=== PATIENT | male | born 1940 | race African-American/Black ===

== ENCOUNTER 2020-12-19 17:30 | Inpatient (IN) ==
[2020-12-19 17:47] VITALS: BMI 18.2
--- NOTE | 2020-12-19 17:58 | DR.DIZZY ---
HPI Time seen Time Seen by Provider: 12/19/20 17:51 PCP Primary Care Physician: unknown Complaint Chief Complaint Doctor Comments: ams- confused- fatigue- Chief Complaint:: ems transported pt from home. family there states that pt has not been himself and has no illnesses. he has not got up the last 3 days and has been confused. pt is severly emiaciated and verbal communication is diff to understand. Self Treatment fo Chief Complaint: o2 via ems increased o2 sat to 90% had been low on ems arrival COVID-19 Coronavirus risk:travel/contact w/high risk person: No Has patient experienced Coronavirus symptoms: Yes Nurses Notes Reviewed Nurses Notes Review: Yes Source History Provided: EMS Mode of Arrival Mode of Arrival: EMS Timing Onset of Chief Complaint: 12/19/20 Symptom Onset: Unknown Location of Weakness Weakness Location: Generalized Context Stroke Symptoms: None Associated signs and symptoms Associated Signs and Symptoms: Weak PMH PMH Past Medical History: No Past Medical History Comment: unknown Past Surgical History: No (unknown) Family History History of Family Medical Conditions: No (unknown) Social History Do you use any recreational Drugs:: No Lives With: Family Lives Where: Home Travel Risk Coronavirus risk:travel/contact w/high risk person: No Infectious screening In the last 2 months have you had wt loss of >10#?: NO Have you had fever, night sweats or hemotysis?: No Have you traveled outside the country in the last 6 months?: No Isolation: Standard ROS Review of Systems Constitutional: See HPI Eyes: No Symptoms Reported ENTM: No Symptoms Reported Respiratoy: See HPI Cardiovascular: See HPI Gastrointestinal/Abdominal: See HPI Genitourinary: No Symptoms Reported Neurological: No Symptoms Reported Musculoskeletal: No Symptoms Reported Integumentary: No Symptoms Reported All Other Systems: Reviewed and Negative PE Vital Signs Vitals: Temperature 98.0 F Pulse Rate 91 Respiratory Rate 20 Blood Pressure 134/83 O2 Sat by Pulse Oximetry 89 General General Appearance: Lethargic and In Distress Head Head Exam: Normal Inspection, Atraumatic and Normocephalic Eyes Eye exam: Normal Appearance and PERRL ENT ENT Exam: Normal Exam Neck Neck Exam: Normal Inspection and Full ROM Respiratory Respiratory Exam: Normal Lung Sounds Bilat; negative Accessory Muscle Use Cardiovascular Cardiovascular Exam: Regular Rate and Normal Heart Sounds Abdominal Exam Abdominal Exam: Normal Inspection and Normal Bowel Sounds Extremeties Extremities Exam: Normal Inspection and Full ROM Back Back Exam: Normal Inspection and Full ROM Neurologic Neurological Exam: Other (mild ly confused and somnolent) Patient Oriented To: Person and Place Skin Skin Exam: Warm and Dry ROR Labs Reviewed Laboratory Results Reviewed?: Yes Result Diagrams: 12/19/20 19:12/19/20 19: Laboratory: WBC 4.1 X10^3/uL (3.6-10.0) 12/19/20: RBC 5.43 X10^6/uL (4.7-6.0) 12/19/20 19: Hgb 16.7 g/dL (13.5-18.0) 12/19/20 19: Hct 48.7 % (42.0-54.0) 12/19/20: MCV 89.7 fL (80.0-100.0) 12/19/20 19: MCH 30.7 pg (27.0-34.0) 12/19/20: MCHC 34.2 g/dL (33.0-35.0) 12/19/20 19: RDW 13.4 % (11.6-16.5) 12/19/20 19: Plt Count 163 X10^3/uL (150.0-450.0) 12/19/20 19: MPV 9.8 fL (7.4-11.0) 12/19/20 19: Neut % (Auto) 85.6 % (42.0-75.0) H 12/19/20 19: Lymph % (Auto) 7.9 % (21.0-51.0) L 12/19/20 19: [place] % (Auto) 6.2 % (0.0-13.0) 12/19/20 19: Eos % (Auto) 0.1 % (0.9-2.9) L 12/19/20 19: Baso % (Auto) 0.2 % (0.2-1.0) 12/19/20 19: Neut # (Auto) 3.5 x10^3/uL (2.2-4.8) 12/19/20 19: Lymph # (Auto) 0.3 X10^3/uL (1.3-2.9) L 12/19/20 19:01 [place] # (Auto) 0.3 x10^3/uL (0.3-0.8) 12/19/20 19:01 Eos # (Auto) 0.0 x10^3/uL (0.0-0.2) 12/19/20 19:01 Baso # (Auto) 0.0 X10^3/uL (0.0-0.1) 12/19/20 19:01 Absolute Nucleated RBC 0.7 /100WBC 12/19/20 19:01 Sample Site Lr 12/19/20 22:00 ABG pH 7.510 (7.35-7.45) H 12/19/20 22:00 ABG pCO2 23.0 mmHg (35.0-45.0) L 12/19/20 22:00 ABG pO2 49.0 mmHg (80.0-100.0) L* 12/19/20 22:00 ABG HCO3 18.4 mmol/L (22-26) L 12/19/20 22:00 ABG O2 Saturation 88.0 % (90-100) L 12/19/20 22:00 ABG Base Excess -3.0 mmol/L (-2.0-2.0) L 12/19/20 22:00 Andrew Test Pos 12/19/20 22:00 A-a Gradient 72.0 mmHg 12/19/20 22:00 FiO2 21.0 12/19/20 22:00 Blood Gas Comments Daron well ae 12/19/20 22:00 Sodium 139 mmol/L (136-145) 12/19/20 19:01 Corrected Sodium TNP 12/19/20 19:01 Potassium 4.0 mmol/L (3.5-5.1) 12/19/20 19:01 Chloride 101 mmol/L (98-107) 12/19/20 19:01 Carbon Dioxide 25.8 mmol/L (21-32) 12/19/20 19:01 BUN 19 mg/dL (7-18) H 12/19/20 19:01 Creatinine 1.12 mg/dL (0.70-1.30) 12/19/20 19:01 Est GFR (MDRD) Af Amer > 60 (>60) 12/19/20 19:01 Est GFR (MDRD) Non-Af > 60 (>60) 12/19/20 19:01 Glucose 105 mg/dL (65-99) H 12/19/20 19:01 Calcium 9.1 mg/dL (8.5-10.1) 12/19/20 19:01 Corrected Calcium 10.1 mg/dL (8.5-10.1) 12/19/20 19:01 Total Bilirubin 1.30 mg/dL (0.2-1.0) H 12/19/20 19:01 AST 59 Units/L (15-37) H 12/19/20 19:01 ALT 30 Units/L (12-78) 12/19/20 19:01 Alkaline Phosphatase 60 Units/L (46-116) 12/19/20 19:01 Total Protein 8.4 g/dL (6.4-8.2) H 12/19/20 19:01 Albumin 2.8 g/dL (3.4-5.0) L 12/19/20 19:01 Globulin 5.6 g/dL (2.5-4.5) H 12/19/20 19:01 Albumin/Globulin Ratio 0.5 Ratio (1.1-2.1) L 12/19/20 19:01 Lipase 185 Units/L (73-393) 12/19/20 19:01 Specimen Type Clean catch urine 12/20/20 02:17 Urine Color Dark yellow (YELLOW) 12/20/20 02:17 Urine Appearance Hazy (CLEAR) 12/20/20 02:17 Urine pH 6.0 (5.0 - 8.0) 12/20/20 02:17 Ur Specific [place] 1.015 (1.000-1.030) 12/20/20 02:17 Urine Protein 3+ (NEGATIVE) 12/20/20 02:17 Urine Glucose (UA) Negative (NEGATIVE) 12/20/20 02:17 Urine Ketones 2+ (NEGATIVE) 12/20/20 02:17 Urine Occult Blood 3+ (NEGATIVE) 12/20/20 02:17 Urine Nitrite Negative (NEGATIVE) 12/20/20 02:17 Urine Bilirubin 1+ (NEGATIVE) 12/20/20 02:17 Urine Urobilinogen 3+ (NORMAL) 12/20/20 02:17 Ur Leukocyte Esterase Negative (NEGATIVE) 12/20/20 02:17 Urine RBC 3-5 /HPF (0-3) A 12/20/20 02:17 Urine WBC 3-5 /HPF (0-5) 12/20/20 02:17 Ur Squamous Epith Cells Rare /HPF (NEGATIVE) 12/20/20 02:17 Urine Bacteria Trace /HPF (NEGATIVE) 12/20/20 02:17 Urine Mucus Few /HPF (NEGATIVE) 12/20/20 02:17 Urine Sperm Numerous /HPF (NEGATIVE) 12/20/20 02:17 Ur Culture Indicated? No/not indicated 12/20/20 02:17 SARS-CoV-2 (PCR) Positive (NEGATIVE) A 12/19/20 19:32 Influenza Type A (PCR) Negative (NEGATIVE) 12/19/20 19:32 Influenza Type B (PCR) Negative (NEGATIVE) 12/19/20 19:32 RSV (PCR) Negative (NEGATIVE) 12/19/20 19:32 XRAY X-ray Results: pos infiltrates on CXR Opioid Opioid Risk Tool Age (Jorge box if 16-45): No Total: 0 Total Score Risk Category: Low Risk Copyright: Apolinar RICE predicting aberrant behaviors Diagnosis Discharge Problem: COVID, Acute respiratory distress ADDITIONAL NOTES Additional Notes Additional Notes: admit to dr borjas
--- NOTE | 2020-12-19 19:02 | CT ---
BRAIN W/O CONCLINICAL INDICATION: CONFUSIONTECHNIQUE: Images were obtained through the head per standard CT protocol. Multiplanar reformatted images were generated from the CT dataset. Dose reduction techniques including Automated Exposure Control (AEC) and adjustment of mA and kV were utlized.COMPARISON:NoneFINDINGS:Diffuse patchy and confluent periventricular and subcortical hypoattenuation with associated volume loss . There is no evidence of acute infarction, intracranial hemorrhage, mass or mass effect, or abnormal extra-axial collection . The density of the larger dural venous sinuses is normal. Age-related, ex-vacuo dilatation of the ventricles and sulci . The skull base and calvarium are normal . The included paranasal sinuses and mastoid air cells are predominantly clear .IMPRESSION:1. No acute intracranial abnormality. Chronic microangiopathic changes and ex vacuo dilatation of the ventricles and sulci.[]Electronically signed by: GLEN CHIN (Dec 19, 2020 19:00:37)
--- NOTE | 2020-12-19 19:08 | RAD ---
CHEST, 1 VIEWHISTORY: he has not got up the last 3 days and has been confused. pt is severly emiaciated and verbal communication is diff to understandStudy: Single view of the chest.Comparison:NoneFindings:The cardiomediastinal silhouette is normal. Bilateral interstitial prominence, possible early alveolar infiltrates. No focal consolidations, pleural effusions or pneumothorax. Osseous structures demonstrate no acute abnormality.IMPRESSION:1. Bilateral interstitial prominence and early alveolar infiltrates. Findings may represent atypical infection, including viral etiologies.Electronically signed by: GLEN CHIN (Dec 19, 2020 19:06:01)
--- NOTE | 2020-12-19 19:09 | CT ---
HISTORYAbdominal painSTUDYABDOMEN/PELVIS W/O CONCOMPARISONNoneTECHNIQUENon-contrasted axial CT images of the abdomen and pelvis were obtained and reformatted into coronal and sagittal planes for further evaluation.Radiation dose: 472.50 mGy-cm total DLPFINDINGSGround-glass airspace opacities throughout the majority of the imaged lung parenchyma.Mild centrilobular emphysema.Stomach appears normal.Hepatic cysts.Otherwise, the liver, spleen, pancreas and adrenal glands are unremarkable.Atherosclerotic changes to the aorta and iliac vessels without aneurysm.Gallbladder appears normal.No intra or extrahepatic biliary dilatation.Unremarkable appearance of the kidneys.No hydronephrosis, hydroureter or ureteral calculus.Unremarkable appearance of the urinary bladder.Normal appearance of the small and large bowel.Reproductive structures are unremarkable.No evidence of acute appendicitis.No pneumoperitoneum.No significant fluid collection.No adenopathy.No acute osseous abnormality.Moderate degenerative disc disease at L4-L5.Otherwise, mild degenerative disc disease in the remainder of the thoracolumbar spine.Grade 1 anterolisthesis of L4-L5; secondary to posterior degenerative changes.Severe facet degenerative changes from L3-S1.IMPRESSION1. No acute intra-abdominal abnormality detected.2. Ground-glass airspace opacities throughout the majority of the imaged lung parenchyma. Findings are concerning for an atypical/viral infectious process. Recommend correlation with COVID-19 testing.3. Mild centrilobular emphysema.Electronically signed by: Reza Chong (Dec 19, 2020 19:07:49)
[2020-12-19 19:10] LABS: BASOPHILS % (AUTO) 0.2 % (0.2-1.0); EOSINOPHILS % (AUTO) 0.1 % (0.9-2.9); HEMATOCRIT 48.7 % (42.0-54.0); HEMOGLOBIN 16.7 g/dL (13.5-18.0); LYMPHOCYTES # (AUTO) 0.3 X10^3/uL (1.3-2.9); LYMPHOCYTES % (AUTO) 7.9 % (21.0-51.0); MEAN CORPUSCULAR HEMOGLOBIN 30.7 pg (27.0-34.0); MEAN CORPUSCULAR HGB CONC 34.2 g/dL (33.0-35.0); MEAN CORPUSCULAR VOLUME 89.7 fL (80.0-100.0); MEAN PLATELET VOLUME 9.8 fL (7.4-11.0); MONOCYTES # (AUTO) 0.3 x10^3/uL (0.3-0.8); MONOCYTES % (AUTO) 6.2 % (0.0-13.0); NEUTROPHILS # (AUTO) 3.5 x10^3/uL (2.2-4.8); NEUTROPHILS % (AUTO) 85.6 % (42.0-75.0); PLATELET COUNT 163 X10^3/uL (150.0-450.0); RED BLOOD COUNT 5.43 X10^6/uL (4.7-6.0); RED CELL DISTRIBUTION WIDTH 13.4 % (11.6-16.5); WHITE BLOOD COUNT 4.1 X10^3/uL (3.6-10.0)
[2020-12-19 19:23] LABS: ALANINE AMINOTRANSFERASE 30 Units/L (12-78); ALBUMIN 2.8 g/dL (3.4-5.0); ALKALINE PHOSPHATASE 60 Units/L (46-116); ASPARTATE AMINO TRANSFERASE 59 Units/L (15-37); BLOOD UREA NITROGEN 19 mg/dL (7-18); CALCIUM 9.1 mg/dL (8.5-10.1); CARBON DIOXIDE 25.8 mmol/L (21-32); CHLORIDE 101 mmol/L (98-107); COR CA(FOR HYPOALB) 10.1 mg/dL (8.5-10.1); CREATININE 1.12 mg/dL (0.70-1.30); LIPASE 185 Units/L (73-393); SODIUM 139 mmol/L (136-145); TOTAL PROTEIN 8.4 g/dL (6.4-8.2); eGFR NON BLACK RACES > 60 (>60)
[2020-12-19 22:05] LABS: ABG ALLEN TEST POS; ABG HCO3 18.4 mmol/L (22-26)
[2020-12-19] MEDS ORDERED: DECADRON INJ IVP ONE (22:11)
[2020-12-19] MEDS ORDERED: LOVENOX INJ 80 MG SYR SC ONE (22:12)
[2020-12-19] MEDS ORDERED: DECADRON INJ ONE (23:47)
[2020-12-19] MEDS ORDERED: LOVENOX INJ 60 MG SYR SC ONE (23:47)
[2020-12-20 02:31] LABS: BILIRUBIN,URINE 1+ (NEGATIVE); BLOOD/HEMOGLOBIN,URINE 3+ (NEGATIVE); GLUCOSE, URINE NEGATIVE (NEGATIVE); KETONES,URINE 2+ (NEGATIVE); LEUKOCYTE ESTERASE ,URINE NEGATIVE (NEGATIVE); NITRITES,URINE NEGATIVE (NEGATIVE); PROTEIN,URINE 3+ (NEGATIVE); UROBILINOGEN,URINE 3+ (NORMAL)
[2020-12-20 02:39] LABS: APPEARANCE,URINE HAZY (CLEAR); COLOR,URINE DARK YELLOW (YELLOW)
[2020-12-20 02:40] LABS: BACTERIA,URINE TRACE /HPF (NEGATIVE); MUCUS,URINE FEW /HPF (NEGATIVE); SPERM,URINE NUMEROUS /HPF (NEGATIVE); SQUAMOUS EPITHELIAL CELL,UR RARE /HPF (NEGATIVE)
[2020-12-20] MEDS ORDERED: NS 100 ML IV 100 ML ONE (09:47)
--- NOTE | 2020-12-20 11:12 | CT ---
CTA CHESTCLINICAL INDICATION: ELEVATED D-DIMERPROCEDURE: Non gated axial images of the chest were obtained with intravenous contrast according to pulmonary embolism protocol. MIPS were reconstructed Dose reduction techniques including Automated Exposure Control (AEC) and adjustment of mA and kV were utlized.COMPARISON:NoneFINDINGS:No evidence of a pulmonary embolism to the level of the segmental pulmonary arteries.The heart is normal in size . No pericardial effusion . Patchy bilateral ground-glass opacities are present. No suspicious mediastinal or axillary lymph nodes . No focal consolidations, pleural effusions or pneumothorax .Airways are patent . No suspicious pulmonary nodules or masses .Limited images of the upper abdomen are unremarkable.No aggressive osseous lesions.IMPRESSION:1. No evidence of pulmonary embolism.2. Patchy bilateral ground-glass opacities consistent with acute, atypical infection including viral etiologies.Electronically signed by: GLEN CHIN (Dec 20, 2020 11:10:47)
[2020-12-20] MEDS: NS 1000 ML 1,000 ML with MAGNESIUM SULFATE 50% INJ VIAL 1 G, MVI INJ (ADULT) 10 ML IV SCH ×3 (11:24)
[2020-12-20] MEDS ORDERED: XANAX PO PRN (13:36)
[2020-12-20] MEDS ORDERED: ATIVAN INJ 2 MG VIAL IVP ONE (13:37)
[2020-12-20] MEDS ORDERED: MORPHINE SULFATE INJ 2 MG INJ ONE (13:40)
[2020-12-20] MEDS: MORPHINE SULFATE INJ 2 MG INJ IVP PRN (13:44)
[2020-12-20] MEDS ORDERED: REMDESIVIR 200 MG in NS 250 ML IV 250 ML IV ONE (13:51)
[2020-12-20] MEDS ORDERED: PHARMACY CONSULT - IVERMECTIN XX SCH (14:00)
[2020-12-20 14:06] LABS: ABG BASE EXCESS -4.5 mmol/L (-2.0-2.0)
[2020-12-20 14:07] LABS: ABG ALLEN TEST POS; ABG HCO3 17.8 mmol/L (22-26)
[2020-12-20] MEDS ORDERED: NS 50 ML IV 50 ML IV ONE ×2 (15:07→19:56)
[2020-12-20] MEDS ORDERED: NS 250 ML IV 250 ML IV ONE (15:07)
[2020-12-20] MEDS ORDERED: REMDESIVIR IV ONE (15:07)
[2020-12-20] MEDS ORDERED: NS 1000 ML 1,000 ML ONE (15:07)
[2020-12-20] MEDS ORDERED: IVERMECTIN ONE (15:07)
[2020-12-20] MEDS ORDERED: ATIVAN INJ 2 MG VIAL ONE (15:08)
[2020-12-20 15:20] LABS: CKMB % 0.6 % (<4); CREATINE KINASE 177 Units/L (39-308); CREATINE KINASE MB < 1.0 ng/mL (0-4.0); TROPONIN I < 0.02 ng/mL (0-1.5)
[2020-12-20] MEDS: ASCORBIC ACID INJ MULTI-DOSE VIAL 1,500 MG in NS 100 ML IV 100 ML IV SCH ×2 (15:39→22:09)
[2020-12-20] MEDS: NS 1000 ML 1,000 ML IV SCH (15:39)
[2020-12-20] MEDS ORDERED: ASCORBIC ACID INJ MULTI-DOSE VIAL IV ONE (19:56)
[2020-12-20] MEDS ORDERED: SOLU-Medrol 125 MG VIAL ONE (19:56)
[2020-12-20] MEDS ORDERED: PEPCID TAB 40 MG ONE (19:56)
[2020-12-20] MEDS ORDERED: LOVENOX INJ 30 MG SYR SC ONE (19:56)
[2020-12-20] MEDS ORDERED: ZINC SULFATE ONE (19:56)
[2020-12-20] MEDS: BROVANA IN SCH (20:40)
[2020-12-20] MEDS: PULMICORT NEB TX 0.5 MG NEB SCH (20:40)
[2020-12-20] MEDS: IVERMECTIN PO SCH (22:08)
[2020-12-20] MEDS: PEPCID TAB 40 MG PO SCH (22:09)
[2020-12-20] MEDS: SOLU-Medrol 125 MG VIAL IVP SCH (22:09)
[2020-12-20] MEDS: LOVENOX INJ 30 MG SYR SC SCH (22:09)
[2020-12-20] MEDS: ZINC SULFATE PO SCH (22:09)
[2020-12-21] MEDS ORDERED: ASCORBIC ACID INJ MULTI-DOSE VIAL IV ONE ×3 (02:45→13:39)
[2020-12-21] MEDS ORDERED: SOLU-Medrol 125 MG VIAL ONE ×2 (02:45→13:38)
[2020-12-21] MEDS ORDERED: NS 100 ML IV 100 ML ONE ×3 (03:00→13:39)
[2020-12-21] MEDS: ASCORBIC ACID INJ MULTI-DOSE VIAL 1,500 MG in NS 100 ML IV 100 ML IV SCH ×4 (03:28→21:24)
[2020-12-21] MEDS: SOLU-Medrol 125 MG VIAL IVP SCH ×3 (05:17→21:24)
[2020-12-21] MEDS ORDERED: XANAX ONE (08:09)
[2020-12-21] MEDS ORDERED: REMDESIVIR IV ONE (08:09)
[2020-12-21] MEDS ORDERED: ZINC SULFATE ONE (08:09)
[2020-12-21] MEDS ORDERED: PEPCID TAB 40 MG ONE (08:09)
[2020-12-21] MEDS ORDERED: LOVENOX INJ 30 MG SYR SC ONE (08:10)
[2020-12-21] MEDS ORDERED: NS 250 ML IV 250 ML IV ONE (08:10)
[2020-12-21 08:41] LABS: BASOPHILS % (AUTO) 0.2 % (0.2-1.0); HEMATOCRIT 44.1 % (42.0-54.0); HEMOGLOBIN 15.1 g/dL (13.5-18.0); LYMPHOCYTES # (AUTO) 0.3 X10^3/uL (1.3-2.9); LYMPHOCYTES % (AUTO) 3.9 % (21.0-51.0); MEAN CORPUSCULAR HEMOGLOBIN 30.7 pg (27.0-34.0); MEAN CORPUSCULAR HGB CONC 34.2 g/dL (33.0-35.0); MEAN CORPUSCULAR VOLUME 89.6 fL (80.0-100.0); MEAN PLATELET VOLUME 9.5 fL (7.4-11.0); MONOCYTES # (AUTO) 0.3 x10^3/uL (0.3-0.8); MONOCYTES % (AUTO) 4.8 % (0.0-13.0); NEUTROPHILS # (AUTO) 6.4 x10^3/uL (2.2-4.8); NEUTROPHILS % (AUTO) 91.1 % (42.0-75.0); PLATELET COUNT 198 X10^3/uL (150.0-450.0); RED BLOOD COUNT 4.92 X10^6/uL (4.7-6.0); RED CELL DISTRIBUTION WIDTH 13.5 % (11.6-16.5)
[2020-12-21 08:57] LABS: ALANINE AMINOTRANSFERASE 30 Units/L (12-78); ALBUMIN 2.3 g/dL (3.4-5.0); ALKALINE PHOSPHATASE 51 Units/L (46-116); ASPARTATE AMINO TRANSFERASE 46 Units/L (15-37); BLOOD UREA NITROGEN 17 mg/dL (7-18); CALCIUM 8.3 mg/dL (8.5-10.1); CARBON DIOXIDE 23.3 mmol/L (21-32); CHLORIDE 107 mmol/L (98-107); COR CA(FOR HYPOALB) 9.7 mg/dL (8.5-10.1); COR NA(FOR HYPERGLY) 146 mmol/L (136-145); CREATININE 1.03 mg/dL (0.70-1.30); SODIUM 144 mmol/L (136-145); TOTAL PROTEIN 7.6 g/dL (6.4-8.2); eGFR NON BLACK RACES > 60 (>60)
[2020-12-21] MEDS: PEPCID TAB 40 MG PO SCH ×2 (09:15→21:24)
[2020-12-21] MEDS: REMDESIVIR 100 MG in NS 250 ML IV 250 ML IV SCH (09:15)
[2020-12-21] MEDS: ZINC SULFATE PO SCH ×2 (09:15→21:24)
[2020-12-21] MEDS: LOVENOX INJ 30 MG SYR SC SCH ×2 (09:16→21:25)
[2020-12-21] MEDS: PULMICORT NEB TX 0.5 MG NEB SCH ×2 (09:20→22:40)
[2020-12-21] MEDS: BROVANA IN SCH ×2 (09:20→22:40)
[2020-12-21 09:24] LABS: BAND NEUTROPHILS % 9 % (0-10); PLATELET MORPHOLOGY COMMENT NORMAL (NORMAL)
[2020-12-21] MEDS: IVERMECTIN PO SCH (09:39)
--- NOTE | 2020-12-21 10:29 | RAD ---
HISTORYCOVID, PNEUMONIA FOLLOW UPSTUDYCHEST x-ray, 1 VIEWCOMPARISONX-ray 12/19/2020 and CTA 12/20/2020FINDINGSThe trachea is midline. The heart is normal in size. Mild hilar prominence is probably due to lymphadenopathy suggested on CT.Hazy density throughout the mid-lungs are greatest in the periphery of the lungs. Lungs appear hyperinflated. This appearance is similar to prior exams. No pneumothorax or pleural effusion is seen.No acute bony abnormality is seen.IMPRESSIONPersistent diffuse hazy densities in the lungs probably from COVID-19 pneumonia. Underlying COPD and chronic interstitial lung disease are not excluded given the bronchiectasis seen on prior CTA.Electronically signed by: Jonathan Almaraz (Dec 21, 2020 10:27:52)
[2020-12-21] MEDS: NS 1000 ML 1,000 ML with MAGNESIUM SULFATE 50% INJ VIAL 1 G, MVI INJ (ADULT) 10 ML IV SCH ×3 (11:48)
[2020-12-21] MEDS: NS 1000 ML 1,000 ML IV SCH (14:24)
--- NOTE | 2020-12-21 23:17 | DR.H&P ---
H&P History & Physical for Day of: H&P Date: 12/20/20 Chief Complaint Chief Complaint: Shortness of breath Generalized weakness and fatigue Allergies Allergies Allergy/AdvReac Type Severity Reaction Status Date / Time Penicillins Allergy Verified 12/20/20 14:17 History of Present Illness History of Present Illness: Pt is a 80 year old male past medical history alcohol use disorder and is a poor historian presenting with shortness of breath and generalized weakness for the past week that has progressively worsened. Per ED physician, family stated that patient has been confused and "not acting like himself" for the past few days. EMS was called and noted hypoxia on initial evaluation. Pt was also complaining of some abdominal pain. Labs/imaging: Wbc 4.1, Hgb 16.7, Plt 163, Na 149, K 3.4, Creatinine 0.98, Glucose 141, CRP 224, UA negative, D-dimer 3.60, ABG: pH 7.5, pCO2 23, pO2 49, HCO3 18, O2sat 88% on RA. CTAP:1. No acute intra-abdominal abnormality detected. 2. Ground-glass airspace opacities throughout the majority of the imaged lung parenchyma. Findings are concerning for an atypical/viral infectious process. Recommend correlation with COVID-19 testing. 3. Mild centrilobular emphysema. CXR:1. Bilateral interstitial prominence and early alveolar infiltrates. Findings may represent atypical infection, including viral etiologies. Brain CT: 1. No acute intracranial abnormality. Chronic microangiopathic changes and ex vacuo dilatation of the ventricles and sulci. Due to elevated D-dimer, CTA Chest was obtained that revealed: 1. No evidence of pulmonary embolism. 2. Patchy bilateral ground-glass opacities consistent with acute, atypical infection including viral etiologies. Pt tested positive for COVID-19 and will start on treatment protocol that includes: IVF, Remdesivir, Solumedrol 125mg q6h, scheduled Bronchodilators, Antibiotics: Levaquin, Ivermectin, Lovenox 30mg BID, immune supporting supplements, supplemental O2, I/S, Respiratory therapy consult, Pneumonia protocol. Pt was placed on non-rebreather supplemental oxygen at FiO2 100%, no heated high flow oxygen available at this time due to shortage of supply due to overflow admitted patient from COVID-19 pneumonia. Wean/titrate oxygen as tolerated. Pt with alcohol use history, thiamine and banana bag given. Scheduled IV ativan for withdrawal prophylaxis. Continue to monitor and follow up labs/imaging. Time spent on clinical assessment, reviewing labs and imaging, decision making, and documentation greater than 45 minutes. Past Medical History Past Medical History: Family History Family Medical History: Diabetes Mellitus and Hypertension Social History Does any household member use tobacco: No Alcohol Use: DAILY Medications Home Medications: Penicillins Allergy (Verified 12/20/20 14:17) CONTINUE taking the following medications NK 12/20/20 [History] Labs Result Diagrams: 12/22/20 05:53 12/22/20 05:53 Labs: Laboratory WBC 7.0 X10^3/uL (3.6-10.0) 12/21/20 08:28 RBC 4.92 X10^6/uL (4.7-6.0) 12/21/20 08:28 Hgb 15.1 g/dL (13.5-18.0) 12/21/20 08:28 Hct 44.1 % (42.0-54.0) 12/21/20 08:28 MCV 89.6 fL (80.0-100.0) 12/21/20 08:28 MCH 30.7 pg (27.0-34.0) 12/21/20 08:28 MCHC 34.2 g/dL (33.0-35.0) 12/21/20 08:28 RDW 13.5 % (11.6-16.5) 12/21/20 08:28 Plt Count 198 X10^3/uL (150.0-450.0) 12/21/20 08:28 Plt Count Comment Adequate (ADEQUATE) 12/21/20 08:28 MPV 9.5 fL (7.4-11.0) 12/21/20 08:28 Neut % (Auto) 91.1 % (42.0-75.0) H 12/21/20 08:28 Lymph % (Auto) 3.9 % (21.0-51.0) L 12/21/20 08:28 [place] % (Auto) 4.8 % (0.0-13.0) 12/21/20 08:28 Eos % (Auto) 0.0 % (0.9-2.9) L 12/21/20 08:28 Baso % (Auto) 0.2 % (0.2-1.0) 12/21/20 08:28 Neut # (Auto) 6.4 x10^3/uL (2.2-4.8) H 12/21/20 08:28 Lymph # (Auto) 0.3 X10^3/uL (1.3-2.9) L 12/21/20 08:28 [place] # (Auto) 0.3 x10^3/uL (0.3-0.8) 12/21/20 08:28 Eos # (Auto) 0.0 x10^3/uL (0.0-0.2) 12/21/20 08:28 Baso # (Auto) 0.0 X10^3/uL (0.0-0.1) 12/21/20 08:28 Absolute Nucleated RBC 0.1 /100WBC 12/21/20 08:28 Total Counted 100 12/21/20 08:28 Neutrophils % (Manual) 81 % (39-76) H 12/21/20 08:28 Band Neutrophils % 9 % (0-10) 12/21/20 08:28 Lymphocytes % (Manual) 8 % (13-43) L 12/21/20 08:28 Monocytes % (Manual) 2 % (4-9) L 12/21/20 08:28 Plt Morphology Comment Normal (NORMAL) 12/21/20 08:28 RBC Morphology Normal (NORMAL) 12/21/20 08:28 D-Dimer 3.60 ug/ml (0.0-0.57) H* 12/20/20 08:40 Sample Site Lra 12/20/20 14:03 ABG pH 7.460 (7.35-7.45) H 12/20/20 14:03 ABG pCO2 25.0 mmHg (35.0-45.0) L 12/20/20 14:03 ABG pO2 65.0 mmHg (80.0-100.0) L 12/20/20 14:03 ABG HCO3 17.8 mmol/L (22-26) L* 12/20/20 14:03 ABG O2 Saturation 94.0 % (90-100) 12/20/20 14:03 ABG Base Excess -4.5 mmol/L (-2.0-2.0) L 12/20/20 14:03 Andrew Test Pos 12/20/20 14:03 A-a Gradient 617.0 mmHg 12/20/20 14:03 FiO2 100.0 12/20/20 14:03 Blood Gas Comments Pt nancy well eb 12/20/20 14:03 Sodium 144 mmol/L (136-145) 12/21/20 08:28 Corrected Sodium 146 mmol/L (136-145) H 12/21/20 08:28 Potassium 3.7 mmol/L (3.5-5.1) 12/21/20 08:28 Chloride 107 mmol/L (98-107) 12/21/20 08:28 Carbon Dioxide 23.3 mmol/L (21-32) 12/21/20 08:28 BUN 17 mg/dL (7-18) 12/21/20 08:28 Creatinine 1.03 mg/dL (0.70-1.30) 12/21/20 08:28 Est GFR (MDRD) Af Amer > 60 (>60) 12/21/20 08:28 Est GFR (MDRD) Non-Af > 60 (>60) 12/21/20 08:28 Glucose 196 mg/dL (65-99) H 12/21/20 08:28 Calcium 8.3 mg/dL (8.5-10.1) L 12/21/20 08:28 Corrected Calcium 9.7 mg/dL (8.5-10.1) 12/21/20 08:28 Total Bilirubin 1.10 mg/dL (0.2-1.0) H 12/21/20 08:28 AST 46 Units/L (15-37) H 12/21/20 08:28 ALT 30 Units/L (12-78) 12/21/20 08:28 Alkaline Phosphatase 51 Units/L (46-116) 12/21/20 08:28 Creatine Kinase 177 Units/L (39-308) 12/20/20 14:27 CK-MB (CK-2) < 1.0 ng/mL (0-4.0) 12/20/20 14:27 CK/CKMB % Calc 0.6 % (<4) 12/20/20 14:27 Troponin I < 0.02 ng/mL (0-1.5) 12/20/20 14:27 C-Reactive Protein 224.50 mg/L (0-3.0) H 12/21/20 08:28 Total Protein 7.6 g/dL (6.4-8.2) 12/21/20 08:28 Albumin 2.3 g/dL (3.4-5.0) L 12/21/20 08:28 Globulin 5.3 g/dL (2.5-4.5) H 12/21/20 08:28 Albumin/Globulin Ratio 0.4 Ratio (1.1-2.1) L 12/21/20 08:28 Lipase 185 Units/L (73-393) 12/19/20 19:01 Specimen Type Clean catch urine 12/20/20 02:17 Urine Color Dark yellow (YELLOW) 12/20/20 02:17 Urine Appearance Hazy (CLEAR) 12/20/20 02:17 Urine pH 6.0 (5.0 - 8.0) 12/20/20 02:17 Ur Specific [place] 1.015 (1.000-1.030) 12/20/20 02:17 Urine Protein 3+ (NEGATIVE) 12/20/20 02:17 Urine Glucose (UA) Negative (NEGATIVE) 12/20/20 02:17 Urine Ketones 2+ (NEGATIVE) 12/20/20 02:17 Urine Occult Blood 3+ (NEGATIVE) 12/20/20 02:17 Urine Nitrite Negative (NEGATIVE) 12/20/20 02:17 Urine Bilirubin 1+ (NEGATIVE) 12/20/20 02:17 Urine Urobilinogen 3+ (NORMAL) 12/20/20 02:17 Ur Leukocyte Esterase Negative (NEGATIVE) 12/20/20 02:17 Urine RBC 3-5 /HPF (0-3) A 12/20/20 02:17 Urine WBC 3-5 /HPF (0-5) 12/20/20 02:17 Ur Squamous Epith Cells Rare /HPF (NEGATIVE) 12/20/20 02:17 Urine Bacteria Trace /HPF (NEGATIVE) 12/20/20 02:17 Urine Mucus Few /HPF (NEGATIVE) 12/20/20 02:17 Urine Sperm Numerous /HPF (NEGATIVE) 12/20/20 02:17 Ur Culture Indicated? No/not indicated 12/20/20 02:17 SARS-CoV-2 (PCR) Positive (NEGATIVE) A 12/19/20 19:32 Influenza Type A (PCR) Negative (NEGATIVE) 12/19/20 19:32 Influenza Type B (PCR) Negative (NEGATIVE) 12/19/20 19:32 RSV (PCR) Negative (NEGATIVE) 12/19/20 19:32 Review of Systems Constitutional: Chills and Weakness Eyes: No Symptoms Reported ENT: No Symptoms Reported Respiratory: Cough and Shortness of Breath Cardiovascular: No Symptoms Reported Gastrointestinal: No Symptoms Reported Genitourinary: No Symptoms Reported Musculoskeletal: No Symptoms Reported Skin: No Symptoms Reported Neurological: Confusion Physical Exam Vital Signs: Temperature 96.3 F Pulse Rate [Left Brachial] 81 Pulse Rate 90 Respiratory Rate 18 Blood Pressure [Left Arm] 130/72 Blood Pressure 115/72 O2 Sat by Pulse Oximetry 92 Oriented: Other (Alert, answers yes or no with significant fatigue) Eyes: Normal Ear: Normal Nose: Normal Throat: Normal Respiratory: Diminished Throughout, Rales Throughout and Wheezes Throughout Cardiovascular: Normal : Normal Auscultation: Bowel Sounds: Normal Palpation: Normal Tenderness: Normal Skin: Normal Musculoskeletal: Normal Psychiatric: Normal Mood Description: Calm and Appropriate Affect: Normal Speech Pattern: Appropriate Assessment/Plan (1) Pneumonia due to COVID-19 virus: Status: Acute Plan: pneumonia protocol (2) Alcohol use disorder: Status: Acute Review H&P Reviewed: Yes Patient was examined?: Yes
[2020-12-22] MEDS: ASCORBIC ACID INJ MULTI-DOSE VIAL 1,500 MG in NS 100 ML IV 100 ML IV SCH ×4 (03:04→21:03)
[2020-12-22] MEDS: SOLU-Medrol 125 MG VIAL IVP SCH ×4 (03:05→21:09)
[2020-12-22 06:49] LABS: BASOPHILS % (AUTO) 0.1 % (0.2-1.0); HEMATOCRIT 41.9 % (42.0-54.0); HEMOGLOBIN 14.2 g/dL (13.5-18.0); LYMPHOCYTES # (AUTO) 0.1 X10^3/uL (1.3-2.9); LYMPHOCYTES % (AUTO) 2.5 % (21.0-51.0); MEAN CORPUSCULAR HEMOGLOBIN 30.9 pg (27.0-34.0); MEAN CORPUSCULAR VOLUME 90.8 fL (80.0-100.0); MEAN PLATELET VOLUME 9.3 fL (7.4-11.0); MONOCYTES # (AUTO) 0.2 x10^3/uL (0.3-0.8); MONOCYTES % (AUTO) 3.8 % (0.0-13.0); NEUTROPHILS # (AUTO) 4.6 x10^3/uL (2.2-4.8); NEUTROPHILS % (AUTO) 93.6 % (42.0-75.0); PLATELET COUNT 188 X10^3/uL (150.0-450.0); RED BLOOD COUNT 4.61 X10^6/uL (4.7-6.0); RED CELL DISTRIBUTION WIDTH 13.7 % (11.6-16.5); WHITE BLOOD COUNT 4.9 X10^3/uL (3.6-10.0)
[2020-12-22 07:21] LABS: ALANINE AMINOTRANSFERASE 26 Units/L (12-78); ALKALINE PHOSPHATASE 48 Units/L (46-116); ASPARTATE AMINO TRANSFERASE 46 Units/L (15-37); BLOOD UREA NITROGEN 17 mg/dL (7-18); CALCIUM 8.2 mg/dL (8.5-10.1); CARBON DIOXIDE 23.7 mmol/L (21-32); CHLORIDE 113 mmol/L (98-107); COR CA(FOR HYPOALB) 9.8 mg/dL (8.5-10.1); COR NA(FOR HYPERGLY) 150 mmol/L (136-145); CREATININE 0.98 mg/dL (0.70-1.30); PLATELET MORPHOLOGY COMMENT NORMAL (NORMAL); SODIUM 149 mmol/L (136-145); TOTAL PROTEIN 6.8 g/dL (6.4-8.2); eGFR NON BLACK RACES > 60 (>60)
--- NOTE | 2020-12-22 08:09 | RAD ---
HISTORYCOVID PNEUMONIASTUDYCHEST, 1 [id number] bilateral areas of opacity representing bronchopneumonia have progressed slightly since yesterday.No pleural effusion or pneumothorax.Heart size is normal.Bones are unremarkable.EKG leads are noted.IMPRESSION1. Bronchopneumonia, slightly progressedElectronically signed by: John Cortez (Dec 22, 2020 08:07:59)
[2020-12-22] MEDS ORDERED: MAGNESIUM SULFATE 1 GRAM/100 mL PREMIX 1 GM/100 ML BAG IV PRN (08:19)
[2020-12-22] MEDS ORDERED: POTASSIUM CHL 40 MEQ/NS 0.45% 500 ML IV PRN (08:19)
[2020-12-22] MEDS ORDERED: POTASSIUM CHLORIDE LIQ 20 MEQ UDC PO PRN (08:19)
[2020-12-22] MEDS ORDERED: KLOR-CON PO PRN (08:19)
[2020-12-22] MEDS ORDERED: POTASSIUM CHL 60 MEQ/NS 0.45% 500 ML IV PRN (08:19)
[2020-12-22] MEDS ORDERED: MICRO K EXTEN CAP 10 MEQ PO PRN (08:19)
[2020-12-22] MEDS ORDERED: K-DUR TAB 20 MEQ PO PRN (08:19)
[2020-12-22] MEDS ORDERED: PULMICORT NEB TX 0.5 MG NEB ONE (09:06)
[2020-12-22] MEDS ORDERED: BROVANA ONE (09:07)
[2020-12-22] MEDS: ATIVAN INJ 2 MG VIAL IVP SCH ×2 (09:17→21:04)
[2020-12-22] MEDS: REMDESIVIR 100 MG in NS 250 ML IV 250 ML IV SCH (09:21)
[2020-12-22] MEDS: LOVENOX INJ 30 MG SYR SC SCH ×2 (09:22→21:04)
[2020-12-22] MEDS: PEPCID TAB 40 MG PO SCH ×2 (09:26→21:03)
[2020-12-22] MEDS: VITAMIN D3 125 mcg (5,000 UNITS) PO SCH (09:26)
[2020-12-22] MEDS: VITAMIN A PO SCH (09:26)
[2020-12-22] MEDS: ZINC SULFATE PO SCH ×2 (09:27→21:10)
[2020-12-22] MEDS: IVERMECTIN PO SCH (09:46)
[2020-12-22] MEDS: K-RIDER 10 MEQ/NS 100 ML 10 MEQ/100 ML BAG IV PRN ×2 (09:59→11:17)
[2020-12-22] MEDS: BROVANA IN SCH ×2 (10:14→21:59)
[2020-12-22] MEDS: PULMICORT NEB TX 0.5 MG NEB SCH ×2 (10:15→21:59)
[2020-12-22 10:16] LABS: ABG ALLEN TEST POS; ABG HCO3 25.5 mmol/L (22-26)
--- NOTE | 2020-12-22 10:55 | PCM.PROG ---
Progress Note Progress Note for Day of Date of Exam: 12/21/20 Subjective Subjective: Pt is a 80 year old male past medical history alcohol use disorder admitted for Covid-19 pneumonia with hypoxia. This morning patient's respiratory status remains the same. No acute events overnight. He is currently utilizing non-rebreather supplemental oxygen with FiO2 100%. Labs/imaging: Wbc 7.0, Hgb 15.1, Plt 198, Na 149, K 3.4, Creatinine 0.98, Glucose 141, CRP 222, ABG: pH 7.46, pCO2 25, pO2 65, HCO3 17.8, O2sat 94% on non-rebreather of FiO2 100%. CXR:Persistent diffuse hazy densities in the lungs probably from COVID-19 pneumonia. Underlying COPD and chronic interstitial lung disease are not excluded given the bronchiectasis seen on prior CTA. Pt is currently on treatment protocol that includes: IVF NS@75ml/h, Remdesivir, Solumedrol 125mg q6h, scheduled Bronchodilators, Antibiotics: Levaquin, Ivermectin, Lovenox 30mg BID, IV ativan 0.5mg BID, IV morphine 2mg prn, immune supporting supplements, supplemental O2, I/S, Respiratory therapy consult, Pneumonia protocol. Still no available heated high flow oxygen available at this time due to shortage of supply from COVID-19 pneumonia. Wean/titrate oxygen as tolerated. Continue to monitor closely and follow up labs/imaging. Time spent on clinical assessment, reviewing labs and imaging, decision making, and documentation greater than 45 minutes. Past Medical Family Social History Past Med/Fam/Surg Hx: No changes since H&P Allergies: Allergies Penicillins Allergy (Verified 12/20/20 14:17) Review of Systems ROS: No change since H&P Vital Signs and I&O's Vital Signs: Temperature 98.8 F Pulse Rate [Left Brachial] 81 Pulse Rate 118 Respiratory Rate 22 Blood Pressure [Left Arm] 130/72 Blood Pressure 150/77 O2 Sat by Pulse Oximetry 94 Intake and Output: Intake & Output 12/19/20 12/20/20 12/21/20 12/22/20 23:59 23:59 23:59 23:59 Intake Total 1337 / 1337 2200 / 2200 1270 / 1270 Output Total 1050 / 1050 800 / 800 875 / 875 Balance 287 / 287 1400 / 1400 395 / 395 Physical Exam Oriented: Other (Alert, answers yes or no with significant fatigue) Eyes: Normal Ear: Normal Nose: Normal Throat: Normal Respiratory: Diminished and Rales Cardiovascular: Normal : Normal Auscultation: Bowel Sounds: Normal Tenderness: Normal Skin: Normal Musculoskeletal: Normal Psychiatric: Normal Mood Description: Calm and Appropriate Affect: Normal Speech Pattern: Unclear Laboratory and Diagnostics Result Diagrams: 12/22/20 05:53 12/22/20 05:53 Labs: Laboratory WBC 4.9 X10^3/uL (3.6-10.0) 12/22/20 05:53 RBC 4.61 X10^6/uL (4.7-6.0) L 12/22/20 05:53 Hgb 14.2 g/dL (13.5-18.0) 12/22/20 05:53 Hct 41.9 % (42.0-54.0) L 12/22/20 05:53 MCV 90.8 fL (80.0-100.0) 12/22/20 05:53 MCH 30.9 pg (27.0-34.0) 12/22/20 05:53 MCHC 34.0 g/dL (33.0-35.0) 12/22/20 05:53 RDW 13.7 % (11.6-16.5) 12/22/20 05:53 Plt Count 188 X10^3/uL (150.0-450.0) 12/22/20 05:53 Plt Count Comment Adequate (ADEQUATE) 12/22/20 05:53 MPV 9.3 fL (7.4-11.0) 12/22/20 05:53 Neut % (Auto) 93.6 % (42.0-75.0) H 12/22/20 05:53 Lymph % (Auto) 2.5 % (21.0-51.0) L 12/22/20 05:53 [place] % (Auto) 3.8 % (0.0-13.0) 12/22/20 05:53 Eos % (Auto) 0.0 % (0.9-2.9) L 12/22/20 05:53 Baso % (Auto) 0.1 % (0.2-1.0) L 12/22/20 05:53 Neut # (Auto) 4.6 x10^3/uL (2.2-4.8) 12/22/20 05:53 Lymph # (Auto) 0.1 X10^3/uL (1.3-2.9) L 12/22/20 05:53 [place] # (Auto) 0.2 x10^3/uL (0.3-0.8) L 12/22/20 05:53 Eos # (Auto) 0.0 x10^3/uL (0.0-0.2) 12/22/20 05:53 Baso # (Auto) 0.0 X10^3/uL (0.0-0.1) 12/22/20 05:53 Absolute Nucleated RBC 0.3 /100WBC 12/22/20 05:53 Total Counted 100 12/22/20 05:53 Neutrophils % (Manual) 91 % (39-76) H 12/22/20 05:53 Band Neutrophils % 9 % (0-10) 12/21/20 08:28 Lymphocytes % (Manual) 8 % (13-43) L 12/22/20 05:53 Monocytes % (Manual) 1 % (4-9) L 12/22/20 05:53 Plt Morphology Comment Normal (NORMAL) 12/22/20 05:53 RBC Morphology Normal (NORMAL) 12/22/20 05:53 D-Dimer 3.60 ug/ml (0.0-0.57) H* 12/20/20 08:40 Sample Site Lr 12/22/20 10:10 ABG pH 7.470 (7.35-7.45) H 12/22/20 10:10 ABG pCO2 35.0 mmHg (35.0-45.0) 12/22/20 10:10 ABG pO2 65.0 mmHg (80.0-100.0) L 12/22/20 10:10 ABG HCO3 25.5 mmol/L (22-26) 12/22/20 10:10 ABG O2 Saturation 94.0 % (90-100) 12/22/20 10:10 ABG Base Excess 2.0 mmol/L (-2.0-2.0) 12/22/20 10:10 Andrew Test Pos 12/22/20 10:10 A-a Gradient 604.0 mmHg 12/22/20 10:10 FiO2 100.0 12/22/20 10:10 Blood Gas Comments Pt nancy well cdn 12/22/20 10:10 Sodium 149 mmol/L (136-145) H 12/22/20 05:53 Corrected Sodium 150 mmol/L (136-145) H 12/22/20 05:53 Potassium 3.4 mmol/L (3.5-5.1) L 12/22/20 05:53 Chloride 113 mmol/L (98-107) H 12/22/20 05:53 Carbon Dioxide 23.7 mmol/L (21-32) 12/22/20 05:53 BUN 17 mg/dL (7-18) 12/22/20 05:53 Creatinine 0.98 mg/dL (0.70-1.30) 12/22/20 05:53 Est GFR (MDRD) Af Amer > 60 (>60) 12/22/20 05:53 Est GFR (MDRD) Non-Af > 60 (>60) 12/22/20 05:53 Glucose 141 mg/dL (65-99) H 12/22/20 05:53 POC Glucose (mg/dL) 137 mg/dL (65-99) H 12/22/20 05:42 Calcium 8.2 mg/dL (8.5-10.1) L 12/22/20 05:53 Corrected Calcium 9.8 mg/dL (8.5-10.1) 12/22/20 05:53 Magnesium 3.7 mg/dL (1.7-2.9) H 12/22/20 05:53 Total Bilirubin 1.10 mg/dL (0.2-1.0) H 12/22/20 05:53 AST 46 Units/L (15-37) H 12/22/20 05:53 ALT 26 Units/L (12-78) 12/22/20 05:53 Alkaline Phosphatase 48 Units/L (46-116) 12/22/20 05:53 Creatine Kinase 177 Units/L (39-308) 12/20/20 14:27 CK-MB (CK-2) < 1.0 ng/mL (0-4.0) 12/20/20 14:27 CK/CKMB % Calc 0.6 % (<4) 12/20/20 14:27 Troponin I < 0.02 ng/mL (0-1.5) 12/20/20 14:27 C-Reactive Protein 222.60 mg/L (0-3.0) H 12/22/20 05:53 Total Protein 6.8 g/dL (6.4-8.2) 12/22/20 05:53 Albumin 2.0 g/dL (3.4-5.0) L 12/22/20 05:53 Globulin 4.8 g/dL (2.5-4.5) H 12/22/20 05:53 Albumin/Globulin Ratio 0.4 Ratio (1.1-2.1) L 12/22/20 05:53 Lipase 185 Units/L (73-393) 12/19/20 19:01 Specimen Type Clean catch urine 12/20/20 02:17 Urine Color Dark yellow (YELLOW) 12/20/20 02:17 Urine Appearance Hazy (CLEAR) 12/20/20 02:17 Urine pH 6.0 (5.0 - 8.0) 12/20/20 02:17 Ur Specific [place] 1.015 (1.000-1.030) 12/20/20 02:17 Urine Protein 3+ (NEGATIVE) 12/20/20 02:17 Urine Glucose (UA) Negative (NEGATIVE) 12/20/20 02:17 Urine Ketones 2+ (NEGATIVE) 12/20/20 02:17 Urine Occult Blood 3+ (NEGATIVE) 12/20/20 02:17 Urine Nitrite Negative (NEGATIVE) 12/20/20 02:17 Urine Bilirubin 1+ (NEGATIVE) 12/20/20 02:17 Urine Urobilinogen 3+ (NORMAL) 12/20/20 02:17 Ur Leukocyte Esterase Negative (NEGATIVE) 12/20/20 02:17 Urine RBC 3-5 /HPF (0-3) A 12/20/20 02:17 Urine WBC 3-5 /HPF (0-5) 12/20/20 02:17 Ur Squamous Epith Cells Rare /HPF (NEGATIVE) 12/20/20 02:17 Urine Bacteria Trace /HPF (NEGATIVE) 12/20/20 02:17 Urine Mucus Few /HPF (NEGATIVE) 12/20/20 02:17 Urine Sperm Numerous /HPF (NEGATIVE) 12/20/20 02:17 Ur Culture Indicated? No/not indicated 12/20/20 02:17 SARS-CoV-2 (PCR) Positive (NEGATIVE) A 12/19/20 19:32 Influenza Type A (PCR) Negative (NEGATIVE) 12/19/20 19:32 Influenza Type B (PCR) Negative (NEGATIVE) 12/19/20 19:32 RSV (PCR) Negative (NEGATIVE) 12/19/20 19:32 Plan (1) Pneumonia due to COVID-19 virus: Status: Acute Plan: pneumonia protocol (2) Alcohol use disorder: Status: Acute
[2020-12-22] MEDS: LEVAQUIN PREMIX IV 500 MG 500 MG/100 ML BAG IV SCH (11:17)
[2020-12-22] MEDS: NS 1000 ML 1,000 ML with MAGNESIUM SULFATE 50% INJ VIAL 1 G, MVI INJ (ADULT) 10 ML IV SCH ×3 (12:07)
--- NOTE | 2020-12-22 13:20 | PCM.PROG ---
Progress Note Progress Note for Day of Date of Exam: 12/22/20 Subjective Subjective: Pt is a 80 year old male past medical history alcohol use disorder admitted for Covid-19 pneumonia with hypoxia. Overnight, nursing reports patient agitated and frequently removes non-rebreather. On rounds patient had just removed non-rebreather, O2 sats 70s, replaced non-rebreather and oxygen saturations back up to 90s. ABG was obtained that revealed: pH 7.47, pCO2 35, pO2 65, HCO3 25, O2sat 94% on non-rebreather of FiO2 100%. He is currently utilizing non-rebreather supplemental oxygen with FiO2 100%. Labs/imaging: Wbc 4.9, Hgb 14.2, Plt 188, Na 149, K 3.4, Creatinine 0.98, Glucose 141, CRP 222, CXR: bronchopneumonia slightly progressed. Pt is currently on treatment protocol that includes: IVF NS@75ml/h, Remdesivir, Solumedrol 125mg q6h, scheduled Bronchodilators, Antibiotics: Levaquin, Ivermectin, Lovenox 30mg BID, IV ativan 0.5mg BID, IV morphine 2mg prn, immune supporting supplements, supplemental O2, I/S, Respiratory therapy consult, Pneumonia protocol. Heated high flow oxygen now available, will convert from non-rebreather. Wean/titrate oxygen as tolerated. Continue to monitor closely and follow up labs/imaging. Time spent on clinical assessment, reviewing labs and imaging, decision making, and documentation greater than 45 minutes. Past Medical Family Social History Past Med/Fam/Surg Hx: No changes since H&P Allergies: Allergies Penicillins Allergy (Verified 12/20/20 14:17) Review of Systems ROS: No change since H&P Vital Signs and I&O's Vital Signs: Temperature 97.3 F Pulse Rate [Left Brachial] 81 Pulse Rate 88 Respiratory Rate 24 Blood Pressure [Left Arm] 130/72 Blood Pressure 133/76 O2 Sat by Pulse Oximetry 92 Intake and Output: Intake & Output 12/19/20 12/20/20 12/21/20 12/22/20 23:59 23:59 23:59 23:59 Intake Total 1337 / 1337 2200 / 2200 1270 / 1270 Output Total 1050 / 1050 800 / 800 875 / 875 Balance 287 / 287 1400 / 1400 395 / 395 Physical Exam Oriented: Other (Alert, answers yes or no with significant fatigue) Eyes: Normal Ear: Normal Nose: Normal Throat: Normal Respiratory: Diminished and Rales Cardiovascular: Normal : Normal Auscultation: Bowel Sounds: Normal Tenderness: Normal Skin: Normal Musculoskeletal: Normal Psychiatric: Normal Mood Description: Calm and Appropriate Affect: Normal Speech Pattern: Unclear Laboratory and Diagnostics Result Diagrams: 12/22/20 05:53 12/22/20 05:53 Labs: Laboratory WBC 4.9 X10^3/uL (3.6-10.0) 12/22/20 05:53 RBC 4.61 X10^6/uL (4.7-6.0) L 12/22/20 05:53 Hgb 14.2 g/dL (13.5-18.0) 12/22/20 05:53 Hct 41.9 % (42.0-54.0) L 12/22/20 05:53 MCV 90.8 fL (80.0-100.0) 12/22/20 05:53 MCH 30.9 pg (27.0-34.0) 12/22/20 05:53 MCHC 34.0 g/dL (33.0-35.0) 12/22/20 05:53 RDW 13.7 % (11.6-16.5) 12/22/20 05:53 Plt Count 188 X10^3/uL (150.0-450.0) 12/22/20 05:53 Plt Count Comment Adequate (ADEQUATE) 12/22/20 05:53 MPV 9.3 fL (7.4-11.0) 12/22/20 05:53 Neut % (Auto) 93.6 % (42.0-75.0) H 12/22/20 05:53 Lymph % (Auto) 2.5 % (21.0-51.0) L 12/22/20 05:53 [place] % (Auto) 3.8 % (0.0-13.0) 12/22/20 05:53 Eos % (Auto) 0.0 % (0.9-2.9) L 12/22/20 05:53 Baso % (Auto) 0.1 % (0.2-1.0) L 12/22/20 05:53 Neut # (Auto) 4.6 x10^3/uL (2.2-4.8) 12/22/20 05:53 Lymph # (Auto) 0.1 X10^3/uL (1.3-2.9) L 12/22/20 05:53 [place] # (Auto) 0.2 x10^3/uL (0.3-0.8) L 12/22/20 05:53 Eos # (Auto) 0.0 x10^3/uL (0.0-0.2) 12/22/20 05:53 Baso # (Auto) 0.0 X10^3/uL (0.0-0.1) 12/22/20 05:53 Absolute Nucleated RBC 0.3 /100WBC 12/22/20 05:53 Total Counted 100 12/22/20 05:53 Neutrophils % (Manual) 91 % (39-76) H 12/22/20 05:53 Band Neutrophils % 9 % (0-10) 12/21/20 08:28 Lymphocytes % (Manual) 8 % (13-43) L 12/22/20 05:53 Monocytes % (Manual) 1 % (4-9) L 12/22/20 05:53 Plt Morphology Comment Normal (NORMAL) 12/22/20 05:53 RBC Morphology Normal (NORMAL) 12/22/20 05:53 D-Dimer 3.60 ug/ml (0.0-0.57) H* 12/20/20 08:40 Sample Site Lr 12/22/20 10:10 ABG pH 7.470 (7.35-7.45) H 12/22/20 10:10 ABG pCO2 35.0 mmHg (35.0-45.0) 12/22/20 10:10 ABG pO2 65.0 mmHg (80.0-100.0) L 12/22/20 10:10 ABG HCO3 25.5 mmol/L (22-26) 12/22/20 10:10 ABG O2 Saturation 94.0 % (90-100) 12/22/20 10:10 ABG Base Excess 2.0 mmol/L (-2.0-2.0) 12/22/20 10:10 Andrew Test Pos 12/22/20 10:10 A-a Gradient 604.0 mmHg 12/22/20 10:10 FiO2 100.0 12/22/20 10:10 Blood Gas Comments Pt nancy well cdn 12/22/20 10:10 Sodium 149 mmol/L (136-145) H 12/22/20 05:53 Corrected Sodium 150 mmol/L (136-145) H 12/22/20 05:53 Potassium 3.4 mmol/L (3.5-5.1) L 12/22/20 05:53 Chloride 113 mmol/L (98-107) H 12/22/20 05:53 Carbon Dioxide 23.7 mmol/L (21-32) 12/22/20 05:53 BUN 17 mg/dL (7-18) 12/22/20 05:53 Creatinine 0.98 mg/dL (0.70-1.30) 12/22/20 05:53 Est GFR (MDRD) Af Amer > 60 (>60) 12/22/20 05:53 Est GFR (MDRD) Non-Af > 60 (>60) 12/22/20 05:53 Glucose 141 mg/dL (65-99) H 12/22/20 05:53 POC Glucose (mg/dL) 137 mg/dL (65-99) H 12/22/20 05:42 Calcium 8.2 mg/dL (8.5-10.1) L 12/22/20 05:53 Corrected Calcium 9.8 mg/dL (8.5-10.1) 12/22/20 05:53 Magnesium 3.7 mg/dL (1.7-2.9) H 12/22/20 05:53 Total Bilirubin 1.10 mg/dL (0.2-1.0) H 12/22/20 05:53 AST 46 Units/L (15-37) H 12/22/20 05:53 ALT 26 Units/L (12-78) 12/22/20 05:53 Alkaline Phosphatase 48 Units/L (46-116) 12/22/20 05:53 Creatine Kinase 177 Units/L (39-308) 12/20/20 14:27 CK-MB (CK-2) < 1.0 ng/mL (0-4.0) 12/20/20 14:27 CK/CKMB % Calc 0.6 % (<4) 12/20/20 14:27 Troponin I < 0.02 ng/mL (0-1.5) 12/20/20 14:27 C-Reactive Protein 222.60 mg/L (0-3.0) H 12/22/20 05:53 Total Protein 6.8 g/dL (6.4-8.2) 12/22/20 05:53 Albumin 2.0 g/dL (3.4-5.0) L 12/22/20 05:53 Globulin 4.8 g/dL (2.5-4.5) H 12/22/20 05:53 Albumin/Globulin Ratio 0.4 Ratio (1.1-2.1) L 12/22/20 05:53 Lipase 185 Units/L (73-393) 12/19/20 19:01 Specimen Type Clean catch urine 12/20/20 02:17 Urine Color Dark yellow (YELLOW) 12/20/20 02:17 Urine Appearance Hazy (CLEAR) 12/20/20 02:17 Urine pH 6.0 (5.0 - 8.0) 12/20/20 02:17 Ur Specific [place] 1.015 (1.000-1.030) 12/20/20 02:17 Urine Protein 3+ (NEGATIVE) 12/20/20 02:17 Urine Glucose (UA) Negative (NEGATIVE) 12/20/20 02:17 Urine Ketones 2+ (NEGATIVE) 12/20/20 02:17 Urine Occult Blood 3+ (NEGATIVE) 12/20/20 02:17 Urine Nitrite Negative (NEGATIVE) 12/20/20 02:17 Urine Bilirubin 1+ (NEGATIVE) 12/20/20 02:17 Urine Urobilinogen 3+ (NORMAL) 12/20/20 02:17 Ur Leukocyte Esterase Negative (NEGATIVE) 12/20/20 02:17 Urine RBC 3-5 /HPF (0-3) A 12/20/20 02:17 Urine WBC 3-5 /HPF (0-5) 12/20/20 02:17 Ur Squamous Epith Cells Rare /HPF (NEGATIVE) 12/20/20 02:17 Urine Bacteria Trace /HPF (NEGATIVE) 12/20/20 02:17 Urine Mucus Few /HPF (NEGATIVE) 12/20/20 02:17 Urine Sperm Numerous /HPF (NEGATIVE) 12/20/20 02:17 Ur Culture Indicated? No/not indicated 12/20/20 02:17 SARS-CoV-2 (PCR) Positive (NEGATIVE) A 12/19/20 19:32 Influenza Type A (PCR) Negative (NEGATIVE) 12/19/20 19:32 Influenza Type B (PCR) Negative (NEGATIVE) 12/19/20 19:32 RSV (PCR) Negative (NEGATIVE) 12/19/20 19:32 Plan (1) Pneumonia due to COVID-19 virus: Status: Acute Plan: -Pneumonia protocol (2) Alcohol use disorder: Status: Acute
[2020-12-22] MEDS: NS 1000 ML 1,000 ML IV SCH (13:44)
[2020-12-22] MEDS: MORPHINE SULFATE INJ 2 MG INJ IVP PRN ×2 (15:57→22:19)
[2020-12-23] MEDS: NS 1000 ML 1,000 ML with MAGNESIUM SULFATE 50% INJ VIAL 1 G, MVI INJ (ADULT) 10 ML IV SCH ×9 (00:05→19:05)
[2020-12-23] MEDS: ASCORBIC ACID INJ MULTI-DOSE VIAL 1,500 MG in NS 100 ML IV 100 ML IV SCH ×4 (02:17→20:46)
[2020-12-23] MEDS: SOLU-Medrol 125 MG VIAL IVP SCH ×4 (02:17→20:47)
[2020-12-23] MEDS: MORPHINE SULFATE INJ 2 MG INJ IVP PRN ×3 (04:41→13:45)
[2020-12-23] MEDS: NS 1000 ML 1,000 ML IV SCH (06:11)
[2020-12-23 06:44] LABS: BASOPHILS % (AUTO) 0 % (0.2-1.0); HEMATOCRIT 42.2 % (42.0-54.0); HEMOGLOBIN 14.2 g/dL (13.5-18.0); LYMPHOCYTES # (AUTO) 0.1 X10^3/uL (1.3-2.9); LYMPHOCYTES % (AUTO) 2.9 % (21.0-51.0); MEAN CORPUSCULAR HEMOGLOBIN 30.4 pg (27.0-34.0); MEAN CORPUSCULAR HGB CONC 33.6 g/dL (33.0-35.0); MEAN CORPUSCULAR VOLUME 90.5 fL (80.0-100.0); MEAN PLATELET VOLUME 9.4 fL (7.4-11.0); MONOCYTES # (AUTO) 0.2 x10^3/uL (0.3-0.8); MONOCYTES % (AUTO) 3.9 % (0.0-13.0); NEUTROPHILS # (AUTO) 4.9 x10^3/uL (2.2-4.8); NEUTROPHILS % (AUTO) 93.2 % (42.0-75.0); PLATELET COUNT 195 X10^3/uL (150.0-450.0); RED BLOOD COUNT 4.67 X10^6/uL (4.7-6.0); RED CELL DISTRIBUTION WIDTH 13.7 % (11.6-16.5); WHITE BLOOD COUNT 5.2 X10^3/uL (3.6-10.0)
[2020-12-23 08:05] LABS: ALANINE AMINOTRANSFERASE 28 Units/L (12-78); ALBUMIN 1.9 g/dL (3.4-5.0); ALKALINE PHOSPHATASE 46 Units/L (46-116); ASPARTATE AMINO TRANSFERASE 40 Units/L (15-37); BLOOD UREA NITROGEN 15 mg/dL (7-18); CALCIUM 8.3 mg/dL (8.5-10.1); CARBON DIOXIDE 24.3 mmol/L (21-32); COR NA(FOR HYPERGLY) 153 mmol/L (136-145); TOTAL PROTEIN 6.6 g/dL (6.4-8.2); eGFR NON BLACK RACES > 60 (>60)
--- NOTE | 2020-12-23 08:16 | RAD ---
HISTORYCOVID-19 pneumoniaSTUDYPortable AP [id number] size remains normal. There is no change in extent or distribution of diffuse bilateral airspace disease. No new areas of consolidation are identified. There is no evidence for pneumothorax.IMPRESSIONNo significant change in appearance of bilateral pneumonia.Electronically signed by: DELANO MARTINEZ (Dec 23, 2020 08:14:04)
[2020-12-23] MEDS: LOVENOX INJ 30 MG SYR SC SCH ×2 (08:24→20:47)
[2020-12-23] MEDS ORDERED: BROVANA ONE (08:35)
[2020-12-23] MEDS ORDERED: PULMICORT NEB TX 0.5 MG NEB ONE (08:35)
[2020-12-23 08:40] LABS: SODIUM 152 mmol/L (136-145)
[2020-12-23 08:41] LABS: CHLORIDE 118 mmol/L (98-107)
[2020-12-23] MEDS ORDERED: ATIVAN INJ 2 MG VIAL ONE (09:08)
[2020-12-23] MEDS: ZINC SULFATE PO SCH ×2 (09:18→22:38)
[2020-12-23] MEDS: IVERMECTIN PO SCH (09:19)
[2020-12-23] MEDS: ATIVAN INJ 2 MG VIAL IVP SCH (09:19)
[2020-12-23] MEDS: PEPCID TAB 40 MG PO SCH ×2 (09:19→22:38)
[2020-12-23] MEDS: REMDESIVIR 100 MG in NS 250 ML IV 250 ML IV SCH (09:21)
[2020-12-23] MEDS: PULMICORT NEB TX 0.5 MG NEB SCH ×2 (09:22→21:45)
[2020-12-23] MEDS: BROVANA IN SCH ×2 (09:22→21:45)
[2020-12-23] MEDS: VITAMIN A PO SCH (09:24)
[2020-12-23] MEDS: VITAMIN D3 125 mcg (5,000 UNITS) PO SCH (09:24)
[2020-12-23 09:40] LABS: BAND NEUTROPHILS % 1 % (0-10); PLATELET MORPHOLOGY COMMENT NORMAL (NORMAL)
[2020-12-23] MEDS ORDERED: NS 1/2 + KCL 20 MEQ/L 1,000 ML IV SCH (10:00)
[2020-12-23] MEDS: LEVAQUIN PREMIX IV 500 MG 500 MG/100 ML BAG IV SCH (10:54)
[2020-12-23] MEDS: APRESOLINE INJ 20 MG VIAL IVP PRN (16:05)
--- NOTE | 2020-12-23 17:46 | PCM.PROG ---
Progress Note Progress Note for Day of Date of Exam: 12/23/20 Subjective Subjective: Pt is a 80 year old male past medical history alcohol use disorder admitted for Covid-19 pneumonia with hypoxia. Patient appears lethargic but responds to auditory and physical stimuli. Per nursing he sleeps most of the day but will have moments of clarity and will remove his oxygen and try to get out of bed. He is currently utilizing heated high flow oxygen with FiO2 51%. Labs/imaging: Wbc 5.2, Hgb 14.2, Plt 195, Na 152, K 3.0, Creatinine 0.80, Glucose 154, CRP 222>234, CXR: No significant change in appearance of bilateral pneumonia. Pt is currently on treatment protocol that includes: IVF NS@75ml/h, Remdesivir, Solumedrol 125mg q6h, scheduled Bronchodilators, Antibiotics: Levaquin, Ivermectin, Lovenox 30mg BID, IV ativan 0.5mg BID, IV morphine 2mg prn, immune supporting supplements, supplemental O2, I/S, Respiratory therapy consult, Pneumonia protocol. Will change IVF to D5W with 20 mEq KCL@80ml/h for hypernatremia and electrolyte abnormalities. Due to mental status and inability to follow commands, will discontinue IV ativan and IV morphine at this time, and monitor cognitive status. Replete potassium per protocol. Wean/titrate oxygen as tolerated. Continue to monitor closely and follow up labs/imaging. Time spent on clinical assessment, reviewing labs and imaging, decision making, and documentation greater than 45 minutes. Past Medical Family Social History Past Med/Fam/Surg Hx: No changes since H&P Allergies: Allergies Penicillins Allergy (Verified 12/20/20 14:17) Review of Systems ROS: No change since H&P Vital Signs and I&O's Vital Signs: Temperature 97 F Pulse Rate [Left Brachial] 81 Pulse Rate 103 Respiratory Rate 18 Blood Pressure [Left Arm] 130/72 Blood Pressure 168/98 O2 Sat by Pulse Oximetry 91 Intake and Output: Intake & Output 12/20/20 12/21/20 12/22/20 12/23/20 23:59 23:59 23:59 23:59 Intake Total 1337 / 1337 2200 / 2200 3108 / 3108 1880 / 1880 Output Total 1050 / 1050 800 / 800 1225 / 1225 1650 / 1650 Balance 287 / 287 1400 / 1400 1883 / 1883 230 / 230 Physical Exam Oriented: Other (Alert, answers yes or no with significant fatigue) Eyes: Normal Ear: Normal Nose: Normal Throat: Normal Respiratory: Diminished and Rales Cardiovascular: Normal : Normal Auscultation: Bowel Sounds: Normal Tenderness: Normal Skin: Normal Musculoskeletal: Normal Psychiatric: Normal Mood Description: Calm and Appropriate Affect: Normal Speech Pattern: Unclear Laboratory and Diagnostics Result Diagrams: 12/23/20 05:55 12/23/20 05:55 Labs: Laboratory WBC 5.2 X10^3/uL (3.6-10.0) 12/23/20 05:55 RBC 4.67 X10^6/uL (4.7-6.0) L 12/23/20 05:55 Hgb 14.2 g/dL (13.5-18.0) 12/23/20 05:55 Hct 42.2 % (42.0-54.0) 12/23/20 05:55 MCV 90.5 fL (80.0-100.0) 12/23/20 05:55 MCH 30.4 pg (27.0-34.0) 12/23/20 05:55 MCHC 33.6 g/dL (33.0-35.0) 12/23/20 05:55 RDW 13.7 % (11.6-16.5) 12/23/20 05:55 Plt Count 195 X10^3/uL (150.0-450.0) 12/23/20 05:55 Plt Count Comment Adequate (ADEQUATE) 12/23/20 05:55 MPV 9.4 fL (7.4-11.0) 12/23/20 05:55 Neut % (Auto) 93.2 % (42.0-75.0) H 12/23/20 05:55 Lymph % (Auto) 2.9 % (21.0-51.0) L 12/23/20 05:55 [place] % (Auto) 3.9 % (0.0-13.0) 12/23/20 05:55 Eos % (Auto) 0.0 % (0.9-2.9) L 12/23/20 05:55 Baso % (Auto) 0 % (0.2-1.0) L 12/23/20 05:55 Neut # (Auto) 4.9 x10^3/uL (2.2-4.8) H 12/23/20 05:55 Lymph # (Auto) 0.1 X10^3/uL (1.3-2.9) L 12/23/20 05:55 [place] # (Auto) 0.2 x10^3/uL (0.3-0.8) L 12/23/20 05:55 Eos # (Auto) 0.0 x10^3/uL (0.0-0.2) 12/23/20 05:55 Baso # (Auto) 0.0 X10^3/uL (0.0-0.1) 12/23/20 05:55 Absolute Nucleated RBC 0.0 /100WBC 12/23/20 05:55 Total Counted 100 12/23/20 05:55 Neutrophils % (Manual) 92 % (39-76) H 12/23/20 05:55 Band Neutrophils % 1 % (0-10) 12/23/20 05:55 Lymphocytes % (Manual) 4 % (13-43) L 12/23/20 05:55 Monocytes % (Manual) 3 % (4-9) L 12/23/20 05:55 Plt Morphology Comment Normal (NORMAL) 12/23/20 05:55 RBC Morphology Normal (NORMAL) 12/23/20 05:55 D-Dimer 3.60 ug/ml (0.0-0.57) H* 12/20/20 08:40 Sample Site Lr 12/22/20 10:10 ABG pH 7.470 (7.35-7.45) H 12/22/20 10:10 ABG pCO2 35.0 mmHg (35.0-45.0) 12/22/20 10:10 ABG pO2 65.0 mmHg (80.0-100.0) L 12/22/20 10:10 ABG HCO3 25.5 mmol/L (22-26) 12/22/20 10:10 ABG O2 Saturation 94.0 % (90-100) 12/22/20 10:10 ABG Base Excess 2.0 mmol/L (-2.0-2.0) 12/22/20 10:10 Andrew Test Pos 12/22/20 10:10 A-a Gradient 604.0 mmHg 12/22/20 10:10 FiO2 100.0 12/22/20 10:10 Blood Gas Comments Pt nancy well cdn 12/22/20 10:10 Sodium 152 mmol/L (136-145) H* 12/23/20 05:55 Corrected Sodium 153 mmol/L (136-145) H 12/23/20 05:55 Potassium 3.0 mmol/L (3.5-5.1) L* 12/23/20 05:55 Chloride 118 mmol/L (98-107) H* 12/23/20 05:55 Carbon Dioxide 24.3 mmol/L (21-32) 12/23/20 05:55 BUN 15 mg/dL (7-18) 12/23/20 05:55 Creatinine 0.80 mg/dL (0.70-1.30) 12/23/20 05:55 Est GFR (MDRD) Af Amer > 60 (>60) 12/23/20 05:55 Est GFR (MDRD) Non-Af > 60 (>60) 12/23/20 05:55 Glucose 154 mg/dL (65-99) H 12/23/20 05:55 POC Glucose (mg/dL) 137 mg/dL (65-99) H 12/22/20 05:42 Calcium 8.3 mg/dL (8.5-10.1) L 12/23/20 05:55 Corrected Calcium 10.0 mg/dL (8.5-10.1) 12/23/20 05:55 Magnesium 3.7 mg/dL (1.7-2.9) H 12/22/20 05:53 Total Bilirubin 0.70 mg/dL (0.2-1.0) 12/23/20 05:55 AST 40 Units/L (15-37) H 12/23/20 05:55 ALT 28 Units/L (12-78) 12/23/20 05:55 Alkaline Phosphatase 46 Units/L (46-116) 12/23/20 05:55 Creatine Kinase 177 Units/L (39-308) 12/20/20 14:27 CK-MB (CK-2) < 1.0 ng/mL (0-4.0) 12/20/20 14:27 CK/CKMB % Calc 0.6 % (<4) 12/20/20 14:27 Troponin I < 0.02 ng/mL (0-1.5) 12/20/20 14:27 C-Reactive Protein 234.20 mg/L (0-3.0) H 12/23/20 05:55 Total Protein 6.6 g/dL (6.4-8.2) 12/23/20 05:55 Albumin 1.9 g/dL (3.4-5.0) L 12/23/20 05:55 Globulin 4.7 g/dL (2.5-4.5) H 12/23/20 05:55 Albumin/Globulin Ratio 0.4 Ratio (1.1-2.1) L 12/23/20 05:55 Lipase 185 Units/L (73-393) 12/19/20 19:01 Specimen Type Clean catch urine 12/20/20 02:17 Urine Color Dark yellow (YELLOW) 12/20/20 02:17 Urine Appearance Hazy (CLEAR) 12/20/20 02:17 Urine pH 6.0 (5.0 - 8.0) 12/20/20 02:17 Ur Specific [place] 1.015 (1.000-1.030) 12/20/20 02:17 Urine Protein 3+ (NEGATIVE) 12/20/20 02:17 Urine Glucose (UA) Negative (NEGATIVE) 12/20/20 02:17 Urine Ketones 2+ (NEGATIVE) 12/20/20 02:17 Urine Occult Blood 3+ (NEGATIVE) 12/20/20 02:17 Urine Nitrite Negative (NEGATIVE) 12/20/20 02:17 Urine Bilirubin 1+ (NEGATIVE) 12/20/20 02:17 Urine Urobilinogen 3+ (NORMAL) 12/20/20 02:17 Ur Leukocyte Esterase Negative (NEGATIVE) 12/20/20 02:17 Urine RBC 3-5 /HPF (0-3) A 12/20/20 02:17 Urine WBC 3-5 /HPF (0-5) 12/20/20 02:17 Ur Squamous Epith Cells Rare /HPF (NEGATIVE) 12/20/20 02:17 Urine Bacteria Trace /HPF (NEGATIVE) 12/20/20 02:17 Urine Mucus Few /HPF (NEGATIVE) 12/20/20 02:17 Urine Sperm Numerous /HPF (NEGATIVE) 12/20/20 02:17 Ur Culture Indicated? No/not indicated 12/20/20 02:17 SARS-CoV-2 (PCR) Positive (NEGATIVE) A 12/19/20 19:32 Influenza Type A (PCR) Negative (NEGATIVE) 12/19/20 19:32 Influenza Type B (PCR) Negative (NEGATIVE) 12/19/20 19:32 RSV (PCR) Negative (NEGATIVE) 12/19/20 19:32
[2020-12-23] MEDS ORDERED: MORPHINE SULFATE INJ 2 MG INJ IVP ONE (17:57)
[2020-12-23] MEDS: LOPRESSOR INJ 5 MG AMP IVP PRN ×2 (18:56→23:42)
[2020-12-23] MEDS: D5W + KCL 20 MEQ/L 1,000 ML IV SCH (19:05)
[2020-12-24] MEDS ORDERED: CATAPRES TAB 0.1 MG PO ONE (00:05)
[2020-12-24] MEDS ORDERED: LIBRIUM PO SCH (00:08)
[2020-12-24] MEDS: APRESOLINE INJ 20 MG VIAL IVP PRN ×2 (01:20→23:18)
[2020-12-24] MEDS: ASCORBIC ACID INJ MULTI-DOSE VIAL 1,500 MG in NS 100 ML IV 100 ML IV SCH ×5 (02:25→20:35)
[2020-12-24] MEDS: SOLU-Medrol 125 MG VIAL IVP SCH ×4 (02:25→20:34)
[2020-12-24] MEDS: LOPRESSOR INJ 5 MG AMP IVP PRN ×4 (03:59→20:51)
[2020-12-24] MEDS: D5W + KCL 20 MEQ/L 1,000 ML IV SCH (04:03)
[2020-12-24 06:41] LABS: BASOPHILS % (AUTO) 0.1 % (0.2-1.0); HEMATOCRIT 45.1 % (42.0-54.0); HEMOGLOBIN 15.5 g/dL (13.5-18.0); LYMPHOCYTES # (AUTO) 0.1 X10^3/uL (1.3-2.9); LYMPHOCYTES % (AUTO) 1.3 % (21.0-51.0); MEAN CORPUSCULAR HEMOGLOBIN 30.6 pg (27.0-34.0); MEAN CORPUSCULAR HGB CONC 34.4 g/dL (33.0-35.0); MEAN CORPUSCULAR VOLUME 88.9 fL (80.0-100.0); MONOCYTES # (AUTO) 0.3 x10^3/uL (0.3-0.8); MONOCYTES % (AUTO) 3.2 % (0.0-13.0); NEUTROPHILS # (AUTO) 9.6 x10^3/uL (2.2-4.8); NEUTROPHILS % (AUTO) 95.4 % (42.0-75.0); PLATELET COUNT 217 X10^3/uL (150.0-450.0); RED BLOOD COUNT 5.07 X10^6/uL (4.7-6.0); RED CELL DISTRIBUTION WIDTH 13.9 % (11.6-16.5)
[2020-12-24 06:50] LABS: ALANINE AMINOTRANSFERASE 56 Units/L (12-78); ALKALINE PHOSPHATASE 57 Units/L (46-116); ASPARTATE AMINO TRANSFERASE 76 Units/L (15-37); BLOOD UREA NITROGEN 13 mg/dL (7-18); CALCIUM 8.3 mg/dL (8.5-10.1); CARBON DIOXIDE 25.3 mmol/L (21-32); CHLORIDE 111 mmol/L (98-107); COR CA(FOR HYPOALB) 9.9 mg/dL (8.5-10.1); COR NA(FOR HYPERGLY) 151 mmol/L (136-145); CREATININE 0.85 mg/dL (0.70-1.30); MAGNESIUM 2.9 mg/dL (1.7-2.9); SODIUM 149 mmol/L (136-145); TOTAL PROTEIN 7.2 g/dL (6.4-8.2); eGFR NON BLACK RACES > 60 (>60)
--- NOTE | 2020-12-24 06:58 | RAD ---
HISTORYCOVID-19 pneumoniaSTUDYPortable AP [id number]/2021FINDINGSHeart size remains normal. There is no change in extent or distribution of bilateral airspace disease. No new areas of consolidation identified. There is no evidence for developing pleural effusion or pneumothorax.IMPRESSIONNo definite or significant change in appearance of bilateral pneumonia.Electronically signed by: DELANO MARTINEZ (Dec 24, 2020 06:56:20)
[2020-12-24] MEDS: LOVENOX INJ 30 MG SYR SC SCH ×2 (08:02→20:33)
[2020-12-24] MEDS: REMDESIVIR 100 MG in NS 250 ML IV 250 ML IV SCH (08:02)
[2020-12-24] MEDS: LEVAQUIN PREMIX IV 500 MG 500 MG/100 ML BAG IV SCH (08:30)
[2020-12-24 08:34] LABS: PLATELET MORPHOLOGY COMMENT NORMAL (NORMAL)
[2020-12-24] MEDS: KCL IV SCH ×2 (09:44)
[2020-12-24] MEDS: POTASSIUM CHLORIDE IV SCH ×2 (09:44)
[2020-12-24] MEDS: D5W IV SCH ×2 (09:44)
[2020-12-24] MEDS ORDERED: PULMICORT NEB TX 0.5 MG NEB ONE ×2 (10:09→19:08)
[2020-12-24] MEDS ORDERED: BROVANA ONE ×2 (10:09→19:08)
[2020-12-24] MEDS: VITAMIN A PO SCH (10:23)
[2020-12-24] MEDS: PEPCID TAB 40 MG PO SCH ×2 (10:23→20:35)
[2020-12-24] MEDS: ZINC SULFATE PO SCH ×2 (10:23→20:34)
[2020-12-24] MEDS: VITAMIN D3 125 mcg (5,000 UNITS) PO SCH (10:23)
[2020-12-24] MEDS: BROVANA IN SCH ×2 (10:30→20:00)
[2020-12-24] MEDS: PULMICORT NEB TX 0.5 MG NEB SCH ×2 (10:30→20:00)
[2020-12-24 11:26] LABS: ABG BASE EXCESS 5.6 mmol/L (-2.0-2.0); ABG HCO3 26.5 mmol/L (22-26)
[2020-12-24] MEDS: HumuLIN R SC PRN (12:34)
[2020-12-24] MEDS: K-RIDER 10 MEQ/NS 100 ML 10 MEQ/100 ML BAG IV PRN ×2 (12:38→15:49)
[2020-12-24] MEDS ORDERED: POTASSIUM CHLORIDE LIQ 20 MEQ UDC PO PRN (13:43)
[2020-12-24] MEDS ORDERED: K-DUR TAB 20 MEQ PO PRN (13:43)
[2020-12-24] MEDS ORDERED: POTASSIUM CHL 40 MEQ/NS 0.45% 500 ML IV PRN (13:43)
[2020-12-24] MEDS ORDERED: KLOR-CON PO PRN (13:43)
[2020-12-24] MEDS ORDERED: MICRO K EXTEN CAP 10 MEQ PO PRN (13:43)
[2020-12-24] MEDS ORDERED: K-RIDER 10 MEQ/NS 100 ML 10 MEQ/100 ML BAG IV PRN (13:43)
[2020-12-24] MEDS ORDERED: POTASSIUM CHL 60 MEQ/NS 0.45% 500 ML IV PRN (13:43)
[2020-12-24] MEDS: THIAMINE HCL INJ IVP SCH (20:34)
[2020-12-25] MEDS: LOPRESSOR INJ 5 MG AMP IVP PRN ×5 (00:41→21:50)
[2020-12-25] MEDS: SOLU-Medrol 125 MG VIAL IVP SCH ×4 (02:10→20:50)
[2020-12-25] MEDS: ASCORBIC ACID INJ MULTI-DOSE VIAL 1,500 MG in NS 100 ML IV 100 ML IV SCH ×4 (02:10→20:49)
[2020-12-25] MEDS: D5W IV SCH ×4 (02:41→10:39)
[2020-12-25] MEDS: KCL IV SCH ×4 (02:41→10:39)
[2020-12-25] MEDS: POTASSIUM CHLORIDE IV SCH ×4 (02:41→10:39)
[2020-12-25 06:22] LABS: BASOPHILS % (AUTO) 0.2 % (0.2-1.0); HEMATOCRIT 46.1 % (42.0-54.0); HEMOGLOBIN 15.6 g/dL (13.5-18.0); LYMPHOCYTES # (AUTO) 0.1 X10^3/uL (1.3-2.9); LYMPHOCYTES % (AUTO) 1.3 % (21.0-51.0); MEAN CORPUSCULAR HEMOGLOBIN 30.1 pg (27.0-34.0); MEAN CORPUSCULAR HGB CONC 33.8 g/dL (33.0-35.0); MEAN CORPUSCULAR VOLUME 88.9 fL (80.0-100.0); MEAN PLATELET VOLUME 9.2 fL (7.4-11.0); MONOCYTES # (AUTO) 0.3 x10^3/uL (0.3-0.8); NEUTROPHILS # (AUTO) 11.1 x10^3/uL (2.2-4.8); NEUTROPHILS % (AUTO) 95.5 % (42.0-75.0); PLATELET COUNT 211 X10^3/uL (150.0-450.0); RED BLOOD COUNT 5.18 X10^6/uL (4.7-6.0); WHITE BLOOD COUNT 11.6 X10^3/uL (3.6-10.0)
[2020-12-25 06:30] LABS: ALANINE AMINOTRANSFERASE 50 Units/L (12-78); ALKALINE PHOSPHATASE 55 Units/L (46-116); ASPARTATE AMINO TRANSFERASE 45 Units/L (15-37); BLOOD UREA NITROGEN 16 mg/dL (7-18); CALCIUM 8.2 mg/dL (8.5-10.1); CARBON DIOXIDE 26.4 mmol/L (21-32); CHLORIDE 111 mmol/L (98-107); COR CA(FOR HYPOALB) 9.8 mg/dL (8.5-10.1); COR NA(FOR HYPERGLY) 148 mmol/L (136-145); CREATININE 0.85 mg/dL (0.70-1.30); MAGNESIUM 2.6 mg/dL (1.7-2.9); SODIUM 146 mmol/L (136-145); eGFR NON BLACK RACES > 60 (>60)
--- NOTE | 2020-12-25 07:27 | RAD ---
HISTORYCOVID-19 pneumoniaSTUDYPortable AP [id number]/2021FINDINGSContinued normal heart size. Bilateral pulmonary infiltrates are aga in noted with suggestion of slight improvement in the left upper lobe component. No new areas of cons olidation, pleural fluid accumulation or pneumothorax identified.IMPRESSIONPersistent pneumonia with slight apparent improvement in the left upper lobe.Electronically signed by: DELANO MARTINEZ (Dec 25, 2020 07:24:57)
[2020-12-25 07:28] LABS: BAND NEUTROPHILS % 3 % (0-10); PLATELET MORPHOLOGY COMMENT NORMAL (NORMAL)
[2020-12-25] MEDS: LOVENOX INJ 30 MG SYR SC SCH ×2 (08:30→20:50)
[2020-12-25] MEDS: VITAMIN A PO SCH (08:31)
[2020-12-25] MEDS: THIAMINE HCL INJ IVP SCH ×2 (08:31→20:50)
[2020-12-25] MEDS: PEPCID TAB 40 MG PO SCH ×2 (08:31→20:51)
[2020-12-25] MEDS: VITAMIN D3 125 mcg (5,000 UNITS) PO SCH (08:32)
[2020-12-25] MEDS: ZINC SULFATE PO SCH ×2 (08:32→20:49)
--- NOTE | 2020-12-25 08:44 | PCM.PROG ---
Progress Note Progress Note for Day of Date of Exam: 12/24/20 Subjective Subjective: Pt is a 80 year old male past medical history alcohol use disorder admitted for Covid-19 pneumonia with hypoxia. This morning patient appears to be about the same as yesterday. After vigorous stimuli he will open his eyes briefly and move in the bed. He is currently utilizing heated high flow oxygen with FiO2 50%. Labs/imaging: Wbc 10, Hgb 15.5, Plt 217, Na 149, K 2.7, Creatinine 0.85, Glucose 176, CRP 234>157, ABG was obtained: pH 7.6, pCO2 27, pO2 51, HCO3 26, O2 sat 92% on Heated high flow oxygen 50%. CXR: No significant change in appearance of bilateral pneumonia. Pt is currently on treatment protocol that includes: IVF D5W+20KCL@75ml/h, Remdesivir, Solumedrol 125mg q6h, scheduled Bronchodilators, Antibiotics: Levaquin, Ivermectin, Lovenox 30mg BID, IV thiamine 200mg BID, immune supporting supplements, supplemental O2, I/S, Respiratory therapy consult, Pneumonia protocol. Discussed with daughter of patient his mental and respiratory status. Otherwise, continue to replete po tassium per protocol. Wean/titrate oxygen as tolerated. Continue to monitor closely and follow up labs/imaging. Time spent on clinical assessment, reviewing labs and imaging, decision making, and documentation greater than 45 minutes. Past Medical Family Social History Past Med/Fam/Surg Hx: No changes since H&P Allergies: Allergies Penicillins Allergy (Verified 12/20/20 14:17) Review of Systems ROS: No change since H&P Vital Signs and I&O's Vital Signs: Temperature 98.8 F Pulse Rate [Left Brachial] 81 Pulse Rate 100 Respiratory Rate 32 Blood Pressure [Left Arm] 130/72 Blood Pressure 151/101 O2 Sat by Pulse Oximetry 90 Intake and Output: Intake & Output 12/22/20 12/23/20 12/24/20 12/25/20 23:59 23:59 23:59 23:59 Intake Total 3108 / 3108 2960 / 2960 2737 / 2737 610 / 610 Output Total 1225 / 1225 4250 / 4250 1800 / 1800 200 / 200 Balance 1883 / 1883 -1290 / -1290 937 / 937 410 / 410 Physical Exam Oriented: Other (Alert, answers yes or no with significant fatigue) Eyes: Normal Ear: Normal Nose: Normal Throat: Normal Respiratory: Diminished and Rales Cardiovascular: Normal : Normal Auscultation: Bowel Sounds: Normal Tenderness: Normal Skin: Normal Musculoskeletal: Normal Psychiatric: Normal Mood Description: Calm and Appropriate Affect: Normal Speech Pattern: Unclear Laboratory and Diagnostics Result Diagrams: 12/25/20 05:53 12/25/20 05:53 Labs: Laboratory WBC 11.6 X10^3/uL (3.6-10.0) H 12/25/20 05:53 RBC 5.18 X10^6/uL (4.7-6.0) 12/25/20 05:53 Hgb 15.6 g/dL (13.5-18.0) 12/25/20 05:53 Hct 46.1 % (42.0-54.0) 12/25/20 05:53 MCV 88.9 fL (80.0-100.0) 12/25/20 05:53 MCH 30.1 pg (27.0-34.0) 12/25/20 05:53 MCHC 33.8 g/dL (33.0-35.0) 12/25/20 05:53 RDW 14.0 % (11.6-16.5) 12/25/20 05:53 Plt Count 211 X10^3/uL (150.0-450.0) 12/25/20 05:53 Plt Count Comment Adequate (ADEQUATE) 12/25/20 05:53 MPV 9.2 fL (7.4-11.0) 12/25/20 05:53 Neut % (Auto) 95.5 % (42.0-75.0) H 12/25/20 05:53 Lymph % (Auto) 1.3 % (21.0-51.0) L 12/25/20 05:53 [place] % (Auto) 3.0 % (0.0-13.0) 12/25/20 05:53 Eos % (Auto) 0.0 % (0.9-2.9) L 12/25/20 05:53 Baso % (Auto) 0.2 % (0.2-1.0) 12/25/20 05:53 Neut # (Auto) 11.1 x10^3/uL (2.2-4.8) H 12/25/20 05:53 Lymph # (Auto) 0.1 X10^3/uL (1.3-2.9) L 12/25/20 05:53 [place] # (Auto) 0.3 x10^3/uL (0.3-0.8) 12/25/20 05:53 Eos # (Auto) 0.0 x10^3/uL (0.0-0.2) 12/25/20 05:53 Baso # (Auto) 0.0 X10^3/uL (0.0-0.1) 12/25/20 05:53 Absolute Nucleated RBC 0.0 /100WBC 12/25/20 05:53 Total Counted 100 12/25/20 05:53 Neutrophils % (Manual) 92 % (39-76) H 12/25/20 05:53 Band Neutrophils % 3 % (0-10) 12/25/20 05:53 Lymphocytes % (Manual) 3 % (13-43) L 12/25/20 05:53 Monocytes % (Manual) 2 % (4-9) L 12/25/20 05:53 Plt Morphology Comment Normal (NORMAL) 12/25/20 05:53 RBC Morphology Normal (NORMAL) 12/25/20 05:53 D-Dimer 3.60 ug/ml (0.0-0.57) H* 12/20/20 08:40 Sample Site Right brachial 12/24/20 11:20 ABG pH 7.600 (7.35-7.45) H* 12/24/20 11:20 ABG pCO2 27.0 mmHg (35.0-45.0) L 12/24/20 11:20 ABG pO2 51.0 mmHg (80.0-100.0) L 12/24/20 11:20 ABG HCO3 26.5 mmol/L (22-26) H 12/24/20 11:20 ABG O2 Saturation 92.0 % (90-100) 12/24/20 11:20 ABG Base Excess 5.6 mmol/L (-2.0-2.0) H 12/24/20 11:20 Andrew Test Na 12/24/20 11:20 A-a Gradient 272.0 mmHg 12/24/20 11:20 FiO2 50.0 12/24/20 11:20 Blood Gas Comments Daron well aw 12/24/20 11:20 Sodium 146 mmol/L (136-145) H 12/25/20 05:53 Corrected Sodium 148 mmol/L (136-145) H 12/25/20 05:53 Potassium 3.3 mmol/L (3.5-5.1) L 12/25/20 05:53 Chloride 111 mmol/L (98-107) H 12/25/20 05:53 Carbon Dioxide 26.4 mmol/L (21-32) 12/25/20 05:53 BUN 16 mg/dL (7-18) 12/25/20 05:53 Creatinine 0.85 mg/dL (0.70-1.30) 12/25/20 05:53 Est GFR (MDRD) Af Amer > 60 (>60) 12/25/20 05:53 Est GFR (MDRD) Non-Af > 60 (>60) 12/25/20 05:53 Glucose 184 mg/dL (65-99) H 12/25/20 05:53 POC Glucose (mg/dL) 137 mg/dL (65-99) H 12/22/20 05:42 Calcium 8.2 mg/dL (8.5-10.1) L 12/25/20 05:53 Corrected Calcium 9.8 mg/dL (8.5-10.1) 12/25/20 05:53 Magnesium 2.6 mg/dL (1.7-2.9) 12/25/20 05:53 Total Bilirubin 1.00 mg/dL (0.2-1.0) 12/25/20 05:53 AST 45 Units/L (15-37) H 12/25/20 05:53 ALT 50 Units/L (12-78) 12/25/20 05:53 Alkaline Phosphatase 55 Units/L (46-116) 12/25/20 05:53 Creatine Kinase 177 Units/L (39-308) 12/20/20 14:27 CK-MB (CK-2) < 1.0 ng/mL (0-4.0) 12/20/20 14:27 CK/CKMB % Calc 0.6 % (<4) 12/20/20 14:27 Troponin I < 0.02 ng/mL (0-1.5) 12/20/20 14:27 C-Reactive Protein 112.60 mg/L (0-3.0) H 12/25/20 05:53 Total Protein 7.0 g/dL (6.4-8.2) 12/25/20 05:53 Albumin 2.0 g/dL (3.4-5.0) L 12/25/20 05:53 Globulin 5.0 g/dL (2.5-4.5) H 12/25/20 05:53 Albumin/Globulin Ratio 0.4 Ratio (1.1-2.1) L 12/25/20 05:53 Lipase 185 Units/L (73-393) 12/19/20 19:01 Specimen Type Clean catch urine 12/20/20 02:17 Urine Color Dark yellow (YELLOW) 12/20/20 02:17 Urine Appearance Hazy (CLEAR) 12/20/20 02:17 Urine pH 6.0 (5.0 - 8.0) 12/20/20 02:17 Ur Specific [place] 1.015 (1.000-1.030) 12/20/20 02:17 Urine Protein 3+ (NEGATIVE) 12/20/20 02:17 Urine Glucose (UA) Negative (NEGATIVE) 12/20/20 02:17 Urine Ketones 2+ (NEGATIVE) 12/20/20 02:17 Urine Occult Blood 3+ (NEGATIVE) 12/20/20 02:17 Urine Nitrite Negative (NEGATIVE) 12/20/20 02:17 Urine Bilirubin 1+ (NEGATIVE) 12/20/20 02:17 Urine Urobilinogen 3+ (NORMAL) 12/20/20 02:17 Ur Leukocyte Esterase Negative (NEGATIVE) 12/20/20 02:17 Urine RBC 3-5 /HPF (0-3) A 12/20/20 02:17 Urine WBC 3-5 /HPF (0-5) 12/20/20 02:17 Ur Squamous Epith Cells Rare /HPF (NEGATIVE) 12/20/20 02:17 Urine Bacteria Trace /HPF (NEGATIVE) 12/20/20 02:17 Urine Mucus Few /HPF (NEGATIVE) 12/20/20 02:17 Urine Sperm Numerous /HPF (NEGATIVE) 12/20/20 02:17 Ur Culture Indicated? No/not indicated 12/20/20 02:17 SARS-CoV-2 (PCR) Positive (NEGATIVE) A 12/19/20 19:32 Influenza Type A (PCR) Negative (NEGATIVE) 12/19/20 19:32 Influenza Type B (PCR) Negative (NEGATIVE) 12/19/20 19:32 RSV (PCR) Negative (NEGATIVE) 12/19/20 19:32
[2020-12-25] MEDS: PULMICORT NEB TX 0.5 MG NEB SCH ×2 (09:18→20:10)
[2020-12-25] MEDS: BROVANA IN SCH ×2 (09:18→20:10)
[2020-12-25] MEDS: LEVAQUIN PREMIX IV 500 MG 500 MG/100 ML BAG IV SCH (10:09)
[2020-12-25] MEDS: K-RIDER 10 MEQ/NS 100 ML 10 MEQ/100 ML BAG IV PRN ×4 (11:34→16:15)
[2020-12-25] MEDS: HumuLIN R SC PRN ×2 (12:09→16:58)
[2020-12-25] MEDS ORDERED: PULMICORT NEB TX 0.5 MG NEB ONE (18:59)
[2020-12-25] MEDS ORDERED: BROVANA ONE (19:00)
--- NOTE | 2020-12-26 00:18 | PCM.PROG ---
Progress Note Progress Note for Day of Date of Exam: 12/25/20 Subjective Subjective: Pt is a 80 year old male past medical history alcohol use disorder admitted for Covid-19 pneumonia with hypoxia. This morning patient appears to be more alert and following commands compared to yesterday. He is currently utilizing heated high flow oxygen with FiO2 50%. Labs/imaging: Wbc 11.6, Hgb 15.6, Plt 211, Na 146, K 3.3, Creatinine 0.85, Glucose 184, CRP 157>112, CXR: Persistent pneumonia with slight apparent improvement in the left upper lobe. Pt is currently on treatment protocol that includes: IVF D5W+20KCL@75ml/h, Remdesivir, Solumedrol 125mg q6h, scheduled Bronchodilators, Antibiotics: Levaquin, Lovenox 30mg BID, IV thiamine 200mg BID, immune supporting supplements, supplemental O2, I/S, Respiratory therapy consult, Pneumonia protocol. Will continue to replete potassium per protocol. Wean/titrate oxygen as tolerated. Continue to monitor closely and follow up labs/imaging. Time spent on clinical assessment, reviewing labs and imaging, decision making, and documentation greater than 45 minutes. Past Medical Family Social History Past Med/Fam/Surg Hx: No changes since H&P Allergies: Allergies Penicillins Allergy (Verified 12/20/20 14:17) Review of Systems ROS: No change since H&P Vital Signs and I&O's Vital Signs: Temperature 98.2 F Pulse Rate [Left Brachial] 81 Pulse Rate 77 Respiratory Rate 24 Blood Pressure [Left Arm] 130/72 Blood Pressure 176/89 O2 Sat by Pulse Oximetry 90 Intake and Output: Intake & Output 12/23/20 12/24/20 12/25/20 12/26/20 23:59 23:59 23:59 23:59 Intake Total 2960 / 2960 2737 / 2737 2350 / 2350 0 / 0 Output Total 4250 / 4250 1800 / 1800 800 / 800 350 / 350 Balance -1290 / -1290 937 / 937 1550 / 1550 -350 / -350 Physical Exam Oriented: Other (Alert, answers yes or no with significant fatigue) Eyes: Normal Ear: Normal Nose: Normal Throat: Normal Respiratory: Diminished and Rales Cardiovascular: Normal : Normal Auscultation: Bowel Sounds: Normal Tenderness: Normal Skin: Normal Musculoskeletal: Normal Psychiatric: Normal Mood Description: Calm and Appropriate Affect: Normal Speech Pattern: Unclear Laboratory and Diagnostics Result Diagrams: 12/25/20 05:53 12/25/20 18:45 Labs: Laboratory WBC 11.6 X10^3/uL (3.6-10.0) H 12/25/20 05:53 RBC 5.18 X10^6/uL (4.7-6.0) 12/25/20 05:53 Hgb 15.6 g/dL (13.5-18.0) 12/25/20 05:53 Hct 46.1 % (42.0-54.0) 12/25/20 05:53 MCV 88.9 fL (80.0-100.0) 12/25/20 05:53 MCH 30.1 pg (27.0-34.0) 12/25/20 05:53 MCHC 33.8 g/dL (33.0-35.0) 12/25/20 05:53 RDW 14.0 % (11.6-16.5) 12/25/20 05:53 Plt Count 211 X10^3/uL (150.0-450.0) 12/25/20 05:53 Plt Count Comment Adequate (ADEQUATE) 12/25/20 05:53 MPV 9.2 fL (7.4-11.0) 12/25/20 05:53 Neut % (Auto) 95.5 % (42.0-75.0) H 12/25/20 05:53 Lymph % (Auto) 1.3 % (21.0-51.0) L 12/25/20 05:53 [place] % (Auto) 3.0 % (0.0-13.0) 12/25/20 05:53 Eos % (Auto) 0.0 % (0.9-2.9) L 12/25/20 05:53 Baso % (Auto) 0.2 % (0.2-1.0) 12/25/20 05:53 Neut # (Auto) 11.1 x10^3/uL (2.2-4.8) H 12/25/20 05:53 Lymph # (Auto) 0.1 X10^3/uL (1.3-2.9) L 12/25/20 05:53 [place] # (Auto) 0.3 x10^3/uL (0.3-0.8) 12/25/20 05:53 Eos # (Auto) 0.0 x10^3/uL (0.0-0.2) 12/25/20 05:53 Baso # (Auto) 0.0 X10^3/uL (0.0-0.1) 12/25/20 05:53 Absolute Nucleated RBC 0.0 /100WBC 12/25/20 05:53 Total Counted 100 12/25/20 05:53 Neutrophils % (Manual) 92 % (39-76) H 12/25/20 05:53 Band Neutrophils % 3 % (0-10) 12/25/20 05:53 Lymphocytes % (Manual) 3 % (13-43) L 12/25/20 05:53 Monocytes % (Manual) 2 % (4-9) L 12/25/20 05:53 Plt Morphology Comment Normal (NORMAL) 12/25/20 05:53 RBC Morphology Normal (NORMAL) 12/25/20 05:53 D-Dimer 3.60 ug/ml (0.0-0.57) H* 12/20/20 08:40 Sample Site Right brachial 12/24/20 11:20 ABG pH 7.600 (7.35-7.45) H* 12/24/20 11:20 ABG pCO2 27.0 mmHg (35.0-45.0) L 12/24/20 11:20 ABG pO2 51.0 mmHg (80.0-100.0) L 12/24/20 11:20 ABG HCO3 26.5 mmol/L (22-26) H 12/24/20 11:20 ABG O2 Saturation 92.0 % (90-100) 12/24/20 11:20 ABG Base Excess 5.6 mmol/L (-2.0-2.0) H 12/24/20 11:20 Andrew Test Na 12/24/20 11:20 A-a Gradient 272.0 mmHg 12/24/20 11:20 FiO2 50.0 12/24/20 11:20 Blood Gas Comments Daron well aw 12/24/20 11:20 Sodium 146 mmol/L (136-145) H 12/25/20 05:53 Corrected Sodium 148 mmol/L (136-145) H 12/25/20 05:53 Potassium 3.9 mmol/L (3.5-5.1) 12/25/20 18:45 Chloride 111 mmol/L (98-107) H 12/25/20 05:53 Carbon Dioxide 26.4 mmol/L (21-32) 12/25/20 05:53 BUN 16 mg/dL (7-18) 12/25/20 05:53 Creatinine 0.85 mg/dL (0.70-1.30) 12/25/20 05:53 Est GFR (MDRD) Af Amer > 60 (>60) 12/25/20 05:53 Est GFR (MDRD) Non-Af > 60 (>60) 12/25/20 05:53 Glucose 184 mg/dL (65-99) H 12/25/20 05:53 POC Glucose (mg/dL) 137 mg/dL (65-99) H 12/22/20 05:42 Calcium 8.2 mg/dL (8.5-10.1) L 12/25/20 05:53 Corrected Calcium 9.8 mg/dL (8.5-10.1) 12/25/20 05:53 Magnesium 2.6 mg/dL (1.7-2.9) 12/25/20 05:53 Total Bilirubin 1.00 mg/dL (0.2-1.0) 12/25/20 05:53 AST 45 Units/L (15-37) H 12/25/20 05:53 ALT 50 Units/L (12-78) 12/25/20 05:53 Alkaline Phosphatase 55 Units/L (46-116) 12/25/20 05:53 Creatine Kinase 177 Units/L (39-308) 12/20/20 14:27 CK-MB (CK-2) < 1.0 ng/mL (0-4.0) 12/20/20 14:27 CK/CKMB % Calc 0.6 % (<4) 12/20/20 14:27 Troponin I < 0.02 ng/mL (0-1.5) 12/20/20 14:27 C-Reactive Protein 112.60 mg/L (0-3.0) H 12/25/20 05:53 Total Protein 7.0 g/dL (6.4-8.2) 12/25/20 05:53 Albumin 2.0 g/dL (3.4-5.0) L 12/25/20 05:53 Globulin 5.0 g/dL (2.5-4.5) H 12/25/20 05:53 Albumin/Globulin Ratio 0.4 Ratio (1.1-2.1) L 12/25/20 05:53 Lipase 185 Units/L (73-393) 12/19/20 19:01 Specimen Type Clean catch urine 12/20/20 02:17 Urine Color Dark yellow (YELLOW) 12/20/20 02:17 Urine Appearance Hazy (CLEAR) 12/20/20 02:17 Urine pH 6.0 (5.0 - 8.0) 12/20/20 02:17 Ur Specific [place] 1.015 (1.000-1.030) 12/20/20 02:17 Urine Protein 3+ (NEGATIVE) 12/20/20 02:17 Urine Glucose (UA) Negative (NEGATIVE) 12/20/20 02:17 Urine Ketones 2+ (NEGATIVE) 12/20/20 02:17 Urine Occult Blood 3+ (NEGATIVE) 12/20/20 02:17 Urine Nitrite Negative (NEGATIVE) 12/20/20 02:17 Urine Bilirubin 1+ (NEGATIVE) 12/20/20 02:17 Urine Urobilinogen 3+ (NORMAL) 12/20/20 02:17 Ur Leukocyte Esterase Negative (NEGATIVE) 12/20/20 02:17 Urine RBC 3-5 /HPF (0-3) A 12/20/20 02:17 Urine WBC 3-5 /HPF (0-5) 12/20/20 02:17 Ur Squamous Epith Cells Rare /HPF (NEGATIVE) 12/20/20 02:17 Urine Bacteria Trace /HPF (NEGATIVE) 12/20/20 02:17 Urine Mucus Few /HPF (NEGATIVE) 12/20/20 02:17 Urine Sperm Numerous /HPF (NEGATIVE) 12/20/20 02:17 Ur Culture Indicated? No/not indicated 12/20/20 02:17 SARS-CoV-2 (PCR) Positive (NEGATIVE) A 12/19/20 19:32 Influenza Type A (PCR) Negative (NEGATIVE) 12/19/20 19:32 Influenza Type B (PCR) Negative (NEGATIVE) 12/19/20 19:32 RSV (PCR) Negative (NEGATIVE) 12/19/20 19:32
[2020-12-26] MEDS: SOLU-Medrol 125 MG VIAL IVP SCH ×4 (02:16→21:43)
[2020-12-26] MEDS: ASCORBIC ACID INJ MULTI-DOSE VIAL 1,500 MG in NS 100 ML IV 100 ML IV SCH ×4 (02:16→21:42)
[2020-12-26] MEDS: D5W IV SCH ×4 (02:26→14:39)
[2020-12-26] MEDS: KCL IV SCH ×4 (02:26→14:39)
[2020-12-26] MEDS: POTASSIUM CHLORIDE IV SCH ×4 (02:26→14:39)
[2020-12-26] MEDS: LOPRESSOR INJ 5 MG AMP IVP PRN ×3 (04:01→22:00)
[2020-12-26 05:33] LABS: BASOPHILS % (AUTO) 0.2 % (0.2-1.0); EOSINOPHILS % (AUTO) 0.1 % (0.9-2.9); HEMATOCRIT 45.3 % (42.0-54.0); HEMOGLOBIN 15.6 g/dL (13.5-18.0); LYMPHOCYTES # (AUTO) 0.2 X10^3/uL (1.3-2.9); LYMPHOCYTES % (AUTO) 1.1 % (21.0-51.0); MEAN CORPUSCULAR HEMOGLOBIN 30.6 pg (27.0-34.0); MEAN CORPUSCULAR HGB CONC 34.5 g/dL (33.0-35.0); MEAN CORPUSCULAR VOLUME 88.7 fL (80.0-100.0); MEAN PLATELET VOLUME 9.6 fL (7.4-11.0); MONOCYTES # (AUTO) 0.4 x10^3/uL (0.3-0.8); MONOCYTES % (AUTO) 2.7 % (0.0-13.0); NEUTROPHILS % (AUTO) 95.9 % (42.0-75.0); PLATELET COUNT 195 X10^3/uL (150.0-450.0); RED BLOOD COUNT 5.11 X10^6/uL (4.7-6.0); WHITE BLOOD COUNT 14.6 X10^3/uL (3.6-10.0)
[2020-12-26 05:51] LABS: ALANINE AMINOTRANSFERASE 37 Units/L (12-78); ALBUMIN 1.9 g/dL (3.4-5.0); ALKALINE PHOSPHATASE 58 Units/L (46-116); ASPARTATE AMINO TRANSFERASE 32 Units/L (15-37); BLOOD UREA NITROGEN 17 mg/dL (7-18); CALCIUM 8.2 mg/dL (8.5-10.1); CARBON DIOXIDE 22.1 mmol/L (21-32); CHLORIDE 111 mmol/L (98-107); COR CA(FOR HYPOALB) 9.9 mg/dL (8.5-10.1); COR NA(FOR HYPERGLY) 146 mmol/L (136-145); CREATININE 0.81 mg/dL (0.70-1.30); SODIUM 144 mmol/L (136-145); TOTAL PROTEIN 6.8 g/dL (6.4-8.2); eGFR NON BLACK RACES > 60 (>60)
[2020-12-26 06:21] LABS: PLATELET MORPHOLOGY COMMENT NORMAL (NORMAL)
[2020-12-26] MEDS ORDERED: PULMICORT NEB TX 0.5 MG NEB ONE (08:38)
[2020-12-26] MEDS ORDERED: BROVANA ONE (08:38)
[2020-12-26] MEDS: BROVANA IN SCH ×2 (09:05→20:35)
[2020-12-26] MEDS: PULMICORT NEB TX 0.5 MG NEB SCH ×2 (09:05→20:35)
[2020-12-26] MEDS: PEPCID TAB 40 MG PO SCH ×3 (09:11→21:43)
[2020-12-26] MEDS: LEVAQUIN PREMIX IV 500 MG 500 MG/100 ML BAG IV SCH (09:11)
[2020-12-26] MEDS: ZINC SULFATE PO SCH ×2 (09:11→09:35)
[2020-12-26] MEDS: THIAMINE HCL INJ IVP SCH ×2 (09:14→21:43)
[2020-12-26] MEDS: VITAMIN D3 125 mcg (5,000 UNITS) PO SCH ×2 (09:14→09:37)
[2020-12-26] MEDS: VITAMIN A PO SCH (09:35)
[2020-12-26] MEDS: LOVENOX INJ 30 MG SYR SC SCH ×2 (10:30→21:42)
--- NOTE | 2020-12-26 11:04 | RAD ---
HISTORYCOVID pneumoniaSTUDYPortable AP [id number] normal heart size. Bilateral airspace disease is similar i n the left lung with minimal apparent progression on the right. No complicating pneumothorax or devel oping pleural fluid is identified.IMPRESSIONPersistent bilateral pneumonia with suggestion of slight interval progression in the right lung since 1 day earlier.Electronically signed by: DELANO MARTINEZ ( Dec 26, 2020 11:02:36)
[2020-12-26] MEDS: NYSTATIN SUSP PO SCH ×3 (14:40→21:44)
--- NOTE | 2020-12-26 23:51 | PCM.PROG ---
Progress Note Progress Note for Day of Date of Exam: 12/26/20 Subjective Subjective: Pt is a 80 year old male past medical history alcohol use disorder admitted for Covid-19 pneumonia with hypoxia. Patient's mental status has shown some minor improvement. He is currently utilizing heated high flow oxygen with FiO2 40%. Labs/imaging: Wbc 14.6, Hgb 15.6, Plt 195, Na 144, K 4.1, Creatinine 0.81, Glucose 171, CRP 112>111, CXR: Persistent bilateral pneumonia with suggestion of slight interval progression in the right lung since 1 day earlier. Pt is currently on treatment protocol that includes: IVF D5W+20KCL@75ml/h, Remdesivir, Solumedrol 125mg q6h, scheduled Bronchodilators, Antibiotics: Levaquin, Lovenox 30mg BID, IV thiamine 200mg BID, immune supporting supplements, supplemental O2, I/S, Respiratory therapy consult, Pneumonia protocol. Will continue to replete potassium per protocol. Add IV Doxycycline 100mg BID. Wean/titrate oxygen as tolerated. Continue to monitor closely and follow up labs/imaging. Time spent on clinical assessment, reviewing labs and imaging, decision making, and documentation greater than 45 minutes. Past Medical Family Social History Past Med/Fam/Surg Hx: No changes since H&P Allergies: Allergies Penicillins Allergy (Verified 12/20/20 14:17) Review of Systems ROS: No change since H&P Vital Signs and I&O's Vital Signs: Temperature 98.6 F Pulse Rate [Left Brachial] 81 Pulse Rate 115 Respiratory Rate 29 Blood Pressure [Left Arm] 130/72 Blood Pressure 162/97 O2 Sat by Pulse Oximetry 90 Intake and Output: Intake & Output 12/23/20 12/24/20 12/25/20 12/26/20 23:59 23:59 23:59 23:59 Intake Total 2960 / 2960 2737 / 2737 2350 / 2350 2031 / 2031 Output Total 4250 / 4250 1800 / 1800 800 / 800 1600 / 1600 Balance -1290 / -1290 937 / 937 1550 / 1550 432 / 432 Physical Exam Oriented: Other (Alert, answers yes or no with significant fatigue) Eyes: Normal Ear: Normal Nose: Normal Throat: Normal Respiratory: Diminished and [place]ales Cardiovascular: Normal : Normal Auscultation: Bowel Sounds: Normal Tenderness: Normal Skin: Normal Musculoskeletal: Normal Psychiatric: Normal Mood Description: Calm and Appropriate Affect: Normal Speech Pattern: Unclear Laboratory and Diagnostics Result Diagrams: 12/26/20 04:41 12/26/20 04:41 Labs: Laboratory WBC 14.6 X10^3/uL (3.6-10.0) H 12/26/20 04:41 RBC 5.11 X10^6/uL (4.7-6.0) 12/26/20 04:41 Hgb 15.6 g/dL (13.5-18.0) 12/26/20 04:41 Hct 45.3 % (42.0-54.0) 12/26/20 04:41 MCV 88.7 fL (80.0-100.0) 12/26/20 04:41 MCH 30.6 pg (27.0-34.0) 12/26/20 04:41 MCHC 34.5 g/dL (33.0-35.0) 12/26/20 04:41 RDW 14.0 % (11.6-16.5) 12/26/20 04:41 Plt Count 195 X10^3/uL (150.0-450.0) 12/26/20 04:41 Plt Count Comment Adequate (ADEQUATE) 12/26/20 04:41 MPV 9.6 fL (7.4-11.0) 12/26/20 04:41 Neut % (Auto) 95.9 % (42.0-75.0) H 12/26/20 04:41 Lymph % (Auto) 1.1 % (21.0-51.0) L 12/26/20 04:41 [place] % (Auto) 2.7 % (0.0-13.0) 12/26/20 04:41 Eos % (Auto) 0.1 % (0.9-2.9) L 12/26/20 04:41 Baso % (Auto) 0.2 % (0.2-1.0) 12/26/20 04:41 Neut # (Auto) 14.0 x10^3/uL (2.2-4.8) H 12/26/20 04:41 Lymph # (Auto) 0.2 X10^3/uL (1.3-2.9) L 12/26/20 04:41 [place] # (Auto) 0.4 x10^3/uL (0.3-0.8) 12/26/20 04:41 Eos # (Auto) 0.0 x10^3/uL (0.0-0.2) 12/26/20 04:41 Baso # (Auto) 0.0 X10^3/uL (0.0-0.1) 12/26/20 04:41 Absolute Nucleated RBC 0.1 /100WBC 12/26/20 04:41 Total Counted 100 12/26/20 04:41 Neutrophils % (Manual) 100 % (39-76) H 12/26/20 04:41 Band Neutrophils % 3 % (0-10) 12/25/20 05:53 Lymphocytes % (Manual) Not Reportable 12/26/20 04:41 Monocytes % (Manual) 2 % (4-9) L 12/25/20 05:53 Plt Morphology Comment Normal (NORMAL) 12/26/20 04:41 RBC Morphology Normal (NORMAL) 12/26/20 04:41 D-Dimer 3.60 ug/ml (0.0-0.57) H* 12/20/20 08:40 Sample Site Right brachial 12/24/20 11:20 ABG pH 7.600 (7.35-7.45) H* 12/24/20 11:20 ABG pCO2 27.0 mmHg (35.0-45.0) L 12/24/20 11:20 ABG pO2 51.0 mmHg (80.0-100.0) L 12/24/20 11:20 ABG HCO3 26.5 mmol/L (22-26) H 12/24/20 11:20 ABG O2 Saturation 92.0 % (90-100) 12/24/20 11:20 ABG Base Excess 5.6 mmol/L (-2.0-2.0) H 12/24/20 11:20 Andrew Test Na 12/24/20 11:20 A-a Gradient 272.0 mmHg 12/24/20 11:20 FiO2 50.0 12/24/20 11:20 Blood Gas Comments Daron well aw 12/24/20 11:20 Sodium 144 mmol/L (136-145) 12/26/20 04:41 Corrected Sodium 146 mmol/L (136-145) H 12/26/20 04:41 Potassium 4.1 mmol/L (3.5-5.1) 12/26/20 04:41 Chloride 111 mmol/L (98-107) H 12/26/20 04:41 Carbon Dioxide 22.1 mmol/L (21-32) 12/26/20 04:41 BUN 17 mg/dL (7-18) 12/26/20 04:41 Creatinine 0.81 mg/dL (0.70-1.30) 12/26/20 04:41 Est GFR (MDRD) Af Amer > 60 (>60) 12/26/20 04:41 Est GFR (MDRD) Non-Af > 60 (>60) 12/26/20 04:41 Glucose 171 mg/dL (65-99) H 12/26/20 04:41 POC Glucose (mg/dL) 137 mg/dL (65-99) H 12/22/20 05:42 Calcium 8.2 mg/dL (8.5-10.1) L 12/26/20 04:41 Corrected Calcium 9.9 mg/dL (8.5-10.1) 12/26/20 04:41 Magnesium 2.6 mg/dL (1.7-2.9) 12/25/20 05:53 Total Bilirubin 1.00 mg/dL (0.2-1.0) 12/26/20 04:41 AST 32 Units/L (15-37) 12/26/20 04:41 ALT 37 Units/L (12-78) 12/26/20 04:41 Alkaline Phosphatase 58 Units/L (46-116) 12/26/20 04:41 Creatine Kinase 177 Units/L (39-308) 12/20/20 14:27 CK-MB (CK-2) < 1.0 ng/mL (0-4.0) 12/20/20 14:27 CK/CKMB % Calc 0.6 % (<4) 12/20/20 14:27 Troponin I < 0.02 ng/mL (0-1.5) 12/20/20 14:27 C-Reactive Protein 111.90 mg/L (0-3.0) H 12/26/20 04:41 Total Protein 6.8 g/dL (6.4-8.2) 12/26/20 04:41 Albumin 1.9 g/dL (3.4-5.0) L 12/26/20 04:41 Globulin 4.9 g/dL (2.5-4.5) H 12/26/20 04:41 Albumin/Globulin Ratio 0.4 Ratio (1.1-2.1) L 12/26/20 04:41 Lipase 185 Units/L (73-393) 12/19/20 19:01 Specimen Type Clean catch urine 12/20/20 02:17 Urine Color Dark yellow (YELLOW) 12/20/20 02:17 Urine Appearance Hazy (CLEAR) 12/20/20 02:17 Urine pH 6.0 (5.0 - 8.0) 12/20/20 02:17 Ur Specific [place] 1.015 (1.000-1.030) 12/20/20 02:17 Urine Protein 3+ (NEGATIVE) 12/20/20 02:17 Urine Glucose (UA) Negative (NEGATIVE) 12/20/20 02:17 Urine Ketones 2+ (NEGATIVE) 12/20/20 02:17 Urine Occult Blood 3+ (NEGATIVE) 12/20/20 02:17 Urine Nitrite Negative (NEGATIVE) 12/20/20 02:17 Urine Bilirubin 1+ (NEGATIVE) 12/20/20 02:17 Urine Urobilinogen 3+ (NORMAL) 12/20/20 02:17 Ur Leukocyte Esterase Negative (NEGATIVE) 12/20/20 02:17 Urine RBC 3-5 /HPF (0-3) A 12/20/20 02:17 Urine WBC 3-5 /HPF (0-5) 12/20/20 02:17 Ur Squamous Epith Cells Rare /HPF (NEGATIVE) 12/20/20 02:17 Urine Bacteria Trace /HPF (NEGATIVE) 12/20/20 02:17 Urine Mucus Few /HPF (NEGATIVE) 12/20/20 02:17 Urine Sperm Numerous /HPF (NEGATIVE) 12/20/20 02:17 Ur Culture Indicated? No/not indicated 12/20/20 02:17 SARS-CoV-2 (PCR) Positive (NEGATIVE) A 12/19/20 19:32 Influenza Type A (PCR) Negative (NEGATIVE) 12/19/20 19:32 Influenza Type B (PCR) Negative (NEGATIVE) 12/19/20 19:32 RSV (PCR) Negative (NEGATIVE) 12/19/20 19:32
[2020-12-27] MEDS: ZINC SULFATE PO SCH ×3 (00:52→20:56)
[2020-12-27] MEDS: SOLU-Medrol 125 MG VIAL IVP SCH ×4 (02:00→20:49)
[2020-12-27] MEDS: ASCORBIC ACID INJ MULTI-DOSE VIAL 1,500 MG in NS 100 ML IV 100 ML IV SCH ×4 (02:01→20:47)
[2020-12-27] MEDS: APRESOLINE INJ 20 MG VIAL IVP PRN (04:51)
[2020-12-27] MEDS: POTASSIUM CHLORIDE IV SCH ×4 (05:25→16:43)
[2020-12-27] MEDS: KCL IV SCH ×4 (05:25→16:43)
[2020-12-27] MEDS: D5W IV SCH ×4 (05:25→16:43)
[2020-12-27 06:29] LABS: BASOPHILS % (AUTO) 0.2 % (0.2-1.0); HEMATOCRIT 47.1 % (42.0-54.0); HEMOGLOBIN 16.3 g/dL (13.5-18.0); LYMPHOCYTES # (AUTO) 0.2 X10^3/uL (1.3-2.9); LYMPHOCYTES % (AUTO) 1.2 % (21.0-51.0); MEAN CORPUSCULAR HEMOGLOBIN 30.8 pg (27.0-34.0); MEAN CORPUSCULAR HGB CONC 34.6 g/dL (33.0-35.0); MEAN CORPUSCULAR VOLUME 88.9 fL (80.0-100.0); MEAN PLATELET VOLUME 10.2 fL (7.4-11.0); MONOCYTES # (AUTO) 0.4 x10^3/uL (0.3-0.8); MONOCYTES % (AUTO) 2.6 % (0.0-13.0); NEUTROPHILS # (AUTO) 16.2 x10^3/uL (2.2-4.8); PLATELET COUNT 164 X10^3/uL (150.0-450.0); RED CELL DISTRIBUTION WIDTH 14.1 % (11.6-16.5); WHITE BLOOD COUNT 16.9 X10^3/uL (3.6-10.0)
[2020-12-27 06:31] LABS: ALANINE AMINOTRANSFERASE 32 Units/L (12-78); ALBUMIN 1.8 g/dL (3.4-5.0); ALKALINE PHOSPHATASE 68 Units/L (46-116); ASPARTATE AMINO TRANSFERASE 26 Units/L (15-37); BLOOD UREA NITROGEN 17 mg/dL (7-18); CALCIUM 8.3 mg/dL (8.5-10.1); CARBON DIOXIDE 19.5 mmol/L (21-32); CHLORIDE 111 mmol/L (98-107); COR CA(FOR HYPOALB) 10.1 mg/dL (8.5-10.1); COR NA(FOR HYPERGLY) 145 mmol/L (136-145); CREATININE 0.86 mg/dL (0.70-1.30); SODIUM 143 mmol/L (136-145); eGFR NON BLACK RACES > 60 (>60)
--- NOTE | 2020-12-27 07:01 | CT ---
HISTORYCELLULITIS/FACIAL SWELLING, COVID PNEUMONIASTUDYFACIAL WITH CONCOMPARISONNone.TECHNIQUEMultiple axial images of the facial structures were obtained from the mandible to superior portions of the orbits. Sagital and Coronal reformats were created. Dose reduction techniques including Automated Exposure Control (AEC) and adjustment of mA and kV were utilized. Exam was performed with contrast.FINDINGSFacial bones: No acute facial bone fracture. Severe periodontal disease.Severe cervical spondylosis. 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 Mastoid air cells appear clear.Globes:Intact. No retrobulbar swelling or hematoma.Soft tissues:There is soft tissue swelling in the right worse than left submandibular space extending into the bilateral neck soft tissues. There is fat stranding in the left worse than right parapharyngeal space. There is fat stranding in the retropharyngeal space image 34 series 15 for example. The submandibular glands are obscured by soft tissue edema. No well-defined peripherally enhancing collection to suggest abscess. No discernible pathologic adenopathy.The airway measures 1 x 0.9 cm at the level just inferior to the epiglottis image 47 series 17, image 15 series 15.There is a round soft tissue mass at the right anterior nasal cavity that measures 2.3 x 2.2 cm axial image 53 series 15. Craniocaudal dimension is 2.3 cm image 16 series 16.IMPRESSIONSevere soft tissue edema in the bilateral submandibular regions extending into the neck and including the deep spaces of the neck including the parapharyngeal and retropharyngeal spaces. Infection in the retropharyngeal space can spread into the mediastinum causing mediastinitis. No discernible abscess. There is mild mass effect on the greta pharyngeal airway.Masslike soft tissue at the anterior nasal cavity. Recommend direct visualization and biopsy if necessary to exclude neoplasm.Electronically signed by: Ramy Mcgovern (Dec 27, 2020 06:58:52)
[2020-12-27 07:08] LABS: BAND NEUTROPHILS % 1 % (0-10); METAMYELOCYTES % 1; PLATELET MORPHOLOGY COMMENT NORMAL (NORMAL)
--- NOTE | 2020-12-27 07:50 | RAD ---
HISTORYPNEUMONIA F/USTUDYCHEST, 1 [id number]/06/2021FINDINGSVague patchy areas of opacity is bronchopneumonia, better appreciated on the CT 12/20/2020There may be slight improvement since yesterday. No pleural effusion or pneumothorax. Probable skin fold parallel to the left chest wall.Heart size is normal.Bones are unremarkable.EKG leads are noted.IMPRESSION1. Improved bronchopneumoniaElectronically signed by: John Cortez (Dec 27, 2020 07:48:07)
[2020-12-27] MEDS: LEVAQUIN PREMIX IV 500 MG 500 MG/100 ML BAG IV SCH (08:00)
[2020-12-27] MEDS: LOVENOX INJ 30 MG SYR SC SCH ×2 (08:14→20:48)
[2020-12-27] MEDS: THIAMINE HCL INJ IVP SCH ×2 (08:21→20:49)
[2020-12-27] MEDS: PEPCID TAB 40 MG PO SCH ×2 (08:22→20:49)
[2020-12-27] MEDS: NYSTATIN SUSP PO SCH ×4 (08:22→20:48)
[2020-12-27] MEDS: VITAMIN A PO SCH (08:23)
[2020-12-27] MEDS: VITAMIN D3 125 mcg (5,000 UNITS) PO SCH (08:23)
[2020-12-27] MEDS ORDERED: BROVANA ONE (08:38)
[2020-12-27] MEDS ORDERED: PULMICORT NEB TX 0.5 MG NEB ONE (08:38)
[2020-12-27] MEDS: PULMICORT NEB TX 0.5 MG NEB SCH ×2 (08:45→20:56)
[2020-12-27] MEDS: BROVANA IN SCH ×2 (08:45→20:56)
[2020-12-27] MEDS: LOPRESSOR INJ 5 MG AMP IVP PRN ×2 (08:46→23:00)
[2020-12-27] MEDS ORDERED: PHARMACY CONSULT - VANCOMYCIN XX SCH (09:00)
[2020-12-27] MEDS: VANCOMYCIN IV *PREMIX 1 G/200 ML BAG 1 G/200 ML PIGGYBACK IV SCH ×2 (10:50→20:50)
[2020-12-27] MEDS: HumuLIN R SC PRN ×2 (12:48→16:44)
[2020-12-27] MEDS ORDERED: ATIVAN INJ 2 MG VIAL IVP STA (16:20)
--- NOTE | 2020-12-27 22:43 | PCM.PROG ---
Progress Note Progress Note for Day of Date of Exam: 12/27/20 Subjective Subjective: Pt is a 80 year old male past medical history alcohol use disorder admitted for Covid-19 pneumonia with hypoxia. Patient's mental status has slightly improved from yesterday. He is more alert than before but still not eating. He is currently utilizing 6L nasal cannula supplemental oxygen. La bs/imaging: Wbc 16.9, Hgb 16.3, Plt 164, Na 143, K 4.2, Creatinine 0.86, Glucose 199, CRP 189, CXR: Improved bronchopneumonia. Yesterday, nursing noticed swelling of the face. CT face was obtained that revealed: Severe soft tissue edema in the bilateral submandibular regions extending into the neck and including the deep spaces of the neck including the parapharyngeal and retropharyngeal spaces. Infection in the retropharyngeal space can spread into the mediastinum causing mediastinitis. No discernible abscess. There is mild mass effect on the oropharyngeal airway. Masslike soft tissue at the anterior nasal cavity. Recommend direct visualization and biopsy if necessary to exclude neoplasm. Pt is currently on pneumonia treatment protocol that includes: IVF D5W+20KCL@75ml/h, Remdesivir, Solumedrol 125mg q6h, scheduled Bronchodilators, Antibiotics: Levaquin, Lovenox 30mg BID, IV thiamine 200mg BID, immune supporting supplements, supplemental O2, I/S, Respiratory therapy consult, Pneumonia protocol. Add IV Vancomycin due to findings on CT. Will start taper of steroids to Solumedrol 80mg q12h. Wean/titrate oxygen as tolerated. Continue to monitor closely and follow up labs/imaging. Time spent on clinical assessment, reviewing labs and imaging, decision making, and documentation greater than 45 minutes. Past Medical Family Social History Past Med/Fam/Surg Hx: No changes since H&P Allergies: Allergies Penicillins Allergy (Verified 12/20/20 14:17) Review of Systems ROS: No change since H&P Vital Signs and I&O's Vital Signs: Temperature 97.4 F Pulse Rate [Left Brachial] 81 Pulse Rate 96 Respiratory Rate 24 Blood Pressure [Left Arm] 130/72 Blood Pressure 160/94 O2 Sat by Pulse Oximetry 92 Intake and Output: Intake & Output 09/04/21 09/05/21 09/06/21 09/07/21 23:59 23:59 23:59 23:59 Intake Total 2737 / 2737 2350 / 2350 203 / 2031 1088 / 1088 Output Total 1800 / 1800 800 / 800 1600 / 1600 1650 / 1650 Balance 937 / 937 1550 / 1550 432 / 432 -562 / -562 Physical Exam Oriented: Other (Alert, answers yes or no with significant fatigue) Eyes: Normal Ear: Normal Nose: Normal Throat: Normal Respiratory: Diminished and Rales Cardiovascular: Normal : Normal Auscultation: Bowel Sounds: Normal Tenderness: Normal Skin: Normal Musculoskeletal: Normal Psychiatric: Normal Mood Description: Calm and Appropriate Affect: Normal Speech Pattern: Unclear Laboratory and Diagnostics Result Diagrams: 12/27/20 05:44 12/27/20 05:44 Labs: Laboratory WBC 16.9 X10^3/uL (3.6-10.0) H 12/27/20 05:44 RBC 5.30 X10^6/uL (4.7-6.0) 12/27/20 05:44 Hgb 16.3 g/dL (13.5-18.0) 12/27/20 05:44 Hct 47.1 % (42.0-54.0) 12/27/20 05:44 MCV 88.9 fL (80.0-100.0) 12/27/20 05:44 MCH 30.8 pg (27.0-34.0) 12/27/20 05:44 MCHC 34.6 g/dL (33.0-35.0) 12/27/20 05:44 RDW 14.1 % (11.6-16.5) 12/27/20 05:44 Plt Count 164 X10^3/uL (150.0-450.0) 12/27/20 05:44 Plt Count Comment Adequate (ADEQUATE) 12/27/20 05:44 MPV 10.2 fL (7.4-11.0) 12/27/20 05:44 Neut % (Auto) 96.0 % (42.0-75.0) H 12/27/20 05:44 Lymph % (Auto) 1.2 % (21.0-51.0) L 12/27/20 05:44 [place] % (Auto) 2.6 % (0.0-13.0) 12/27/20 05:44 Eos % (Auto) 0.0 % (0.9-2.9) L 12/27/20 05:44 Baso % (Auto) 0.2 % (0.2-1.0) 12/27/20 05:44 Neut # (Auto) 16.2 x10^3/uL (2.2-4.8) H 12/27/20 05:44 Lymph # (Auto) 0.2 X10^3/uL (1.3-2.9) L 12/27/20 05:44 [place] # (Auto) 0.4 x10^3/uL (0.3-0.8) 12/27/20 05:44 Eos # (Auto) 0.0 x10^3/uL (0.0-0.2) 12/27/20 05:44 Baso # (Auto) 0.0 X10^3/uL (0.0-0.1) 12/27/20 05:44 Absolute Nucleated RBC 0.1 /100WBC 12/27/20 05:44 Total Counted 100 12/27/20 05:44 Neutrophils % (Manual) 95 % (39-76) H 12/27/20 05:44 Band Neutrophils % 1 % (0-10) 12/27/20 05:44 Lymphocytes % (Manual) 1 % (13-43) L 12/27/20 05:44 Monocytes % (Manual) 2 % (4-9) L 12/27/20 05:44 Metamyelocytes % 1 12/27/20 05:44 Plt Morphology Comment Normal (NORMAL) 12/27/20 05:44 RBC Morphology Normal (NORMAL) 12/27/20 05:44 D-Dimer 3.60 ug/ml (0.0-0.57) H* 12/20/20 08:40 Sample Site Right brachial 12/24/20 11:20 ABG pH 7.600 (7.35-7.45) H* 12/24/20 11:20 ABG pCO2 27.0 mmHg (35.0-45.0) L 12/24/20 11:20 ABG pO2 51.0 mmHg (80.0-100.0) L 12/24/20 11:20 ABG HCO3 26.5 mmol/L (22-26) H 12/24/20 11:20 ABG O2 Saturation 92.0 % (90-100) 12/24/20 11:20 ABG Base Excess 5.6 mmol/L (-2.0-2.0) H 12/24/20 11:20 Andrew Test Na 12/24/20 11:20 A-a Gradient 272.0 mmHg 12/24/20 11:20 FiO2 50.0 12/24/20 11:20 Blood Gas Comments Daron well aw 12/24/20 11:20 Sodium 143 mmol/L (136-145) 12/27/20 05:44 Corrected Sodium 145 mmol/L (136-145) 12/27/20 05:44 Potassium 4.2 mmol/L (3.5-5.1) 12/27/20 05:44 Chloride 111 mmol/L (98-107) H 12/27/20 05:44 Carbon Dioxide 19.5 mmol/L (21-32) L 12/27/20 05:44 BUN 17 mg/dL (7-18) 12/27/20 05:44 Creatinine 0.86 mg/dL (0.70-1.30) 12/27/20 05:44 Est GFR (MDRD) Af Amer > 60 (>60) 12/27/20 05:44 Est GFR (MDRD) Non-Af > 60 (>60) 12/27/20 05:44 Glucose 199 mg/dL (65-99) H 12/27/20 05:44 POC Glucose (mg/dL) 177 mg/dL (65-99) H 12/27/20 05:05 Calcium 8.3 mg/dL (8.5-10.1) L 12/27/20 05:44 Corrected Calcium 10.1 mg/dL (8.5-10.1) 12/27/20 05:44 Magnesium 2.6 mg/dL (1.7-2.9) 12/25/20 05:53 Total Bilirubin 1.30 mg/dL (0.2-1.0) H 12/27/20 05:44 AST 26 Units/L (15-37) 12/27/20 05:44 ALT 32 Units/L (12-78) 12/27/20 05:44 Alkaline Phosphatase 68 Units/L (46-116) 12/27/20 05:44 Creatine Kinase 177 Units/L (39-308) 12/20/20 14:27 CK-MB (CK-2) < 1.0 ng/mL (0-4.0) 12/20/20 14:27 CK/CKMB % Calc 0.6 % (<4) 12/20/20 14:27 Troponin I < 0.02 ng/mL (0-1.5) 12/20/20 14:27 C-Reactive Protein 189.30 mg/L (0-3.0) H 12/27/20 05:44 Total Protein 7.0 g/dL (6.4-8.2) 12/27/20 05:44 Albumin 1.8 g/dL (3.4-5.0) L 12/27/20 05:44 Globulin 5.2 g/dL (2.5-4.5) H 12/27/20 05:44 Albumin/Globulin Ratio 0.3 Ratio (1.1-2.1) L 12/27/20 05:44 Lipase 185 Units/L (73-393) 12/19/20 19:01 Specimen Type Clean catch urine 12/20/20 02:17 Urine Color Dark yellow (YELLOW) 12/20/20 02:17 Urine Appearance Hazy (CLEAR) 12/20/20 02:17 Urine pH 6.0 (5.0 - 8.0) 12/20/20 02:17 Ur Specific [place] 1.015 (1.000-1.030) 12/20/20 02:17 Urine Protein 3+ (NEGATIVE) 12/20/20 02:17 Urine Glucose (UA) Negative (NEGATIVE) 12/20/20 02:17 Urine Ketones 2+ (NEGATIVE) 12/20/20 02:17 Urine Occult Blood 3+ (NEGATIVE) 12/20/20 02:17 Urine Nitrite Negative (NEGATIVE) 12/20/20 02:17 Urine Bilirubin 1+ (NEGATIVE) 12/20/20 02:17 Urine Urobilinogen 3+ (NORMAL) 12/20/20 02:17 Ur Leukocyte Esterase Negative (NEGATIVE) 12/20/20 02:17 Urine RBC 3-5 /HPF (0-3) A 12/20/20 02:17 Urine WBC 3-5 /HPF (0-5) 12/20/20 02:17 Ur Squamous Epith Cells Rare /HPF (NEGATIVE) 12/20/20 02:17 Urine Bacteria Trace /HPF (NEGATIVE) 12/20/20 02:17 Urine Mucus Few /HPF (NEGATIVE) 12/20/20 02:17 Urine Sperm Numerous /HPF (NEGATIVE) 12/20/20 02:17 Ur Culture Indicated? No/not indicated 12/20/20 02:17 SARS-CoV-2 (PCR) Positive (NEGATIVE) A 12/19/20 19:32 Influenza Type A (PCR) Negative (NEGATIVE) 12/19/20 19:32 Influenza Type B (PCR) Negative (NEGATIVE) 12/19/20 19:32 RSV (PCR) Negative (NEGATIVE) 12/19/20 19:32
[2020-12-28] MEDS: ASCORBIC ACID INJ MULTI-DOSE VIAL 1,500 MG in NS 100 ML IV 100 ML IV SCH ×4 (02:03→20:31)
[2020-12-28 05:11] LABS: BASOPHILS % (AUTO) 0.1 % (0.2-1.0); HEMATOCRIT 45.8 % (42.0-54.0); HEMOGLOBIN 15.5 g/dL (13.5-18.0); LYMPHOCYTES # (AUTO) 0.2 X10^3/uL (1.3-2.9); MEAN CORPUSCULAR HEMOGLOBIN 30.1 pg (27.0-34.0); MEAN CORPUSCULAR HGB CONC 33.8 g/dL (33.0-35.0); MEAN PLATELET VOLUME 10.7 fL (7.4-11.0); MONOCYTES # (AUTO) 0.6 x10^3/uL (0.3-0.8); MONOCYTES % (AUTO) 2.7 % (0.0-13.0); NEUTROPHILS # (AUTO) 19.9 x10^3/uL (2.2-4.8); NEUTROPHILS % (AUTO) 96.2 % (42.0-75.0); PLATELET COUNT 139 X10^3/uL (150.0-450.0); RED BLOOD COUNT 5.15 X10^6/uL (4.7-6.0); RED CELL DISTRIBUTION WIDTH 14.3 % (11.6-16.5); WHITE BLOOD COUNT 20.7 X10^3/uL (3.6-10.0)
[2020-12-28] MEDS: POTASSIUM CHLORIDE IV SCH ×2 (05:30)
[2020-12-28] MEDS: D5W IV SCH ×2 (05:30)
[2020-12-28] MEDS: KCL IV SCH ×2 (05:30)
[2020-12-28 05:38] LABS: ALANINE AMINOTRANSFERASE 30 Units/L (12-78); ALKALINE PHOSPHATASE 62 Units/L (46-116); ASPARTATE AMINO TRANSFERASE 32 Units/L (15-37); BLOOD UREA NITROGEN 17 mg/dL (7-18); CALCIUM 8.4 mg/dL (8.5-10.1); CARBON DIOXIDE 19.9 mmol/L (21-32); CHLORIDE 113 mmol/L (98-107); COR NA(FOR HYPERGLY) 145 mmol/L (136-145); SODIUM 144 mmol/L (136-145); TOTAL PROTEIN 6.8 g/dL (6.4-8.2); eGFR NON BLACK RACES > 60 (>60)
[2020-12-28 05:58] LABS: PLATELET MORPHOLOGY COMMENT NORMAL (NORMAL)
[2020-12-28 05:59] LABS: ALBUMIN 1.7 g/dL (3.4-5.0); COR CA(FOR HYPOALB) 10.2 mg/dL (8.5-10.1)
--- NOTE | 2020-12-28 07:57 | RAD ---
HISTORYPNEUMONIA F/USTUDYCHEST, 1 [id number]/07/2021FINDINGSVague patchy areas of opacity represent bronchopneumonia. Findings have improved since yesterday.No significant pleural effusion or pneumothorax.Heart size is normal.Bones are unremarkable.EKG leads are noted.IMPRESSION1. Improved bronchopneumoniaElectronically signed by: John Cortez (Dec 28, 2020 07:55:29)
[2020-12-28] MEDS: PULMICORT NEB TX 0.5 MG NEB SCH ×2 (10:05→21:43)
[2020-12-28] MEDS: BROVANA IN SCH ×2 (10:05→21:43)
[2020-12-28] MEDS: LEVAQUIN PREMIX IV 500 MG 500 MG/100 ML BAG IV SCH (10:58)
[2020-12-28] MEDS: SOLU-Medrol 125 MG VIAL IVP SCH (10:59)
[2020-12-28] MEDS: LOVENOX INJ 30 MG SYR SC SCH ×2 (10:59→20:32)
[2020-12-28] MEDS: PEPCID TAB 40 MG PO SCH (10:59)
[2020-12-28] MEDS: NYSTATIN SUSP PO SCH ×4 (10:59→20:34)
[2020-12-28] MEDS: ZINC SULFATE PO SCH (11:00)
[2020-12-28] MEDS: THIAMINE HCL INJ IVP SCH ×2 (11:00→20:31)
[2020-12-28] MEDS: VANCOMYCIN IV *PREMIX 1 G/200 ML BAG 1 G/200 ML PIGGYBACK IV SCH ×2 (11:00→21:27)
[2020-12-28] MEDS: VITAMIN A PO SCH (11:00)
[2020-12-28] MEDS: VITAMIN D3 125 mcg (5,000 UNITS) PO SCH (11:01)
--- NOTE | 2020-12-28 14:58 | PCM.PROG ---
Progress Note Progress Note for Day of Date of Exam: 12/28/20 Subjective Subjective: Pt is a 80 year old male past medical history alcohol use disorder admitted for Covid-19 pneumonia with hypoxia. Patient's mental status is that he arouses and will be awake at times but not able to communicate or eat. He is currently utilizing 6L nasal cannula supplemental oxygen. Labs/imaging: Wbc 20.7, Hgb 15.5, Plt 139, Na 144, K 4.5, Creatinine 0.70, Glucose 138, CRP 202, CXR: Vague patchy areas of opacity represent bronchopneumonia. Findings have improved since yesterday. Pt is currently on pneumonia treatment protocol that includes: IVF D5W+20KCL@75ml/h, Remdesivir, Solumedrol 80mg q12h, scheduled Bronchodilators, Antibiotics: Vancomycin, Levaquin, Lovenox 30mg BID, IV thiamin e 200mg BID, immune supporting supplements, supplemental O2, I/S, Respiratory therapy consult, Pneumonia protocol. General surgery consulted for soft tissue edema of face and neck. Recommend clindamycin, add IV Clindamycin 600mg TID. Will taper steroids to Solumedrol 40mg q12h. Wean/titrate oxygen as tolerated. Pt unable to be still even with IV medications for MRI brain to be performed, will hold and reschedule when appropriate. Add TPN nutrition. Will need central line placement tomorrow. Continue to monitor closely and follow up labs/imaging. Time spent on clinical assessment, reviewing labs and imaging, decision making, and documentation greater than 45 minutes. Past Medical Family Social History Past Med/Fam/Surg Hx: No changes since H&P Allergies: Allergies Penicillins Allergy (Verified 12/20/20 14:17) Review of Systems ROS: No change since H&P Vital Signs and I&O's Vital Signs: Temperature 98.5 F Pulse Rate [Left Brachial] 81 Pulse Rate 113 Respiratory Rate 32 Blood Pressure [Left Arm] 130/72 Blood Pressure 145/96 O2 Sat by Pulse Oximetry 88 Intake and Output: Intake & Output 12/25/20 12/26/20 12/27/20 12/28/20 23:59 23:59 23:59 23:59 Intake Total 2350 / 2350 2 / 2032 1732 / 1732 566 / 566 Output Total 800 / 800 1600 / 1600 1650 / 1650 775 / 775 Balance 1550 / 1550 432 / 432 82 / 82 -209 / -209 Physical Exam Oriented: Other (Alert, answers yes or no with significant fatigue) Eyes: Normal Ear: Normal Nose: Normal Throat: Normal Respiratory: Diminished and Rales Cardiovascular: Normal : Normal Auscultation: Bowel Sounds: Normal Tenderness: Normal Skin: Normal Musculoskeletal: Normal Psychiatric: Normal Mood Description: Calm and Appropriate Affect: Normal Speech Pattern: Unclear Laboratory and Diagnostics Result Diagrams: 12/28/20 04:30 12/28/20 04:30 Labs: Laboratory WBC 20.7 X10^3/uL (3.6-10.0) H 12/28/20 04:30 RBC 5.15 X10^6/uL (4.7-6.0) 12/28/20 04:30 Hgb 15.5 g/dL (13.5-18.0) 12/28/20 04:30 Hct 45.8 % (42.0-54.0) 12/28/20 04:30 MCV 89.0 fL (80.0-100.0) 12/28/20 04:30 MCH 30.1 pg (27.0-34.0) 12/28/20 04:30 MCHC 33.8 g/dL (33.0-35.0) 12/28/20 04:30 RDW 14.3 % (11.6-16.5) 12/28/20 04:30 Plt Count 139 X10^3/uL (150.0-450.0) L 12/28/20 04:30 Plt Count Comment Decreased (ADEQUATE) 12/28/20 04:30 MPV 10.7 fL (7.4-11.0) 12/28/20 04:30 Neut % (Auto) 96.2 % (42.0-75.0) H 12/28/20 04:30 Lymph % (Auto) 1.0 % (21.0-51.0) L 12/28/20 04:30 [place] % (Auto) 2.7 % (0.0-13.0) 12/28/20 04:30 Eos % (Auto) 0.0 % (0.9-2.9) L 12/28/20 04:30 Baso % (Auto) 0.1 % (0.2-1.0) L 12/28/20 04:30 Neut # (Auto) 19.9 x10^3/uL (2.2-4.8) H 12/28/20 04:30 Lymph # (Auto) 0.2 X10^3/uL (1.3-2.9) L 12/28/20 04:30 [place] # (Auto) 0.6 x10^3/uL (0.3-0.8) 12/28/20 04:30 Eos # (Auto) 0.0 x10^3/uL (0.0-0.2) 12/28/20 04:30 Baso # (Auto) 0.0 X10^3/uL (0.0-0.1) 12/28/20 04:30 Absolute Nucleated RBC 0.0 /100WBC 12/28/20 04:30 Total Counted 100 12/28/20 04:30 Neutrophils % (Manual) 100 % (39-76) H 12/28/20 04:30 Band Neutrophils % 1 % (0-10) 12/27/20 05:44 Lymphocytes % (Manual) Not Reportable 12/28/20 04:30 Monocytes % (Manual) 2 % (4-9) L 12/27/20 05:44 Metamyelocytes % 1 12/27/20 05:44 Plt Morphology Comment Normal (NORMAL) 12/28/20 04:30 RBC Morphology Normal (NORMAL) 12/28/20 04:30 D-Dimer 3.60 ug/ml (0.0-0.57) H* 12/20/20 08:40 Sample Site Right brachial 12/24/20 11:20 ABG pH 7.600 (7.35-7.45) H* 12/24/20 11:20 ABG pCO2 27.0 mmHg (35.0-45.0) L 12/24/20 11:20 ABG pO2 51.0 mmHg (80.0-100.0) L 12/24/20 11:20 ABG HCO3 26.5 mmol/L (22-26) H 12/24/20 11:20 ABG O2 Saturation 92.0 % (90-100) 12/24/20 11:20 ABG Base Excess 5.6 mmol/L (-2.0-2.0) H 12/24/20 11:20 Andrew Test Na 12/24/20 11:20 A-a Gradient 272.0 mmHg 12/24/20 11:20 FiO2 50.0 12/24/20 11:20 Blood Gas Comments Daron well aw 12/24/20 11:20 Sodium 144 mmol/L (136-145) 12/28/20 04:30 Corrected Sodium 145 mmol/L (136-145) 12/28/20 04:30 Potassium 4.5 mmol/L (3.5-5.1) 12/28/20 04:30 Chloride 113 mmol/L (98-107) H 12/28/20 04:30 Carbon Dioxide 19.9 mmol/L (21-32) L 12/28/20 04:30 BUN 17 mg/dL (7-18) 12/28/20 04:30 Creatinine 0.70 mg/dL (0.70-1.30) 12/28/20 04:30 Est GFR (MDRD) Af Amer > 60 (>60) 12/28/20 04:30 Est GFR (MDRD) Non-Af > 60 (>60) 12/28/20 04:30 Glucose 138 mg/dL (65-99) H 12/28/20 04:30 POC Glucose (mg/dL) 102 mg/dL (65-99) H 12/28/20 11:52 Calcium 8.4 mg/dL (8.5-10.1) L 12/28/20 04:30 Corrected Calcium 10.2 mg/dL (8.5-10.1) H 12/28/20 04:30 Magnesium 2.6 mg/dL (1.7-2.9) 12/25/20 05:53 Total Bilirubin 1.20 mg/dL (0.2-1.0) H 12/28/20 04:30 AST 32 Units/L (15-37) 12/28/20 04:30 ALT 30 Units/L (12-78) 12/28/20 04:30 Alkaline Phosphatase 62 Units/L (46-116) 12/28/20 04:30 Creatine Kinase 177 Units/L (39-308) 12/20/20 14:27 CK-MB (CK-2) < 1.0 ng/mL (0-4.0) 12/20/20 14:27 CK/CKMB % Calc 0.6 % (<4) 12/20/20 14:27 Troponin I < 0.02 ng/mL (0-1.5) 12/20/20 14:27 C-Reactive Protein 202.80 mg/L (0-3.0) H 12/28/20 04:30 Total Protein 6.8 g/dL (6.4-8.2) 12/28/20 04:30 Albumin 1.7 g/dL (3.4-5.0) L 12/28/20 04:30 Globulin 5.1 g/dL (2.5-4.5) H 12/28/20 04:30 Albumin/Globulin Ratio 0.3 Ratio (1.1-2.1) L 12/28/20 04:30 Lipase 185 Units/L (73-393) 12/19/20 19:01 Specimen Type Clean catch urine 12/20/20 02:17 Urine Color Dark yellow (YELLOW) 12/20/20 02:17 Urine Appearance Hazy (CLEAR) 12/20/20 02:17 Urine pH 6.0 (5.0 - 8.0) 12/20/20 02:17 Ur Specific [place] 1.015 (1.000-1.030) 12/20/20 02:17 Urine Protein 3+ (NEGATIVE) 12/20/20 02:17 Urine Glucose (UA) Negative (NEGATIVE) 12/20/20 02:17 Urine Ketones 2+ (NEGATIVE) 12/20/20 02:17 Urine Occult Blood 3+ (NEGATIVE) 12/20/20 02:17 Urine Nitrite Negative (NEGATIVE) 12/20/20 02:17 Urine Bilirubin 1+ (NEGATIVE) 12/20/20 02:17 Urine Urobilinogen 3+ (NORMAL) 12/20/20 02:17 Ur Leukocyte Esterase Negative (NEGATIVE) 12/20/20 02:17 Urine RBC 3-5 /HPF (0-3) A 12/20/20 02:17 Urine WBC 3-5 /HPF (0-5) 12/20/20 02:17 Ur Squamous Epith Cells Rare /HPF (NEGATIVE) 12/20/20 02:17 Urine Bacteria Trace /HPF (NEGATIVE) 12/20/20 02:17 Urine Mucus Few /HPF (NEGATIVE) 12/20/20 02:17 Urine Sperm Numerous /HPF (NEGATIVE) 12/20/20 02:17 Ur Culture Indicated? No/not indicated 12/20/20 02:17 SARS-CoV-2 (PCR) Positive (NEGATIVE) A 12/19/20 19:32 Influenza Type A (PCR) Negative (NEGATIVE) 12/19/20 19:32 Influenza Type B (PCR) Negative (NEGATIVE) 12/19/20 19:32 RSV (PCR) Negative (NEGATIVE) 12/19/20 19:32
[2020-12-28] MEDS ORDERED: DEXTROSE 10% 1,000 ML IV PRN (16:09)
[2020-12-28] MEDS: CLINIMIX IV SCH ×3 (16:36)
[2020-12-28] MEDS: MVI IV SCH ×3 (16:36)
[2020-12-28] MEDS: [UNRECOGNIZED DRUG - OTHER] IV SCH ×3 (16:36)
[2020-12-28] MEDS ORDERED: CLEOCIN 600 MG IV PREMIX 600 MG/50 ML BAG IV ONE (19:03)
[2020-12-28] MEDS ORDERED: BROVANA ONE (19:54)
[2020-12-28] MEDS ORDERED: PULMICORT NEB TX 0.5 MG NEB ONE (19:54)
[2020-12-28] MEDS ORDERED: PHARMACY COMMENT IV ONE (20:30)
[2020-12-28] MEDS: SOLU-Medrol 40 MG VIAL IVP SCH (20:34)
[2020-12-28 21:05] LABS: CREATININE 0.84 mg/dL (0.70-1.30); VANCOMYCIN,TROUGH 12.8 ug/mL (15-20)
[2020-12-28] MEDS: CLEOCIN 600 MG IV PREMIX 600 MG/50 ML BAG IV SCH (21:28)
[2020-12-29] MEDS: ASCORBIC ACID INJ MULTI-DOSE VIAL 1,500 MG in NS 100 ML IV 100 ML IV SCH ×2 (03:00→08:44)
[2020-12-29] MEDS: CLINIMIX IV SCH ×8 (05:13→14:57)
[2020-12-29] MEDS: MVI IV SCH ×8 (05:13→14:57)
[2020-12-29] MEDS: [UNRECOGNIZED DRUG - OTHER] IV SCH ×3 (05:13)
[2020-12-29] MEDS: CLEOCIN 600 MG IV PREMIX 600 MG/50 ML BAG IV SCH ×3 (05:14→21:27)
[2020-12-29 05:24] LABS: ALANINE AMINOTRANSFERASE 38 Units/L (12-78); ALBUMIN 1.5 g/dL (3.4-5.0); ALKALINE PHOSPHATASE 66 Units/L (46-116); ASPARTATE AMINO TRANSFERASE 34 Units/L (15-37); BLOOD UREA NITROGEN 21 mg/dL (7-18); CALCIUM 7.9 mg/dL (8.5-10.1); CARBON DIOXIDE 20.7 mmol/L (21-32); CHLORIDE 113 mmol/L (98-107); COR CA(FOR HYPOALB) 9.9 mg/dL (8.5-10.1); COR NA(FOR HYPERGLY) 145 mmol/L (136-145); MAGNESIUM 2.6 mg/dL (1.7-2.9); PHOSPHORUS 3.9 mg/dL (2.6-4.7); PREALBUMIN 12.7 mg/dL (18-35.7); SODIUM 144 mmol/L (136-145); TOTAL PROTEIN 6.5 g/dL (6.4-8.2); TRIGLYCERIDES 21 mg/dL (0-150); eGFR NON BLACK RACES > 60 (>60)
[2020-12-29 05:40] LABS: BASOPHILS % (AUTO) 0.3 % (0.2-1.0); HEMOGLOBIN 14.5 g/dL (13.5-18.0); LYMPHOCYTES # (AUTO) 0.2 X10^3/uL (1.3-2.9); MEAN CORPUSCULAR HEMOGLOBIN 30.6 pg (27.0-34.0); MEAN CORPUSCULAR HGB CONC 33.6 g/dL (33.0-35.0); MEAN PLATELET VOLUME 10.7 fL (7.4-11.0); MONOCYTES # (AUTO) 0.4 x10^3/uL (0.3-0.8); MONOCYTES % (AUTO) 2.6 % (0.0-13.0); NEUTROPHILS # (AUTO) 15.8 x10^3/uL (2.2-4.8); NEUTROPHILS % (AUTO) 96.1 % (42.0-75.0); PLATELET COUNT 111 X10^3/uL (150.0-450.0); RED BLOOD COUNT 4.72 X10^6/uL (4.7-6.0); RED CELL DISTRIBUTION WIDTH 14.3 % (11.6-16.5); WHITE BLOOD COUNT 16.4 X10^3/uL (3.6-10.0)
[2020-12-29 06:21] LABS: BAND NEUTROPHILS % 1 % (0-10); PLATELET MORPHOLOGY COMMENT NORMAL (NORMAL)
--- NOTE | 2020-12-29 08:06 | RAD ---
HISTORYPNEUMONIA F/USTUDYCHEST, 1 [id number]/08/2021FINDINGSPatchy areas of opacity are present in the right lung base and left perihilar region consistent with bronchopneumonia. Findings on the right side have progressed. Findings on the left side have improved.No pleural effusion or pneumothorax.Heart size is normal.Bones are unremarkable.EKG leads are noted.IMPRESSION1. BronchopneumoniaElectronically signed by: John Cortez (Dec 29, 2020 08:04:24)
[2020-12-29] MEDS: LOVENOX INJ 30 MG SYR SC SCH ×2 (08:44→20:25)
[2020-12-29] MEDS: PROTONIX INJ 40 MG VIAL IVP SCH (08:44)
[2020-12-29] MEDS: THIAMINE HCL INJ IVP SCH ×2 (08:45→20:28)
[2020-12-29] MEDS: SOLU-Medrol 40 MG VIAL IVP SCH ×2 (08:45→20:27)
[2020-12-29] MEDS: VANCOMYCIN IV *PREMIX 1 G/200 ML BAG 1 G/200 ML PIGGYBACK IV SCH ×2 (08:46→20:25)
[2020-12-29] MEDS: BROVANA IN SCH ×2 (09:30→20:26)
[2020-12-29] MEDS: PULMICORT NEB TX 0.5 MG NEB SCH ×2 (09:30→20:26)
[2020-12-29] MEDS: VITAMIN D3 125 mcg (5,000 UNITS) PO SCH (10:00)
[2020-12-29] MEDS: NYSTATIN SUSP PO SCH ×4 (10:00→20:28)
[2020-12-29] MEDS ORDERED: ATIVAN INJ 2 MG VIAL IVP ONE (13:01)
[2020-12-29] MEDS ORDERED: ATIVAN INJ 2 MG VIAL ONE (13:13)
[2020-12-29] MEDS: [UNRECOGNIZED DRUG - OTHER] IV SCH ×5 (14:57)
--- NOTE | 2020-12-29 15:42 | MRI ---
HISTORYAMSSTUDYMRA HEAD without IV contrastCOMPARISONNoneTECHNIQUE3-D [id number] imaging of the intracranial circulation was performed with MIP reconstructions.IV contrast was not administered.FINDINGSMotion limits the study despite repeat imaging. No distal vertebral or basilar artery stenosis is suggested. No definite PERSONNEL RESEARCH PSYCHOLOGIST stenosis but motion related artifacts limit evaluation of P2 and P3 segments.Probable mild stenoses in the cavernous and supraclinoid ICAs causing less than 50 percent stenosis. ACAs are very poorly visualized due to artifacts. No ADITHYA occlusion is suggested. Anterior communicating artery is not identified but may be obscured due to motion. Motion likely causes artifactual areas of narrowing and nonvisualization in the MCAs, right greater than left. No suggestion of a large aneurysm.IMPRESSIONMotion limits the study. Areas of mild stenosis are suspected in the distal ICAs. No obvious vascular occlusion is seen but distal branches are not well evaluated.Electronically signed by: Jonathan Almaraz (Dec 29, 2020 15:41:01)
--- NOTE | 2020-12-29 15:56 | MRI ---
HISTORYAMSSTUDYMRI brain without IV contrastCOMPARISONFacial CT 12/26/2020TECHNIQUEMultiplanar multi-sequence MRI of the brain was obtained without administration of IV contrast.FINDINGSMotion limits the study. The cerebellar tonsils are normally positioned. Pituitary gland is normal in size. [Prominent diffuse volume loss in the brain with compensatory enlargement of the ventricular system.]No restricted diffusion is seen in the brain. Confluent increased T2 signal is seen in the supratentorial white matter which may be due to chronic small vessel ischemic changes or encephalopathy. [No evidence of intracranial hemorrhage.]Small air-fluid levels are seen in the left maxillary and sphenoid sinuses. There is a T1 and T2 hyperintense nodule or cyst in the right nasal passageway. It measures 2.3 x 2.1 cm. It appears appears likely solid on CT. It likely has mild bony erosion suggesting it is slow growing benign tumor. 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
[2020-12-30] MEDS: [UNRECOGNIZED DRUG - OTHER] IV SCH ×15 (05:05→21:35)
[2020-12-30] MEDS: MVI IV SCH ×15 (05:05→21:35)
[2020-12-30] MEDS: CLEOCIN 600 MG IV PREMIX 600 MG/50 ML BAG IV SCH ×3 (05:05→23:15)
[2020-12-30] MEDS: CLINIMIX IV SCH ×15 (05:05→21:35)
[2020-12-30 06:12] LABS: BASOPHILS % (AUTO) 0.1 % (0.2-1.0); HEMATOCRIT 41.1 % (42.0-54.0); HEMOGLOBIN 13.7 g/dL (13.5-18.0); LYMPHOCYTES # (AUTO) 0.2 X10^3/uL (1.3-2.9); MEAN CORPUSCULAR HEMOGLOBIN 30.3 pg (27.0-34.0); MEAN CORPUSCULAR HGB CONC 33.4 g/dL (33.0-35.0); MEAN CORPUSCULAR VOLUME 90.8 fL (80.0-100.0); MEAN PLATELET VOLUME 11.4 fL (7.4-11.0); MONOCYTES # (AUTO) 0.3 x10^3/uL (0.3-0.8); MONOCYTES % (AUTO) 2.9 % (0.0-13.0); NEUTROPHILS # (AUTO) 9.7 x10^3/uL (2.2-4.8); PLATELET COUNT 96 X10^3/uL (150.0-450.0); RED BLOOD COUNT 4.53 X10^6/uL (4.7-6.0); RED CELL DISTRIBUTION WIDTH 14.2 % (11.6-16.5); WHITE BLOOD COUNT 10.2 X10^3/uL (3.6-10.0)
[2020-12-30 06:29] LABS: ALANINE AMINOTRANSFERASE 89 Units/L (12-78); ALBUMIN 1.5 g/dL (3.4-5.0); ALKALINE PHOSPHATASE 74 Units/L (46-116); ASPARTATE AMINO TRANSFERASE 57 Units/L (15-37); BLOOD UREA NITROGEN 30 mg/dL (7-18); CALCIUM 8.1 mg/dL (8.5-10.1); CARBON DIOXIDE 18.9 mmol/L (21-32); CHLORIDE 112 mmol/L (98-107); COR CA(FOR HYPOALB) 10.1 mg/dL (8.5-10.1); COR NA(FOR HYPERGLY) 143 mmol/L (136-145); CREATININE 1.04 mg/dL (0.70-1.30); SODIUM 142 mmol/L (136-145); TOTAL PROTEIN 6.6 g/dL (6.4-8.2); eGFR NON BLACK RACES > 60 (>60)
[2020-12-30 07:19] LABS: BAND NEUTROPHILS % 1 % (0-10); GIANT PLATELET RARE; PLATELET MORPHOLOGY COMMENT ABNORMAL (NORMAL)
--- NOTE | 2020-12-30 07:59 | RAD ---
HISTORYPNEUMONIA F/USTUDYCHEST, 1 [id number]/09/2021FINDINGSVague patchy areas of opacity in the lungs are consistent with bronchopneumonia. There may be a slight progression since yesterday.No pleural effusion or pneumothorax.Heart size is normal.Bones are unremarkable.EKG leads are noted.IMPRESSION1. Unchanged bronchopneumoniaElectronically signed by: John Cortez (Dec 30, 2020 07:58:11)
[2020-12-30] MEDS: BROVANA IN SCH ×2 (08:00→20:45)
[2020-12-30] MEDS: PULMICORT NEB TX 0.5 MG NEB SCH ×2 (08:10→20:45)
[2020-12-30] MEDS: LOVENOX INJ 30 MG SYR SC SCH ×2 (08:54→21:33)
[2020-12-30] MEDS: VANCOMYCIN IV *PREMIX 1 G/200 ML BAG 1 G/200 ML PIGGYBACK IV SCH ×2 (08:55→23:02)
[2020-12-30] MEDS: NYSTATIN SUSP PO SCH ×4 (08:55→21:34)
[2020-12-30] MEDS: PROTONIX INJ 40 MG VIAL IVP SCH (08:55)
[2020-12-30] MEDS: THIAMINE HCL INJ IVP SCH ×2 (08:55→21:34)
[2020-12-30] MEDS: SOLU-Medrol 40 MG VIAL IVP SCH ×2 (08:55→21:34)
[2020-12-30] MEDS: VITAMIN D3 125 mcg (5,000 UNITS) PO SCH (08:56)
--- NOTE | 2020-12-30 10:13 | PCM.PROG ---
Progress Note Progress Note for Day of Date of Exam: 12/30/20 Subjective Subjective: Pt is a 80 year old male past medical history alcohol use disorder admitted for Covid-19 pneumonia with hypoxia. This morning patient is in bed, no change in status compared to yesterday. He is currently utilizing 6L nasal cannula supplemental oxygen. Labs/imaging: Wbc 16.4, Hgb 14.5, Plt 111, Na 144, K 4.2, Creatinine 0.90, Glucose 160, CRP 205, CXR: Patchy areas of opacity are present in the right lung base and left perihilar region consistent with bronchopneumonia. Findings on the right side have progressed. Findings on the left side have improved. Pt is currently on pneumonia treatment protocol that includes: IVF D5W+20KCL@50ml/h, Remdesivir, Solumedrol 40mg q12h, scheduled Bronchodilators, Antibiotics: IV Vancomycin, Levaquin, Clindamycin, Lovenox 30mg BID, IV thiamine 200mg BID, TPN for nutrition, Blood cultures pending, immune supporting supplements, supplemental O2, I/S, Respiratory therapy consult, Pneumonia protocol. Wean/titrate oxygen as tolerated. Will attempt today for MRI/MRA of brain. Continue to monitor closely and follow up labs/imaging. Time spent on clinical assessment, reviewing labs and imaging, decision making, and documentation greater than 45 minutes. Past Medical Family Social History Past Med/Fam/Surg Hx: No changes since H&P Allergies: Allergies Penicillins Allergy (Verified 12/20/20 14:17) Review of Systems ROS: No change since H&P Vital Signs and I&O's Vital Signs: Temperature 97.2 F Pulse Rate [Left Brachial] 81 Pulse Rate 75 Respiratory Rate 20 Blood Pressure [Left Arm] 130/72 Blood Pressure 145/78 O2 Sat by Pulse Oximetry 90 Intake and Output: Intake & Output 12/27/20 12/28/20 12/29/20 12/30/20 23:59 23:59 23:59 23:59 Intake Total 1732 / 1732 1188 / 1188 1210 / 1210 468 / 468 Output Total 1650 / 1650 2200 / 2200 2150 / 2150 800 / 800 Balance 82 / 82 -1012 / -1012 -940 / -940 -332 / -332 Physical Exam Oriented: Other (Somnolent) Eyes: Normal Ear: Normal Nose: Normal Throat: Normal Respiratory: Diminished and Rales Cardiovascular: Normal : Normal Auscultation: Bowel Sounds: Normal Tenderness: Normal Skin: Normal Musculoskeletal: Normal Laboratory and Diagnostics Result Diagrams: 12/30/20 05:20 12/30/20 05:20 Labs: 12/28/20 09:00 Blood Blood Culture - Preliminary Laboratory WBC 10.2 X10^3/uL (3.6-10.0) H 12/30/20 05:20 RBC 4.53 X10^6/uL (4.7-6.0) L 12/30/20 05:20 Hgb 13.7 g/dL (13.5-18.0) 12/30/20 05:20 Hct 41.1 % (42.0-54.0) L 12/30/20 05:20 MCV 90.8 fL (80.0-100.0) 12/30/20 05:20 MCH 30.3 pg (27.0-34.0) 12/30/20 05:20 MCHC 33.4 g/dL (33.0-35.0) 12/30/20 05:20 RDW 14.2 % (11.6-16.5) 12/30/20 05:20 Plt Count 96 X10^3/uL (150.0-450.0) L 12/30/20 05:20 Plt Count Comment Decreased (ADEQUATE) 12/30/20 05:20 MPV 11.4 fL (7.4-11.0) H 12/30/20 05:20 Neut % (Auto) 95.0 % (42.0-75.0) H 12/30/20 05:20 Lymph % (Auto) 2.0 % (21.0-51.0) L 12/30/20 05:20 [place] % (Auto) 2.9 % (0.0-13.0) 12/30/20 05:20 Eos % (Auto) 0.0 % (0.9-2.9) L 12/30/20 05:20 Baso % (Auto) 0.1 % (0.2-1.0) L 12/30/20 05:20 Neut # (Auto) 9.7 x10^3/uL (2.2-4.8) H 12/30/20 05:20 Lymph # (Auto) 0.2 X10^3/uL (1.3-2.9) L 12/30/20 05:20 [place] # (Auto) 0.3 x10^3/uL (0.3-0.8) 12/30/20 05:20 Eos # (Auto) 0.0 x10^3/uL (0.0-0.2) 12/30/20 05:20 Baso # (Auto) 0.0 X10^3/uL (0.0-0.1) 12/30/20 05:20 Absolute Nucleated RBC 0.1 /100WBC 12/30/20 05:20 Total Counted 100 12/30/20 05:20 Neutrophils % (Manual) 94 % (39-76) H 12/30/20 05:20 Band Neutrophils % 1 % (0-10) 12/30/20 05:20 Lymphocytes % (Manual) 3 % (13-43) L 12/30/20 05:20 Monocytes % (Manual) 2 % (4-9) L 12/30/20 05:20 Metamyelocytes % 1 12/27/20 05:44 Giant Platelets Rare 12/30/20 05:20 Plt Morphology Comment Abnormal (NORMAL) 12/30/20 05:20 RBC Morphology Normal (NORMAL) 12/30/20 05:20 D-Dimer 3.60 ug/ml (0.0-0.57) H* 12/20/20 08:40 Sample Site Right brachial 12/24/20 11:20 ABG pH 7.600 (7.35-7.45) H* 12/24/20 11:20 ABG pCO2 27.0 mmHg (35.0-45.0) L 12/24/20 11:20 ABG pO2 51.0 mmHg (80.0-100.0) L 12/24/20 11:20 ABG HCO3 26.5 mmol/L (22-26) H 12/24/20 11:20 ABG O2 Saturation 92.0 % (90-100) 12/24/20 11:20 ABG Base Excess 5.6 mmol/L (-2.0-2.0) H 12/24/20 11:20 Andrew Test Na 12/24/20 11:20 A-a Gradient 272.0 mmHg 12/24/20 11:20 FiO2 50.0 12/24/20 11:20 Blood Gas Comments Daron well aw 12/24/20 11:20 Sodium 142 mmol/L (136-145) 12/30/20 05:20 Corrected Sodium 143 mmol/L (136-145) 12/30/20 05:20 Potassium 4.5 mmol/L (3.5-5.1) 12/30/20 05:20 Chloride 112 mmol/L (98-107) H 12/30/20 05:20 Carbon Dioxide 18.9 mmol/L (21-32) L 12/30/20 05:20 BUN 30 mg/dL (7-18) H 12/30/20 05:20 Creatinine 1.04 mg/dL (0.70-1.30) 12/30/20 05:20 Est GFR (MDRD) Af Amer > 60 (>60) 12/30/20 05:20 Est GFR (MDRD) Non-Af > 60 (>60) 12/30/20 05:20 Glucose 138 mg/dL (65-99) H 12/30/20 05:20 POC Glucose (mg/dL) 114 mg/dL (65-99) H 12/29/20 11:10 Calcium 8.1 mg/dL (8.5-10.1) L 12/30/20 05:20 Corrected Calcium 10.1 mg/dL (8.5-10.1) 12/30/20 05:20 Phosphorus 3.9 mg/dL (2.6-4.7) 12/29/20 04:30 Magnesium 2.6 mg/dL (1.7-2.9) 12/29/20 04:30 Total Bilirubin 1.10 mg/dL (0.2-1.0) H 12/30/20 05:20 AST 57 Units/L (15-37) H 12/30/20 05:20 ALT 89 Units/L (12-78) H 12/30/20 05:20 Alkaline Phosphatase 74 Units/L (46-116) 12/30/20 05:20 Creatine Kinase 177 Units/L (39-308) 12/20/20 14:27 CK-MB (CK-2) < 1.0 ng/mL (0-4.0) 12/20/20 14:27 CK/CKMB % Calc 0.6 % (<4) 12/20/20 14:27 Troponin I < 0.02 ng/mL (0-1.5) 12/20/20 14:27 C-Reactive Protein 93.50 mg/L (0-3.0) H 12/30/20 05:20 Total Protein 6.6 g/dL (6.4-8.2) 12/30/20 05:20 Albumin 1.5 g/dL (3.4-5.0) L 12/30/20 05:20 Globulin 5.1 g/dL (2.5-4.5) H 12/30/20 05:20 Albumin/Globulin Ratio 0.3 Ratio (1.1-2.1) L 12/30/20 05:20 Prealbumin 12.7 mg/dL (18-35.7) L 12/29/20 04:30 Triglycerides 21 mg/dL (0-150) 12/29/20 04:30 Lipase 185 Units/L (73-393) 12/19/20 19:01 Specimen Type Clean catch urine 12/20/20 02:17 Urine Color Dark yellow (YELLOW) 12/20/20 02:17 Urine Appearance Hazy (CLEAR) 12/20/20 02:17 Urine pH 6.0 (5.0 - 8.0) 12/20/20 02:17 Ur Specific [place] 1.015 (1.000-1.030) 12/20/20 02:17 Urine Protein 3+ (NEGATIVE) 12/20/20 02:17 Urine Glucose (UA) Negative (NEGATIVE) 12/20/20 02:17 Urine Ketones 2+ (NEGATIVE) 12/20/20 02:17 Urine Occult Blood 3+ (NEGATIVE) 12/20/20 02:17 Urine Nitrite Negative (NEGATIVE) 12/20/20 02:17 Urine Bilirubin 1+ (NEGATIVE) 12/20/20 02:17 Urine Urobilinogen 3+ (NORMAL) 12/20/20 02:17 Ur Leukocyte Esterase Negative (NEGATIVE) 12/20/20 02:17 Urine RBC 3-5 /HPF (0-3) A 12/20/20 02:17 Urine WBC 3-5 /HPF (0-5) 12/20/20 02:17 Ur Squamous Epith Cells Rare /HPF (NEGATIVE) 12/20/20 02:17 Urine Bacteria Trace /HPF (NEGATIVE) 12/20/20 02:17 Urine Mucus Few /HPF (NEGATIVE) 12/20/20 02:17 Urine Sperm Numerous /HPF (NEGATIVE) 12/20/20 02:17 Ur Culture Indicated? No/not indicated 12/20/20 02:17 Vancomycin Trough 12.8 ug/mL (15-20) L 12/28/20 20:30 SARS-CoV-2 (PCR) Positive (NEGATIVE) A 12/19/20 19:32 Influenza Type A (PCR) Negative (NEGATIVE) 12/19/20 19:32 Influenza Type B (PCR) Negative (NEGATIVE) 12/19/20 19:32 RSV (PCR) Negative (NEGATIVE) 12/19/20 19:32 Plan (1) COVID: Status: Acute (2) Acute respiratory distress: Status: Acute (3) Pneumonia due to COVID-19 virus: Status: Acute
--- NOTE | 2020-12-30 13:57 | PCM.PROG ---
Progress Note Progress Note for Day of Date of Exam: 12/30/20 Subjective Subjective: Pt is a 80 year old male past medical history alcohol use disorder admitted for Covid-19 pneumonia with hypoxia. This morning patient is in bed without much change in mental status and with worsening hypoxia. He is currently utilizing 6L nasal cannula supplemental oxygen. Labs/imaging: Wbc 10.2, Hgb 13.7, Plt 96, Na 142, K 4.5, Creatinine 1.04, Glucose 138, CRP 93, Blood cultures: prelim coagulase negative staph, MRI/MRA of the brain was obtained that revealed: Prominent confluent increased T2 signal is seen in the supratentorial white matter possibly due to chronic small vessel ischemic changes or other cause of encephalopathy. Prominent diffuse volume loss is seen in the brain. 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 Restricted diffusion in the left parotid gland is likely due to involvement by infection. CXR: Vague patchy areas of opacity in the lungs are consistent with bronchopneumonia. There may be a slight progression since yesterday. Pt is currently on pneumonia treatment protocol that includes: IVF D5W+20KCL@50ml/h, Remdesivir, Solumedrol 40mg q12h, scheduled Bronchodilators, Antibiotics: IV Vancomycin, Levaquin, Clindamycin, Lovenox 30mg BID, IV thiamine 200mg BID, TPN for nutrition, immune supporting supplements, supplemental O2, I/S, Respiratory therapy consult, Pneumonia protocol. Wean/titrate oxygen as tolerated. Discussed extensively with daughter patient's hospital course and poor prognosis if respiratory and mental status do not improve. Daughter verbalized understanding. She does want patient to receive all available treatments and remain full code. Continue to monitor closely and follow up labs/imaging. Time spent on clinical assessment, reviewing labs and imaging, decision making, and documentation greater than 45 minutes. Past Medical Family Social History Past Med/Fam/Surg Hx: No changes since H&P Allergies: Allergies Penicillins Allergy (Verified 12/20/20 14:17) Review of Systems ROS: No change since H&P Vital Signs and I&O's Vital Signs: Temperature 97.6 F Pulse Rate [Left Brachial] 81 Pulse Rate 85 Respiratory Rate 24 Blood Pressure [Left Arm] 130/72 Blood Pressure 132/77 O2 Sat by Pulse Oximetry 87 Intake and Output: Intake & Output 12/27/20 12/28/20 12/29/20 12/30/20 23:59 23:59 23:59 23:59 Intake Total 1732 / 1732 1188 / 1188 1210 / 1210 468 / 468 Output Total 1650 / 1650 2200 / 2200 2150 / 2150 800 / 800 Balance 82 / 82 -1012 / -1012 -940 / -940 -332 / -332 Physical Exam Oriented: Unable to test Eyes: Normal Ear: Normal Nose: Normal Throat: Normal Respiratory: Diminished and Rales Cardiovascular: Normal : Normal Auscultation: Bowel Sounds: Normal Tenderness: Normal Skin: Normal Musculoskeletal: Normal Psychiatric: Normal Mood Description: Calm and Appropriate Affect: Normal Speech Pattern: Unclear Laboratory and Diagnostics Result Diagrams: 12/30/20 05:20 12/30/20 05:20 Labs: 12/28/20 09:00 Blood Blood Culture - Preliminary Laboratory WBC 10.2 X10^3/uL (3.6-10.0) H 12/30/20 05:20 RBC 4.53 X10^6/uL (4.7-6.0) L 12/30/20 05:20 Hgb 13.7 g/dL (13.5-18.0) 12/30/20 05:20 Hct 41.1 % (42.0-54.0) L 12/30/20 05:20 MCV 90.8 fL (80.0-100.0) 12/30/20 05:20 MCH 30.3 pg (27.0-34.0) 12/30/20 05:20 MCHC 33.4 g/dL (33.0-35.0) 12/30/20 05:20 RDW 14.2 % (11.6-16.5) 12/30/20 05:20 Plt Count 96 X10^3/uL (150.0-450.0) L 12/30/20 05:20 Plt Count Comment Decreased (ADEQUATE) 12/30/20 05:20 MPV 11.4 fL (7.4-11.0) H 12/30/20 05:20 Neut % (Auto) 95.0 % (42.0-75.0) H 12/30/20 05:20 Lymph % (Auto) 2.0 % (21.0-51.0) L 12/30/20 05:20 [place] % (Auto) 2.9 % (0.0-13.0) 12/30/20 05:20 Eos % (Auto) 0.0 % (0.9-2.9) L 12/30/20 05:20 Baso % (Auto) 0.1 % (0.2-1.0) L 12/30/20 05:20 Neut # (Auto) 9.7 x10^3/uL (2.2-4.8) H 12/30/20 05:20 Lymph # (Auto) 0.2 X10^3/uL (1.3-2.9) L 12/30/20 05:20 [place] # (Auto) 0.3 x10^3/uL (0.3-0.8) 12/30/20 05:20 Eos # (Auto) 0.0 x10^3/uL (0.0-0.2) 12/30/20 05:20 Baso # (Auto) 0.0 X10^3/uL (0.0-0.1) 12/30/20 05:20 Absolute Nucleated RBC 0.1 /100WBC 12/30/20 05:20 Total Counted 100 12/30/20 05:20 Neutrophils % (Manual) 94 % (39-76) H 12/30/20 05:20 Band Neutrophils % 1 % (0-10) 12/30/20 05:20 Lymphocytes % (Manual) 3 % (13-43) L 12/30/20 05:20 Monocytes % (Manual) 2 % (4-9) L 12/30/20 05:20 Metamyelocytes % 1 12/27/20 05:44 Giant Platelets Rare 12/30/20 05:20 Plt Morphology Comment Abnormal (NORMAL) 12/30/20 05:20 RBC Morphology Normal (NORMAL) 12/30/20 05:20 D-Dimer 3.60 ug/ml (0.0-0.57) H* 12/20/20 08:40 Sample Site Right brachial 12/24/20 11:20 ABG pH 7.600 (7.35-7.45) H* 12/24/20 11:20 ABG pCO2 27.0 mmHg (35.0-45.0) L 12/24/20 11:20 ABG pO2 51.0 mmHg (80.0-100.0) L 12/24/20 11:20 ABG HCO3 26.5 mmol/L (22-26) H 12/24/20 11:20 ABG O2 Saturation 92.0 % (90-100) 12/24/20 11:20 ABG Base Excess 5.6 mmol/L (-2.0-2.0) H 12/24/20 11:20 Andrew Test Na 12/24/20 11:20 A-a Gradient 272.0 mmHg 12/24/20 11:20 FiO2 50.0 12/24/20 11:20 Blood Gas Comments Daron well aw 12/24/20 11:20 Sodium 142 mmol/L (136-145) 12/30/20 05:20 Corrected Sodium 143 mmol/L (136-145) 12/30/20 05:20 Potassium 4.5 mmol/L (3.5-5.1) 12/30/20 05:20 Chloride 112 mmol/L (98-107) H 12/30/20 05:20 Carbon Dioxide 18.9 mmol/L (21-32) L 12/30/20 05:20 BUN 30 mg/dL (7-18) H 12/30/20 05:20 Creatinine 1.04 mg/dL (0.70-1.30) 12/30/20 05:20 Est GFR (MDRD) Af Amer > 60 (>60) 12/30/20 05:20 Est GFR (MDRD) Non-Af > 60 (>60) 12/30/20 05:20 Glucose 138 mg/dL (65-99) H 12/30/20 05:20 POC Glucose (mg/dL) 114 mg/dL (65-99) H 12/29/20 11:10 Calcium 8.1 mg/dL (8.5-10.1) L 12/30/20 05:20 Corrected Calcium 10.1 mg/dL (8.5-10.1) 12/30/20 05:20 Phosphorus 3.9 mg/dL (2.6-4.7) 12/29/20 04:30 Magnesium 2.6 mg/dL (1.7-2.9) 12/29/20 04:30 Total Bilirubin 1.10 mg/dL (0.2-1.0) H 12/30/20 05:20 AST 57 Units/L (15-37) H 12/30/20 05:20 ALT 89 Units/L (12-78) H 12/30/20 05:20 Alkaline Phosphatase 74 Units/L (46-116) 12/30/20 05:20 Creatine Kinase 177 Units/L (39-308) 12/20/20 14:27 CK-MB (CK-2) < 1.0 ng/mL (0-4.0) 12/20/20 14:27 CK/CKMB % Calc 0.6 % (<4) 12/20/20 14:27 Troponin I < 0.02 ng/mL (0-1.5) 12/20/20 14:27 C-Reactive Protein 93.50 mg/L (0-3.0) H 12/30/20 05:20 Total Protein 6.6 g/dL (6.4-8.2) 12/30/20 05:20 Albumin 1.5 g/dL (3.4-5.0) L 12/30/20 05:20 Globulin 5.1 g/dL (2.5-4.5) H 12/30/20 05:20 Albumin/Globulin Ratio 0.3 Ratio (1.1-2.1) L 12/30/20 05:20 Prealbumin 12.7 mg/dL (18-35.7) L 12/29/20 04:30 Triglycerides 21 mg/dL (0-150) 12/29/20 04:30 Lipase 185 Units/L (73-393) 12/19/20 19:01 Specimen Type Clean catch urine 12/20/20 02:17 Urine Color Dark yellow (YELLOW) 12/20/20 02:17 Urine Appearance Hazy (CLEAR) 12/20/20 02:17 Urine pH 6.0 (5.0 - 8.0) 12/20/20 02:17 Ur Specific [place] 1.015 (1.000-1.030) 12/20/20 02:17 Urine Protein 3+ (NEGATIVE) 12/20/20 02:17 Urine Glucose (UA) Negative (NEGATIVE) 12/20/20 02:17 Urine Ketones 2+ (NEGATIVE) 12/20/20 02:17 Urine Occult Blood 3+ (NEGATIVE) 12/20/20 02:17 Urine Nitrite Negative (NEGATIVE) 12/20/20 02:17 Urine Bilirubin 1+ (NEGATIVE) 12/20/20 02:17 Urine Urobilinogen 3+ (NORMAL) 12/20/20 02:17 Ur Leukocyte Esterase Negative (NEGATIVE) 12/20/20 02:17 Urine RBC 3-5 /HPF (0-3) A 12/20/20 02:17 Urine WBC 3-5 /HPF (0-5) 12/20/20 02:17 Ur Squamous Epith Cells Rare /HPF (NEGATIVE) 12/20/20 02:17 Urine Bacteria Trace /HPF (NEGATIVE) 12/20/20 02:17 Urine Mucus Few /HPF (NEGATIVE) 12/20/20 02:17 Urine Sperm Numerous /HPF (NEGATIVE) 12/20/20 02:17 Ur Culture Indicated? No/not indicated 12/20/20 02:17 Vancomycin Trough 12.8 ug/mL (15-20) L 12/28/20 20:30 SARS-CoV-2 (PCR) Positive (NEGATIVE) A 12/19/20 19:32 Influenza Type A (PCR) Negative (NEGATIVE) 12/19/20 19:32 Influenza Type B (PCR) Negative (NEGATIVE) 12/19/20 19:32 RSV (PCR) Negative (NEGATIVE) 12/19/20 19:32 Plan (1) Pneumonia due to COVID-19 virus: Status: Acute (2) Acute respiratory distress: Status: Acute (3) Alcohol use disorder: Status: Acute
[2020-12-30] MEDS: MORPHINE SULFATE INJ 2 MG INJ IVP PRN (20:10)
[2020-12-30 21:40] LABS: CREATININE 0.88 mg/dL (0.70-1.30); VANCOMYCIN,TROUGH 17.4 ug/mL (15-20)
[2020-12-31] MEDS: CLINIMIX IV SCH ×15 (02:22→23:04)
[2020-12-31] MEDS: MVI IV SCH ×15 (02:22→23:04)
[2020-12-31] MEDS: [UNRECOGNIZED DRUG - OTHER] IV SCH ×15 (02:22→23:04)
[2020-12-31] MEDS: CLEOCIN 600 MG IV PREMIX 600 MG/50 ML BAG IV SCH ×3 (05:36→22:16)
[2020-12-31 06:15] LABS: BASOPHILS % (AUTO) 0.1 % (0.2-1.0); EOSINOPHILS % (AUTO) 0.1 % (0.9-2.9); HEMATOCRIT 44.7 % (42.0-54.0); HEMOGLOBIN 15.3 g/dL (13.5-18.0); LYMPHOCYTES # (AUTO) 0.2 X10^3/uL (1.3-2.9); LYMPHOCYTES % (AUTO) 1.7 % (21.0-51.0); MEAN CORPUSCULAR HEMOGLOBIN 30.8 pg (27.0-34.0); MEAN CORPUSCULAR HGB CONC 34.1 g/dL (33.0-35.0); MEAN CORPUSCULAR VOLUME 90.2 fL (80.0-100.0); MEAN PLATELET VOLUME 11.8 fL (7.4-11.0); MONOCYTES # (AUTO) 0.2 x10^3/uL (0.3-0.8); MONOCYTES % (AUTO) 2.2 % (0.0-13.0); NEUTROPHILS # (AUTO) 9.8 x10^3/uL (2.2-4.8); NEUTROPHILS % (AUTO) 95.9 % (42.0-75.0); PLATELET COUNT 97 X10^3/uL (150.0-450.0); RED BLOOD COUNT 4.96 X10^6/uL (4.7-6.0); RED CELL DISTRIBUTION WIDTH 14.3 % (11.6-16.5); WHITE BLOOD COUNT 10.2 X10^3/uL (3.6-10.0)
[2020-12-31 06:35] LABS: ALANINE AMINOTRANSFERASE 129 Units/L (12-78); ALBUMIN 1.8 g/dL (3.4-5.0); ALKALINE PHOSPHATASE 93 Units/L (46-116); ASPARTATE AMINO TRANSFERASE 53 Units/L (15-37); BLOOD UREA NITROGEN 28 mg/dL (7-18); CALCIUM 8.6 mg/dL (8.5-10.1); CHLORIDE 112 mmol/L (98-107); COR CA(FOR HYPOALB) 10.4 mg/dL (8.5-10.1); COR NA(FOR HYPERGLY) 144 mmol/L (136-145); SODIUM 144 mmol/L (136-145); TOTAL PROTEIN 7.3 g/dL (6.4-8.2); eGFR NON BLACK RACES > 60 (>60)
--- NOTE | 2020-12-31 07:58 | RAD ---
HISTORYFollow up pneumoniaSTUDYAP [id number]/2021FINDINGSThe heart is not enlarged. There is similar appearance of bilateral airspace disease. Extrapulmonary air is identified along the left cardio mediastinal contour without definite pneumothorax.IMPRESSIONStable appearance of bilateral pneumonia. Small-volume pneumomediastinum without definite pneumothorax.Electronically signed by: DELANO MARTINEZ (Dec 31, 2020 07:56:09)
[2020-12-31] MEDS: BROVANA IN SCH ×2 (08:25→21:00)
[2020-12-31] MEDS: PULMICORT NEB TX 0.5 MG NEB SCH ×2 (08:25→21:00)
[2020-12-31 08:55] LABS: BAND NEUTROPHILS % 3 % (0-10)
[2020-12-31 08:56] LABS: GIANT PLATELET RARE; PLATELET MORPHOLOGY COMMENT ABNORMAL (NORMAL)
[2020-12-31] MEDS: LOVENOX INJ 30 MG SYR SC SCH ×2 (09:24→21:08)
[2020-12-31] MEDS: VANCOMYCIN IV *PREMIX 1 G/200 ML BAG 1 G/200 ML PIGGYBACK IV SCH ×2 (09:25→21:13)
[2020-12-31] MEDS: SOLU-Medrol 40 MG VIAL IVP SCH ×2 (09:25→21:11)
[2020-12-31] MEDS: THIAMINE HCL INJ IVP SCH ×2 (09:25→21:10)
[2020-12-31] MEDS: PROTONIX INJ 40 MG VIAL IVP SCH (09:25)
[2020-12-31] MEDS: NYSTATIN SUSP PO SCH ×4 (09:25→23:05)
[2020-12-31] MEDS: VITAMIN D3 125 mcg (5,000 UNITS) PO SCH (09:26)
[2020-12-31] MEDS: MORPHINE SULFATE INJ 2 MG INJ IVP PRN (19:55)
[2021-01-01] MEDS: MORPHINE SULFATE INJ 2 MG INJ IVP PRN ×3 (01:58→20:25)
[2021-01-01] MEDS: CLEOCIN 600 MG IV PREMIX 600 MG/50 ML BAG IV SCH ×3 (05:09→21:00)
[2021-01-01] MEDS: NS 250 ML IV 250 ML IV PRN ×2 (05:10→21:00)
[2021-01-01] MEDS: MVI IV SCH ×15 (05:39→20:24)
[2021-01-01] MEDS: CLINIMIX IV SCH ×15 (05:39→20:24)
[2021-01-01] MEDS: [UNRECOGNIZED DRUG - OTHER] IV SCH ×15 (05:39→20:24)
[2021-01-01 05:44] LABS: BASOPHILS % (AUTO) 0.1 % (0.2-1.0); HEMATOCRIT 40.4 % (42.0-54.0); HEMOGLOBIN 13.9 g/dL (13.5-18.0); LYMPHOCYTES # (AUTO) 0.2 X10^3/uL (1.3-2.9); LYMPHOCYTES % (AUTO) 1.7 % (21.0-51.0); MEAN CORPUSCULAR HEMOGLOBIN 30.3 pg (27.0-34.0); MEAN CORPUSCULAR HGB CONC 34.3 g/dL (33.0-35.0); MEAN CORPUSCULAR VOLUME 88.2 fL (80.0-100.0); MEAN PLATELET VOLUME 11.5 fL (7.4-11.0); MONOCYTES # (AUTO) 0.3 x10^3/uL (0.3-0.8); MONOCYTES % (AUTO) 2.9 % (0.0-13.0); NEUTROPHILS # (AUTO) 10.3 x10^3/uL (2.2-4.8); NEUTROPHILS % (AUTO) 95.3 % (42.0-75.0); PLATELET COUNT 94 X10^3/uL (150.0-450.0); RED BLOOD COUNT 4.58 X10^6/uL (4.7-6.0); RED CELL DISTRIBUTION WIDTH 14.1 % (11.6-16.5); WHITE BLOOD COUNT 10.9 X10^3/uL (3.6-10.0)
[2021-01-01 05:55] LABS: ABG BASE EXCESS -10.6 mmol/L (-2.0-2.0)
[2021-01-01 05:56] LABS: ABG ALLEN TEST POS
[2021-01-01 06:01] LABS: ALANINE AMINOTRANSFERASE 98 Units/L (12-78); ALBUMIN 1.7 g/dL (3.4-5.0); ALKALINE PHOSPHATASE 83 Units/L (46-116); ASPARTATE AMINO TRANSFERASE 34 Units/L (15-37); BLOOD UREA NITROGEN 34 mg/dL (7-18); CALCIUM 8.4 mg/dL (8.5-10.1); CHLORIDE 112 mmol/L (98-107); COR CA(FOR HYPOALB) 10.2 mg/dL (8.5-10.1); COR NA(FOR HYPERGLY) 143 mmol/L (136-145); CREATININE 0.94 mg/dL (0.70-1.30); MAGNESIUM 2.3 mg/dL (1.7-2.9); PHOSPHORUS 4.8 mg/dL (2.6-4.7); SODIUM 141 mmol/L (136-145); TOTAL PROTEIN 7.2 g/dL (6.4-8.2); TRIGLYCERIDES 37 mg/dL (0-150); eGFR NON BLACK RACES > 60 (>60)
[2021-01-01 06:31] LABS: CARBON DIOXIDE 13.7 mmol/L (21-32)
[2021-01-01 06:43] LABS: GIANT PLATELET RARE; PLATELET MORPHOLOGY COMMENT ABNORMAL (NORMAL)
--- NOTE | 2021-01-01 07:43 | RAD ---
HISTORYCOVID-19STUDYPortable AP [id number] heart size and contour with no change in appearance of the bilateral infiltrates. Pneumomediastinum is diminishing. No pneumothorax or other additional abnormality is seen.IMPRESSIONSimilar appearance of pneumonia. Decrease in pneumomediastinum.Electronically signed by: DELNAO MARTINEZ (Jan 01, 2021 07:41:23)
[2021-01-01] MEDS: LOVENOX INJ 30 MG SYR SC SCH ×2 (09:07→20:28)
[2021-01-01] MEDS: VITAMIN D3 125 mcg (5,000 UNITS) PO SCH (09:07)
[2021-01-01] MEDS: NYSTATIN SUSP PO SCH ×4 (09:08→22:12)
[2021-01-01] MEDS: PROTONIX INJ 40 MG VIAL IVP SCH (09:08)
[2021-01-01] MEDS: THIAMINE HCL INJ IVP SCH ×2 (09:08→20:27)
[2021-01-01] MEDS: SOLU-Medrol 40 MG VIAL IVP SCH ×2 (09:08→20:26)
[2021-01-01 09:13] LABS: CREATININE 1.13 mg/dL (0.70-1.30)
[2021-01-01 09:21] LABS: VANCOMYCIN,TROUGH 20.3 ug/mL (15-20)
[2021-01-01] MEDS: BROVANA IN SCH ×2 (10:04→20:39)
[2021-01-01] MEDS: PULMICORT NEB TX 0.5 MG NEB SCH ×2 (10:04→20:39)
[2021-01-01 11:39] LABS: SERUM ACETONE NEGATIVE (NEGATIVE)
[2021-01-01] MEDS: VANCOMYCIN IV *PREMIX 1 G/200 ML BAG 1 G/200 ML PIGGYBACK IV SCH ×2 (15:26→18:42)
[2021-01-01] MEDS ORDERED: BROVANA ONE (20:08)
[2021-01-01] MEDS ORDERED: PULMICORT NEB TX 0.5 MG NEB ONE (20:09)
[2021-01-01 22:18] LABS: ABG HCO3 12.7 mmol/L (22-26)
[2021-01-02] MEDS: MORPHINE SULFATE INJ 2 MG INJ IVP PRN ×4 (01:00→13:41)
[2021-01-02 04:38] LABS: ABG BASE EXCESS -12.5 mmol/L (-2.0-2.0)
[2021-01-02 04:40] LABS: ABG ALLEN TEST OK; ABG HCO3 10.7 mmol/L (22-26)
[2021-01-02] MEDS: CLEOCIN 600 MG IV PREMIX 600 MG/50 ML BAG IV SCH ×2 (05:26→14:06)
[2021-01-02 05:52] LABS: BASOPHILS % (AUTO) 0.2 % (0.2-1.0); HEMATOCRIT 41.2 % (42.0-54.0); LYMPHOCYTES # (AUTO) 0.2 X10^3/uL (1.3-2.9); LYMPHOCYTES % (AUTO) 1.6 % (21.0-51.0); MEAN CORPUSCULAR HEMOGLOBIN 30.2 pg (27.0-34.0); MEAN CORPUSCULAR HGB CONC 33.9 g/dL (33.0-35.0); MEAN CORPUSCULAR VOLUME 89.2 fL (80.0-100.0); MEAN PLATELET VOLUME 11.7 fL (7.4-11.0); MONOCYTES # (AUTO) 0.6 x10^3/uL (0.3-0.8); MONOCYTES % (AUTO) 3.9 % (0.0-13.0); NEUTROPHILS # (AUTO) 14.9 x10^3/uL (2.2-4.8); NEUTROPHILS % (AUTO) 94.3 % (42.0-75.0); PLATELET COUNT 113 X10^3/uL (150.0-450.0); RED BLOOD COUNT 4.62 X10^6/uL (4.7-6.0); RED CELL DISTRIBUTION WIDTH 14.2 % (11.6-16.5); WHITE BLOOD COUNT 15.8 X10^3/uL (3.6-10.0)
[2021-01-02 06:09] LABS: ALANINE AMINOTRANSFERASE 105 Units/L (12-78); ALBUMIN 1.8 g/dL (3.4-5.0); ALKALINE PHOSPHATASE 105 Units/L (46-116); ASPARTATE AMINO TRANSFERASE 40 Units/L (15-37); BLOOD UREA NITROGEN 41 mg/dL (7-18); CALCIUM 8.9 mg/dL (8.5-10.1); CARBON DIOXIDE 17.1 mmol/L (21-32); COR CA(FOR HYPOALB) 10.7 mg/dL (8.5-10.1); COR NA(FOR HYPERGLY) 149 mmol/L (136-145); CREATININE 1.07 mg/dL (0.70-1.30); SODIUM 147 mmol/L (136-145); TOTAL PROTEIN 7.6 g/dL (6.4-8.2); eGFR NON BLACK RACES > 60 (>60)
[2021-01-02 06:23] LABS: BAND NEUTROPHILS % 1 % (0-10); GIANT PLATELET RARE; PLATELET MORPHOLOGY COMMENT ABNORMAL (NORMAL)
[2021-01-02 06:36] LABS: CHLORIDE 116 mmol/L (98-107)
--- NOTE | 2021-01-02 07:23 | RAD ---
HISTORYCOVID-19 SOBSTUDYAP [id number] is slight interval improvement in pulmonary aeration with decreasing interstitial-alveolar infiltrates. The lungs are not yet clear. Heart size remains normal. There is persistent mild pneumomediastinum. No pneumothorax or pleural fluid demonstrated.IMPRESSIONSlight interval improvement in bilateral pneumonia. Stable small volume pneumomediastinum.Electronically signed by: DELANO MARTINEZ (Jan 02, 2021 07:21:04)
[2021-01-02] MEDS ORDERED: PULMICORT NEB TX 0.5 MG NEB ONE (08:28)
[2021-01-02] MEDS ORDERED: BROVANA ONE (08:28)
[2021-01-02] MEDS: BROVANA IN SCH (08:43)
[2021-01-02] MEDS: PULMICORT NEB TX 0.5 MG NEB SCH (08:43)
[2021-01-02] MEDS: LOVENOX INJ 30 MG SYR SC SCH (09:58)
[2021-01-02] MEDS: VITAMIN D3 125 mcg (5,000 UNITS) PO SCH (09:59)
[2021-01-02] MEDS: PROTONIX INJ 40 MG VIAL IVP SCH (09:59)
[2021-01-02] MEDS: NYSTATIN SUSP PO SCH ×2 (09:59→13:40)
[2021-01-02] MEDS: THIAMINE HCL INJ IVP SCH (09:59)
[2021-01-02] MEDS: SOLU-Medrol 40 MG VIAL IVP SCH (10:00)
[2021-01-02] MEDS: CLINIMIX IV SCH ×5 (10:22)
[2021-01-02] MEDS: MVI IV SCH ×5 (10:22)
[2021-01-02] MEDS: [UNRECOGNIZED DRUG - OTHER] IV SCH ×5 (10:22)
[2021-01-02] MEDS: VANCOMYCIN IV *PREMIX 1 G/200 ML BAG 1 G/200 ML PIGGYBACK IV SCH (10:23)
[2021-01-02 12:40] VITALS: BP 140/90
--- NOTE | 2021-01-04 11:16 | W.DIS.FURT ---
Summary of Discharge Discharge Summary of Date Date of Exam: 01/02/21 Admission Date Date of Admission: 12/20/20 Admission Diagnosis Patient Problems (Updated 12/22/20 @ 10:44 by Eros Nye) Face lacerations (Acute) S01.81XA Contusion of face (Acute) S00.83XA Hospital Course: Pt is a 80 year old male past medical history alcohol use disorder admitted for Covid-19 pneumonia with hypoxia. On admission patient had altered mental status that did not change throughout hospital course. He did become more alert but unable to speak or eat. He developed worsening hypoxia, utilizing 6L nasal cannula supplemental oxygen. He also had bacteremia with blood cultures positive for MRSA. He received treatment protocol that included: IVF D5W+20KCL@50ml/h, Remdesivir, Solumedrol 40mg q12h, scheduled Bronchodilators, Antibiotics: IV Vancomycin, Levaquin, Clindamycin, Lovenox 30mg BID, IV thiamine 200mg BID, TPN for nutrition, immune supporting supplements, supplemental O2, I/S, Respiratory therapy consult, Pneumonia protocol. MRI/MRA of the brain was obtained that revealed: Prominent confluent increased T2 signal is seen in the supratentorial white matter possibly due to chronic small vessel ischemic changes or other cause of encephalopathy. Prominent diffuse volume loss is seen in the brain. CXR: Vague patchy areas of opacity in the lungs are consistent with bronchopneumonia. It was discussed extensively with daughter patient's hospital course and poor prognosis, verbalized understanding. Daughter desire for patient to be at home with home hospice. Pt discharged home with hospice. Vital Signs: Vital Signs (72 hours) 01/01/21 12:00 01/01/21 16:00 01/01/21 20:00 Temperature 97.8 F 96.8 F L Pulse Rate 83 93 H Pulse Rate [Left Brachial] 110 H Respiratory Rate 24 28 H 30 H Blood Pressure 149/83 144/87 Blood Pressure [Right Arm] 147/89 O2 Sat by Pulse Oximetry 94 L 98 94 L 01/01/21 20:25 01/01/21 20:41 01/01/21 20:55 Temperature Pulse Rate 116 H Pulse Rate [Left Brachial] Respiratory Rate 30 H 22 Blood Pressure Blood Pressure [Right Arm] O2 Sat by Pulse Oximetry 91 L 01/02/21 00:00 01/02/21 01:00 01/02/21 01:30 Temperature 96.9 F L Pulse Rate Pulse Rate [Left Brachial] 99 H Respiratory Rate 28 H 26 H 26 H Blood Pressure Blood Pressure [Right Arm] 142/95 O2 Sat by Pulse Oximetry 93 L 01/02/21 04:00 01/02/21 05:26 01/02/21 05:56 Temperature 97.7 F Pulse Rate Pulse Rate [Left Brachial] 120 H Respiratory Rate 36 H 30 H 24 Blood Pressure Blood Pressure [Right Arm] 122/80 O2 Sat by Pulse Oximetry 92 L 01/02/21 08:00 01/02/21 10:01 01/02/21 12:00 Temperature 97.6 F 97.8 F Pulse Rate Pulse Rate [Left Brachial] 110 H 109 H Respiratory Rate 24 24 30 H Blood Pressure Blood Pressure [Right Arm] 132/96 140/90 O2 Sat by Pulse Oximetry 95 90 L 01/02/21 13:41 Temperature Pulse Rate Pulse Rate [Left Brachial] Respiratory Rate 26 H Blood Pressure Blood Pressure [Right Arm] O2 Sat by Pulse Oximetry Labs: Laboratory Last Values WBC 15.8 X10^3/uL (3.6-10.0) H 01/02/21 05:00 RBC 4.62 X10^6/uL (4.7-6.0) L 01/02/21 05:00 Hgb 14.0 g/dL (13.5-18.0) 01/02/21 05:00 Hct 41.2 % (42.0-54.0) L 01/02/21 05:00 MCV 89.2 fL (80.0-100.0) 01/02/21 05:00 MCH 30.2 pg (27.0-34.0) 01/02/21 05:00 MCHC 33.9 g/dL (33.0-35.0) 01/02/21 05:00 RDW 14.2 % (11.6-16.5) 01/02/21 05:00 Plt Count 113 X10^3/uL (150.0-450.0) L 01/02/21 05:00 Plt Count Comment Decreased (ADEQUATE) 01/02/21 05:00 MPV 11.7 fL (7.4-11.0) H 01/02/21 05:00 Neut % (Auto) 94.3 % (42.0-75.0) H 01/02/21 05:00 Lymph % (Auto) 1.6 % (21.0-51.0) L 01/02/21 05:00 [place] % (Auto) 3.9 % (0.0-13.0) 01/02/21 05:00 Eos % (Auto) 0.0 % (0.9-2.9) L 01/02/21 05:00 Baso % (Auto) 0.2 % (0.2-1.0) 01/02/21 05:00 Neut # (Auto) 14.9 x10^3/uL (2.2-4.8) H 01/02/21 05:00 Lymph # (Auto) 0.2 X10^3/uL (1.3-2.9) L 01/02/21 05:00 [place] # (Auto) 0.6 x10^3/uL (0.3-0.8) 01/02/21 05:00 Eos # (Auto) 0.0 x10^3/uL (0.0-0.2) 01/02/21 05:00 Baso # (Auto) 0.0 X10^3/uL (0.0-0.1) 01/02/21 05:00 Absolute Nucleated RBC 0.1 /100WBC 01/02/21 05:00 Total Counted 100 01/02/21 05:00 Neutrophils % (Manual) 97 % (39-76) H 01/02/21 05:00 Band Neutrophils % 1 % (0-10) 01/02/21 05:00 Lymphocytes % (Manual) 2 % (13-43) L 01/02/21 05:00 Monocytes % (Manual) 4 % (4-9) 01/01/21 04:19 Metamyelocytes % 1 12/27/20 05:44 Giant Platelets Rare 01/02/21 05:00 Plt Morphology Comment Abnormal (NORMAL) 01/02/21 05:00 RBC Morphology Normal (NORMAL) 01/02/21 05:00 D-Dimer 3.60 ug/ml (0.0-0.57) H* 12/20/20 08:40 Sample Site Rr 01/02/21 04:34 ABG pH 7.360 (7.35-7.45) 01/02/21 04:34 ABG pCO2 19.0 mmHg (35.0-45.0) L* 01/02/21 04:34 ABG pO2 52.0 mmHg (80.0-100.0) L 01/02/21 04:34 ABG HCO3 10.7 mmol/L (22-26) L* 01/02/21 04:34 ABG O2 Saturation 85.0 % (90-100) L 01/02/21 04:34 ABG Base Excess -12.5 mmol/L (-2.0-2.0) L 01/02/21 04:34 Andrew Test Ok 01/02/21 04:34 A-a Gradient 209.0 mmHg 01/02/21 04:34 FiO2 40.0 01/02/21 04:34 Blood Gas Comments Pt nancy well llj punch box tender 01/02/21 04:34 Sodium 147 mmol/L (136-145) H 01/02/21 05:00 Corrected Sodium 149 mmol/L (136-145) H 01/02/21 05:00 Potassium 4.6 mmol/L (3.5-5.1) 01/02/21 05:00 Chloride 116 mmol/L (98-107) H* 01/02/21 05:00 Carbon Dioxide 17.1 mmol/L (21-32) L 01/02/21 05:00 BUN 41 mg/dL (7-18) H 01/02/21 05:00 Creatinine 1.07 mg/dL (0.70-1.30) 01/02/21 05:00 Est GFR (MDRD) Af Amer > 60 (>60) 01/02/21 05:00 Est GFR (MDRD) Non-Af > 60 (>60) 01/02/21 05:00 Glucose 163 mg/dL (65-99) H 01/02/21 05:00 POC Glucose (mg/dL) 131 mg/dL (65-99) H 01/01/21 23:29 Lactic Acid 3.0 mmol/L (0.4-2.0) H 01/02/21 05:00 Calcium 8.9 mg/dL (8.5-10.1) 01/02/21 05:00 Corrected Calcium 10.7 mg/dL (8.5-10.1) H 01/02/21 05:00 Phosphorus 4.8 mg/dL (2.6-4.7) H 01/01/21 04:19 Magnesium 2.3 mg/dL (1.7-2.9) 01/01/21 04:19 Total Bilirubin 1.70 mg/dL (0.2-1.0) H 01/02/21 05:00 AST 40 Units/L (15-37) H 01/02/21 05:00 ALT 105 Units/L (12-78) H 01/02/21 05:00 Alkaline Phosphatase 105 Units/L (46-116) 01/02/21 05:00 Creatine Kinase 177 Units/L (39-308) 12/20/20 14:27 CK-MB (CK-2) < 1.0 ng/mL (0-4.0) 12/20/20 14:27 CK/CKMB % Calc 0.6 % (<4) 12/20/20 14:27 Troponin I < 0.02 ng/mL (0-1.5) 12/20/20 14:27 C-Reactive Protein 47.30 mg/L (0-3.0) H 12/31/20 04:37 Total Protein 7.6 g/dL (6.4-8.2) 01/02/21 05:00 Albumin 1.8 g/dL (3.4-5.0) L 01/02/21 05:00 Globulin 5.8 g/dL (2.5-4.5) H 01/02/21 05:00 Albumin/Globulin Ratio 0.3 Ratio (1.1-2.1) L 01/02/21 05:00 Prealbumin 12.7 mg/dL (18-35.7) L 12/29/20 04:30 Triglycerides 37 mg/dL (0-150) 01/01/21 04:19 Lipase 185 Units/L (73-393) 12/19/20 19:01 Specimen Type Clean catch urine 12/20/20 02:17 Urine Color Dark yellow (YELLOW) 12/20/20 02:17 Urine Appearance Hazy (CLEAR) 12/20/20 02:17 Urine pH 6.0 (5.0 - 8.0) 12/20/20 02:17 Ur Specific [place] 1.015 (1.000-1.030) 12/20/20 02:17 Urine Protein 3+ (NEGATIVE) 12/20/20 02:17 Urine Glucose (UA) Negative (NEGATIVE) 12/20/20 02:17 Urine Ketones 2+ (NEGATIVE) 12/20/20 02:17 Urine Occult Blood 3+ (NEGATIVE) 12/20/20 02:17 Urine Nitrite Negative (NEGATIVE) 12/20/20 02:17 Urine Bilirubin 1+ (NEGATIVE) 12/20/20 02:17 Urine Urobilinogen 3+ (NORMAL) 12/20/20 02:17 Ur Leukocyte Esterase Negative (NEGATIVE) 12/20/20 02:17 Urine RBC 3-5 /HPF (0-3) A 12/20/20 02:17 Urine WBC 3-5 /HPF (0-5) 12/20/20 02:17 Ur Squamous Epith Cells Rare /HPF (NEGATIVE) 12/20/20 02:17 Urine Bacteria Trace /HPF (NEGATIVE) 12/20/20 02:17 Urine Mucus Few /HPF (NEGATIVE) 12/20/20 02:17 Urine Sperm Numerous /HPF (NEGATIVE) 12/20/20 02:17 Ur Culture Indicated? No/not indicated 12/20/20 02:17 Vancomycin Trough 20.3 ug/mL (15-20) H* 01/01/21 08:23 Acetone, Semi-Quant Negative (NEGATIVE) 01/01/21 10:37 SARS-CoV-2 (PCR) Positive (NEGATIVE) A 12/19/20 19:32 Influenza Type A (PCR) Negative (NEGATIVE) 12/19/20 19:32 Influenza Type B (PCR) Negative (NEGATIVE) 12/19/20 19:32 RSV (PCR) Negative (NEGATIVE) 12/19/20 19:32 Reason For Visit: COVID Discharge Date Discharge Date: 01/02/21 Discharge Diagnosis All Active Problems (Updated 12/22/20 @ 10:44 by Eros Nye) Pneumonia due to COVID-19 virus (Acute) Alcohol use disorder (Acute) Face lacerations (Acute) Contusion of face (Acute) COVID (Acute) Acute respiratory distress (Acute) Plan of Treatment: Continue with present treatment and follow up plan. Pt is to keep follow up appointment as instructed and take medications as ordered. Discharge Medications Discharge Medications: Penicillins Allergy (Verified 08/31/21 14:17) CONTINUE taking the following medications NK 12/20/20 [History] New Prescriptions lorazepam [Ativan] 0.5 mg PO Q4H PRN 7 Days #30 tab MDD 3 tabs 01/02/21 [Rx] morphine 5 mg PO Q4H PRN 7 Days #100 ml MDD 15 01/02/21 [Rx] Discharge Disposition Discharge Disposition: Home with hospice Discharge Condition: Guarded Discharge Plan Discharge Plan Hospital Course: Pt is a 80 year old male past medical history alcohol use disorder admitted for Covid-19 pneumonia with hypoxia. On admission patient had altered mental status that did not change throughout hospital course. He did become more alert but unable to speak or eat. He developed worsening hypoxia, utilizing 6L nasal cannula supplemental oxygen. He also had bacteremia with blood cultures positive for MRSA. He received treatment protocol that included: IVF D5W+20KCL@50ml/h, Remdesivir, Solumedrol 40mg q12h, scheduled Bronchodilators, Antibiotics: IV Vancomycin, Levaquin, Clindamycin, Lovenox 30mg BID, IV thiamine 200mg BID, TPN for nutrition, immune supporting supplements, supplemental O2, I/S, Respiratory therapy consult, Pneumonia protocol. MRI/MRA of the brain was obtained that revealed: Prominent confluent increased T2 signal is seen in the supratentorial white matter possibly due to chronic small vessel ischemic changes or other cause of encephalopathy. Prominent diffuse volume loss is seen in the brain. CXR: Vague patchy areas of opacity in the lungs are consistent with bronchopneumonia. It was discussed extensively with daughter patient's hospital course and poor prognosis, verbalized understanding. Daughter desire for patient to be at home with home hospice. Pt discharged home with hospice. Patient Disposition: 50 DISCHARGED TO HOSPICE -HOME Condition: Stable Health Concerns: Post Hospitalization: new medications and changes needed to prevent readmission or further decline. Pt educated and given instructions on all concerns. Care Plan Goals: Problem: Infection Goal: Temperature within normal limits. Resolved infection. Instructions: Follow provided instructions. Follow up with primary physician as directed. Contact primary care physician or report to the closest Emergency Room if condition worsens. Plan of Treatment: Continue with present treatment and follow up plan. Pt is to keep follow up appointment as instructed and take medications as ordered. Prescriptions: New lorazepam [Ativan] 0.5 mg tablet 0.5 mg PO Q4H MDD 3 tabs PRN7 Days Qty: 30 RF: 0 morphine 10 mg/5 mL solution 5 mg PO Q4H MDD 15 PRN7 Days Qty: 100 RF: 0 No Action NK RF: 0 Follow ups/Referrals Follow ups/Referrals: [facility],None [Primary Care Provider] - 3 days Instructions Instructions: Home Oxygen Use, Adult, and Dying, End-of-Life Care, Hospice Stand Alone Forms: Excuse From Work or School, Precautions for COVID19, [facility], Patient Portal, Social Distancing
== END 2021-01-02 14:25 | disposition hospice, home (50) | DRG 193 ==
LOC: EDBD → ER 17:30 → OBS 12-20 08:49 → MERGE 12-20 08:49 → OBS 12-20 10:26 → MED/SURG 12-21 05:03
PROVIDERS: ADMIT Family Medicine; ATTEND Family Medicine
DX: R22.0 Localized swelling, mass and lump, head; J02.9 Acute pharyngitis, unspecified; J12.81 Pneumonia due to SARS-associated coronavirus; I87.2 Venous insufficiency (chronic) (peripheral); F10.10 Alcohol abuse, uncomplicated; R22.1 Localized swelling, mass and lump, neck; R79.89 Other specified abnormal findings of blood chemistry; A41.02 Sepsis due to Methicillin resistant Staphylococcus aureus; R10.9 Unspecified abdominal pain; R06.02 Shortness of breath; R41.82 Altered mental status, unspecified; R09.02 Hypoxemia